=== PATIENT | female | born 1940 | race Caucasian/White ===

== ENCOUNTER 2017-11-27 19:52 | Inpatient (IN) | payer MEDICARE ==
[~2017-11-27] VITALS: Ht 170.2 cm; Wt 73.9 kg
[~2017-11-27 19:52] MED LIST: ACET325 PO; ASPI325 PO; BISA5EC; CARV6.25 PO; CEPH500 PO; FLUSAL1005 INH; FOLI1; GABA300 PO; GABA600 PO; HYDCHL25; IRBE150; LINZESS145 MCG PO; METF500; METF500C PO; Metformin HCl1000 MG PO; NAPR550 PO; Norco 5-325 Ta1 EACH PO; OXYC5 PO; Pravastatin Sod80 MG PO; RXNAPNA550 PO; ZESTORETIC 20-1 EAC1 PO; Zofran Odt4 MG SL
[2017-11-27] MEDS ORDERED: ASCO500 PO (20:08)
[2017-11-27] MEDS ORDERED: Stool Softener100 MG PO (20:08)
[2017-11-27] MEDS ORDERED: PROBIOTIC1 EAC1 PO (20:08)
[2017-11-27] MEDS ORDERED: METTREX2.5 PO (20:09)
[2017-11-27 21:11] LABS: BASOPHILS ABSOLUTE AUTO 0.01 K/mm3 (0.00-0.23); BASOPHILS PERCENT AUTO 0 % (0-2); EOSINOPHILS ABSOLUTE AUTO 0.14 K/mm3 (0.00-0.68); EOSINOPHILS PERCENT AUTO 4 % (0-6); Hematocrit 30.2 % (33.0-51.0); Hemoglobin 10.1 g/dL (11.5-16.0); IMMATURE GRAN PERCENT AUTO 0 % (0-1); LYMPHOCYTES ABSOLUTE AUTO 0.84 K/mm3 (0.84-5.20); LYMPHOCYTES PERCENT AUTO 26 % (21-46); MONOCYTES ABSOLUTE AUTO 0.21 K/mm3 (0.16-1.47); MONOCYTES PERCENT AUTO 6 % (4-13); Mean Corpuscular HGB 34.6 pg (26.0-34.0); Mean Corpuscular HGB Conc 33.4 g/dL (31.5-36.5); Mean Corpuscular Volume 103 fL (80-100); Mean Platelet Volume 11.2 fL (9.1-12.4); NEUTROPHILS ABSOLUTE AUTO 2.07 K/mm3 (1.96-9.15); NEUTROPHILS PERCENT AUTO 63 % (41-73); RDW Coefficient Variation 15.4 % (11.7-14.2); RDW Standard Deviation 57.6 fL (35.1-46.3); Red Blood Cell Count 2.92 M/mm3 (3.80-5.20); White Blood Cell Count 3.27 K/mm3 (4.00-11.30)
[2017-11-27 21:15] LABS: Platelet Count 45 K/mm3 (150-400)
[2017-11-27 21:26] LABS: Albumin, Blood 2.6 g/dL (3.4-5.0); Albumin/Globulin Ratio 0.6 (0.8-1.8); Bilirubin, Total 0.3 mg/dL (0.1-1.0); Bun/Creatinine Ratio 33.9 (12.0-20.0); Calcium, Blood 8.9 mg/dL (8.5-10.1); Creatinine, Blood 1.18 mg/dL (0.40-1.00); Globulin, Blood 4.1 g/dL (2.2-4.0); Potassium, Blood 4.4 mmol/L (3.5-5.5); Total Protein, Blood 6.7 g/dL (6.4-8.2)
[2017-11-27 22:39] LABS: Magnesium, Blood 2.5 mg/dL (1.6-2.4)
[2017-11-29 05:09] LABS: BASOPHILS ABSOLUTE AUTO 0.01 K/mm3 (0.00-0.23); BASOPHILS PERCENT AUTO 0 % (0-2); EOSINOPHILS ABSOLUTE AUTO 0.15 K/mm3 (0.00-0.68); EOSINOPHILS PERCENT AUTO 7 % (0-6); Hematocrit 27.2 % (33.0-51.0); Hemoglobin 8.9 g/dL (11.5-16.0); IMMATURE GRAN ABSOLUTE AUTO 0.01 K/mm3 (0.00-0.10); IMMATURE GRAN PERCENT AUTO 0 % (0-1); LYMPHOCYTES ABSOLUTE AUTO 0.43 K/mm3 (0.84-5.20); LYMPHOCYTES PERCENT AUTO 19 % (21-46); MONOCYTES ABSOLUTE AUTO 0.24 K/mm3 (0.16-1.47); MONOCYTES PERCENT AUTO 10 % (4-13); Mean Corpuscular HGB 34.2 pg (26.0-34.0); Mean Corpuscular HGB Conc 32.7 g/dL (31.5-36.5); Mean Corpuscular Volume 105 fL (80-100); Mean Platelet Volume 10.6 fL (9.1-12.4); NEUTROPHILS ABSOLUTE AUTO 1.47 K/mm3 (1.96-9.15); NEUTROPHILS PERCENT AUTO 64 % (41-73); RDW Coefficient Variation 15.9 % (11.7-14.2); RDW Standard Deviation 59.3 fL (35.1-46.3); White Blood Cell Count 2.31 K/mm3 (4.00-11.30)
[2017-11-29 05:17] LABS: Platelet Count 27 K/mm3 (150-400)
[2017-11-29 05:23] LABS: Bun/Creatinine Ratio 24.6 (12.0-20.0); Calcium, Blood 7.7 mg/dL (8.5-10.1); Creatinine, Blood 1.14 mg/dL (0.40-1.00); Potassium, Blood 4.4 mmol/L (3.5-5.5)
[2017-11-29] MEDS ORDERED: CLIN300 PO (09:34)
== END 2017-11-29 12:53 | disposition home or self-care (01) | DRG 603 ==
LOC: ER 19:52 → MEDS 19:53 → ENPENDDIS 11-29 09:47 → MEDS 11-29 12:53
PROVIDERS: Emergency Medicine; Internal Medicine
DX: L02.211 Cutaneous abscess of abdominal wall (principal); D61.818 Other pancytopenia; J44.9 Chronic obstructive pulmonary disease, unspecified; L03.311 Cellulitis of abdominal wall; I10 Essential (primary) hypertension; E11.9 Type 2 diabetes mellitus without complications; Z90.49 Acquired absence of other specified parts of digestive tract; Z79.82 Long term (current) use of aspirin; Z79.84 Long term (current) use of oral hypoglycemic drugs; F17.200 Nicotine dependence, unspecified, uncomplicated; I71.4 Abdominal aortic aneurysm, without rupture; K43.9 Ventral hernia without obstruction or gangrene; D69.6 Thrombocytopenia, unspecified; L98.499 Non-pressure chronic ulcer of skin of other sites with unspecified severity; Z86.14 Personal history of Methicillin resistant Staphylococcus aureus infection; Z87.01 Personal history of pneumonia (recurrent); Z86.73 Personal history of transient ischemic attack (TIA), and cerebral infarction without residual deficits; D89.9 Disorder involving the immune mechanism, unspecified; Z98.890 Other specified postprocedural states
CPT/HCPCS: 36415; 74177; 80048; 80053; 83605; 83735; 85025; 87070; 87205; 96361; 96365; 96366; 96367; 99285; G0378; J2543; J3370; J7030; Q9967

== ENCOUNTER 2017-12-08 01:10 | Observation (INO) | payer MEDICARE ==
[~2017-12-08] VITALS: Ht 170.2 cm; Wt 70.1 kg
[~2017-12-08 01:10] MED LIST changes: +ASCO500 PO; +CLIN300 PO; +METTREX2.5 PO; +PROBIOTIC1 EAC1 PO; +Stool Softener100 MG PO
[2017-12-08] MEDS ORDERED: LISINOPRIL (01:25)
[2017-12-08 01:59] LABS: Anion Gap 10 mmol/L (6-16); Blood Urea Nitrogen 23 mg/dL (8-24); Bun/Creatinine Ratio 20.2 (12.0-20.0); CO2, Blood 23 mmol/L (21-32); Calcium, Blood 9.3 mg/dL (8.5-10.1); Chloride, Blood 106 mmol/L (98-108); Creatinine, Blood 1.14 mg/dL (0.40-1.00); Glomerular Filtration Rate 49 (60-); Glucose, Blood 80 mg/dL (70-99); Potassium, Blood 4.2 mmol/L (3.5-5.5); Sodium, Blood 139 mmol/L (136-145); Troponin I <0.015 ng/mL (0.000-0.040)
[2017-12-08 02:02] LABS: BASOPHILS ABSOLUTE AUTO 0.03 K/mm3 (0.00-0.23); BASOPHILS PERCENT AUTO 1 % (0-2); EOSINOPHILS ABSOLUTE AUTO 0.24 K/mm3 (0.00-0.68); EOSINOPHILS PERCENT AUTO 5 % (0-6); Hematocrit 30.5 % (33.0-51.0); Hemoglobin 10.1 g/dL (11.5-16.0); IMMATURE GRAN ABSOLUTE AUTO 0.03 K/mm3 (0.00-0.10); IMMATURE GRAN PERCENT AUTO 1 % (0-1); LYMPHOCYTES ABSOLUTE AUTO 1.22 K/mm3 (0.84-5.20); LYMPHOCYTES PERCENT AUTO 24 % (21-46); MONOCYTES ABSOLUTE AUTO 1.19 K/mm3 (0.16-1.47); MONOCYTES PERCENT AUTO 23 % (4-13); Mean Corpuscular HGB 33.6 pg (26.0-34.0); Mean Corpuscular HGB Conc 33.1 g/dL (31.5-36.5); Mean Corpuscular Volume 101 fL (80-100); Mean Platelet Volume 11.8 fL (9.1-12.4); NEUTROPHILS ABSOLUTE AUTO 2.48 K/mm3 (1.96-9.15); NEUTROPHILS PERCENT AUTO 48 % (41-73); Platelet Count 164 K/mm3 (150-400); RDW Coefficient Variation 16.4 % (11.7-14.2); RDW Standard Deviation 59.7 fL (35.1-46.3); Red Blood Cell Count 3.01 M/mm3 (3.80-5.20); White Blood Cell Count 5.19 K/mm3 (4.00-11.30)
[2017-12-08 02:49] LABS: Source, Urine Clean Catch
[2017-12-08 02:52] LABS: Bilirubin, Urine Neg (Neg); Blood, Urine 1+ (Neg); Glucose Qualitative, Urine Neg (Neg); Ketones, Urine Neg (Neg); Leukocyte Esterase, Urine 2+ (Neg); Nitrite, Urine Neg (Neg); Protein, Urine 3+ (Neg); Specific Gravity, Urine 1.015 (1.003-1.022); Urobilinogen, Urine NORM (Normal)
[2017-12-08 02:56] LABS: Appearance, Urine Clear (Clear); Color, Urine Yellow (P-Yellow)
[2017-12-08 02:57] LABS: Bacteria Many /hpf; Red Blood Cells, Urine 0-2 /hpf (0-2); Squamous Epithelial Cells Mod /hpf (Few); White Blood Cells, Urine 25-50 /hpf (0-5)
[2017-12-08 13:46] LABS: Hematocrit 30.1 % (33.0-51.0); Hemoglobin 9.8 g/dL (11.5-16.0); Mean Corpuscular HGB 33.9 pg (26.0-34.0); Mean Corpuscular HGB Conc 32.6 g/dL (31.5-36.5); Mean Platelet Volume 11.4 fL (9.1-12.4); Platelet Count 164 K/mm3 (150-400); RDW Coefficient Variation 16.3 % (11.7-14.2); RDW Standard Deviation 62.4 fL (35.1-46.3); Red Blood Cell Count 2.89 M/mm3 (3.80-5.20); White Blood Cell Count 6.37 K/mm3 (4.00-11.30)
[2017-12-08 13:54] LABS: Mean Corpuscular Volume 104 fL (80-100)
[2017-12-08 14:12] LABS: Albumin, Blood 2.3 g/dL (3.4-5.0); Albumin/Globulin Ratio 0.5 (0.8-1.8); Bilirubin, Total 0.2 mg/dL (0.1-1.0); Bun/Creatinine Ratio 17.3 (12.0-20.0); Calcium, Blood 9.1 mg/dL (8.5-10.1); Creatinine, Blood 1.1 mg/dL (0.40-1.00); Globulin, Blood 4.3 g/dL (2.2-4.0); Potassium, Blood 4.9 mmol/L (3.5-5.5); Total Protein, Blood 6.6 g/dL (6.4-8.2)
[2017-12-10 04:00] LABS: BASOPHILS ABSOLUTE AUTO 0.03 K/mm3 (0.00-0.23); BASOPHILS PERCENT AUTO 1 % (0-2); EOSINOPHILS ABSOLUTE AUTO 0.28 K/mm3 (0.00-0.68); EOSINOPHILS PERCENT AUTO 5 % (0-6); Hematocrit 30.1 % (33.0-51.0); Hemoglobin 9.8 g/dL (11.5-16.0); IMMATURE GRAN ABSOLUTE AUTO 0.02 K/mm3 (0.00-0.10); IMMATURE GRAN PERCENT AUTO 0 % (0-1); LYMPHOCYTES PERCENT AUTO 21 % (21-46); MONOCYTES ABSOLUTE AUTO 1.36 K/mm3 (0.16-1.47); MONOCYTES PERCENT AUTO 26 % (4-13); Mean Corpuscular HGB 33.6 pg (26.0-34.0); Mean Corpuscular HGB Conc 32.6 g/dL (31.5-36.5); Mean Corpuscular Volume 103 fL (80-100); Mean Platelet Volume 11.7 fL (9.1-12.4); NEUTROPHILS ABSOLUTE AUTO 2.42 K/mm3 (1.96-9.15); NEUTROPHILS PERCENT AUTO 46 % (41-73); Platelet Count 185 K/mm3 (150-400); RDW Coefficient Variation 16.1 % (11.7-14.2); Red Blood Cell Count 2.92 M/mm3 (3.80-5.20); White Blood Cell Count 5.21 K/mm3 (4.00-11.30)
[2017-12-10 04:19] LABS: Creatinine, Blood 1.13 mg/dL (0.40-1.00); Potassium, Blood 4.4 mmol/L (3.5-5.5)
[2017-12-10] MEDS ORDERED: LEVFLO500 PO (10:25)
[2017-12-10] MEDS ORDERED: Pedi-Dri 100,0060 GM TOP (10:27)
== END 2017-12-10 10:47 | disposition home or self-care (01) ==
LOC: ER 01:10 → PCU 02:17 → ER 04:20 → PCU 04:26
PROVIDERS: Emergency Medicine; Internal Medicine; Internal Medicine Endocrinology, Diabetes & Metabolism
DX: N39.0 Urinary tract infection, site not specified (principal); R53.1 Weakness; L03.311 Cellulitis of abdominal wall; E86.0 Dehydration; J44.9 Chronic obstructive pulmonary disease, unspecified; I10 Essential (primary) hypertension; F17.210 Nicotine dependence, cigarettes, uncomplicated; Z86.73 Personal history of transient ischemic attack (TIA), and cerebral infarction without residual deficits; Z79.899 Other long term (current) drug therapy; Z88.2 Allergy status to sulfonamides; Z88.5 Allergy status to narcotic agent
CPT/HCPCS: 36415; 51702; 70450; 71045; 80048; 80053; 81001; 84484; 85025; 85027; 87077; 87086; 87186; 93005; 93010; 96361; 96374; 97110; 97116; 97162; 97165; 97530; 99285; G8978; G8979; G8987; G8988; G8989; J0696; J1650; J7030

== ENCOUNTER 2017-12-20 11:40 | Inpatient (IN) | payer MEDICARE ==
[~2017-12-20] VITALS: Ht 170.2 cm; Wt 71.0 kg
[~2017-12-20 11:40] MED LIST changes: +CARV3.125 PO; -CARV6.25 PO; +LEVFLO500 PO; +LISINOPRIL; +Pedi-Dri 100,0060 GM TOP
[2017-12-20 12:14] LABS: Source, Urine Catheter
[2017-12-20 12:17] LABS: Bilirubin, Urine Neg (Neg); Blood, Urine Neg (Neg); Glucose Qualitative, Urine Neg (Neg); Ketones, Urine Neg (Neg); Leukocyte Esterase, Urine 1+ (Neg); Nitrite, Urine Neg (Neg); Protein, Urine 3+ (Neg); Specific Gravity, Urine 1.015 (1.003-1.022); Urobilinogen, Urine NORM (Normal)
[2017-12-20 12:29] LABS: Appearance, Urine Hazy (Clear); Color, Urine Yellow (P-Yellow)
[2017-12-20 12:30] LABS: Amorphous Mod (0-Heavy); Bacteria Mod /hpf; Red Blood Cells, Urine Not Seen /hpf (0-2); Squamous Epithelial Cells Mod /hpf (Few)
[2017-12-20 12:51] LABS: BASOPHILS ABSOLUTE AUTO 0.04 K/mm3 (0.00-0.23); BASOPHILS PERCENT AUTO 0 % (0-2); EOSINOPHILS ABSOLUTE AUTO 0.09 K/mm3 (0.00-0.68); EOSINOPHILS PERCENT AUTO 1 % (0-6); Hematocrit 32.8 % (33.0-51.0); Hemoglobin 10.9 g/dL (11.5-16.0); IMMATURE GRAN ABSOLUTE AUTO 0.02 K/mm3 (0.00-0.10); IMMATURE GRAN PERCENT AUTO 0 % (0-1); LYMPHOCYTES ABSOLUTE AUTO 1.19 K/mm3 (0.84-5.20); LYMPHOCYTES PERCENT AUTO 13 % (21-46); MONOCYTES PERCENT AUTO 17 % (4-13); Mean Corpuscular HGB 33.6 pg (26.0-34.0); Mean Corpuscular HGB Conc 33.2 g/dL (31.5-36.5); Mean Corpuscular Volume 101 fL (80-100); Mean Platelet Volume 11.6 fL (9.1-12.4); NEUTROPHILS ABSOLUTE AUTO 6.45 K/mm3 (1.96-9.15); NEUTROPHILS PERCENT AUTO 69 % (41-73); Platelet Count 108 K/mm3 (150-400); RDW Coefficient Variation 15.1 % (11.7-14.2); RDW Standard Deviation 56.1 fL (35.1-46.3); Red Blood Cell Count 3.24 M/mm3 (3.80-5.20); White Blood Cell Count 9.39 K/mm3 (4.00-11.30)
[2017-12-20 13:01] LABS: Alanine Aminotransfer (ALT/SGP 19 U/L (12-78); Albumin, Blood 2.5 g/dL (3.4-5.0); Albumin/Globulin Ratio 0.5 (0.8-1.8); Alk Phos 46 U/L (50-136); Anion Gap 7 mmol/L (6-16); Aspartate Aminotrans (AST/SGOT 21 U/L (12-37); Bilirubin, Total 0.3 mg/dL (0.1-1.0); Blood Urea Nitrogen 38 mg/dL (8-24); CO2, Blood 29 mmol/L (21-32); Calcium, Blood 8.9 mg/dL (8.5-10.1); Chloride, Blood 103 mmol/L (98-108); Creatinine, Blood 1.15 mg/dL (0.40-1.00); Globulin, Blood 4.8 g/dL (2.2-4.0); Glomerular Filtration Rate 49 (60-); Glucose, Blood 98 mg/dL (70-99); Potassium, Blood 4.1 mmol/L (3.5-5.5); Sodium, Blood 139 mmol/L (136-145); Total Protein, Blood 7.3 g/dL (6.4-8.2); Troponin I <0.015 ng/mL (0.000-0.040)
[2017-12-20 14:21] LABS: CHOL/HDL RATIO 2.6; Cholesterol 113 mg/dL (50-200); HDL Cholesterol 44 mg/dL (>39); LDL/HDL RATIO 1.2; Low Density Lipoprotein Chol 53 mg/dL (0-110); Triglycerides 80 mg/dL (30-160); Very Low Density Lipoprot Chol 16 mg/dL (6-32)
[2017-12-20 20:23] LABS: Albumin, Blood 2.3 g/dL (3.4-5.0); Albumin/Globulin Ratio 0.5 (0.8-1.8); Bilirubin, Total 0.3 mg/dL (0.1-1.0); Bun/Creatinine Ratio 33.9 (12.0-20.0); Calcium, Blood 8.5 mg/dL (8.5-10.1); Creatinine, Blood 1.09 mg/dL (0.40-1.00); Globulin, Blood 4.5 g/dL (2.2-4.0); Potassium, Blood 3.9 mmol/L (3.5-5.5); Total Protein, Blood 6.8 g/dL (6.4-8.2)
[2017-12-21 07:01] LABS: BASOPHILS ABSOLUTE AUTO 0.03 K/mm3 (0.00-0.23); BASOPHILS PERCENT AUTO 0 % (0-2); EOSINOPHILS ABSOLUTE AUTO 0.22 K/mm3 (0.00-0.68); EOSINOPHILS PERCENT AUTO 3 % (0-6); IMMATURE GRAN ABSOLUTE AUTO 0.02 K/mm3 (0.00-0.10); IMMATURE GRAN PERCENT AUTO 0 % (0-1); LYMPHOCYTES PERCENT AUTO 15 % (21-46); MONOCYTES PERCENT AUTO 16 % (4-13); Mean Corpuscular HGB 32.8 pg (26.0-34.0); Mean Corpuscular HGB Conc 32.3 g/dL (31.5-36.5); Mean Corpuscular Volume 102 fL (80-100); Mean Platelet Volume 11.1 fL (9.1-12.4); NEUTROPHILS ABSOLUTE AUTO 4.49 K/mm3 (1.96-9.15); NEUTROPHILS PERCENT AUTO 66 % (41-73); Platelet Count 89 K/mm3 (150-400); RDW Coefficient Variation 15.3 % (11.7-14.2); RDW Standard Deviation 56.6 fL (35.1-46.3); Red Blood Cell Count 3.05 M/mm3 (3.80-5.20); White Blood Cell Count 6.86 K/mm3 (4.00-11.30)
[2017-12-21 07:20] LABS: Albumin, Blood 2.3 g/dL (3.4-5.0); Albumin/Globulin Ratio 0.5 (0.8-1.8); Alk Phos 45 U/L (50-136); Anion Gap 8 mmol/L (6-16); Aspartate Aminotrans (AST/SGOT 20 U/L (12-37); Bilirubin, Total 0.5 mg/dL (0.1-1.0); Blood Urea Nitrogen 37 mg/dL (8-24); CHOL/HDL RATIO 2.6; CO2, Blood 28 mmol/L (21-32); Calcium, Blood 8.6 mg/dL (8.5-10.1); Chloride, Blood 105 mmol/L (98-108); Cholesterol 111 mg/dL (50-200); Creatinine, Blood 1.12 mg/dL (0.40-1.00); Globulin, Blood 4.7 g/dL (2.2-4.0); Glomerular Filtration Rate 50 (60-); Glucose, Blood 85 mg/dL (70-99); HDL Cholesterol 42 mg/dL (>39); LDL/HDL RATIO 1.3; Low Density Lipoprotein Chol 53 mg/dL (0-110); Potassium, Blood 3.9 mmol/L (3.5-5.5); Sodium, Blood 141 mmol/L (136-145); Triglycerides 82 mg/dL (30-160); Very Low Density Lipoprot Chol 16 mg/dL (6-32)
[2017-12-21 07:38] LABS: Alanine Aminotransfer (ALT/SGP 20 U/L (12-78)
[2017-12-22 06:03] LABS: Bun/Creatinine Ratio 33.4 (12.0-20.0); Calcium, Blood 8.8 mg/dL (8.5-10.1); Creatinine, Blood 0.99 mg/dL (0.40-1.00); Potassium, Blood 4.4 mmol/L (3.5-5.5)
[2017-12-23 05:41] LABS: Bun/Creatinine Ratio 31.1 (12.0-20.0); Calcium, Blood 8.4 mg/dL (8.5-10.1); Creatinine, Blood 0.97 mg/dL (0.40-1.00); Potassium, Blood 4.2 mmol/L (3.5-5.5)
[2017-12-23] MEDS ORDERED: ASPI325 PO (13:24)
[2017-12-23] MEDS ORDERED: CLOP75 PO (13:25)
[2017-12-23] MEDS ORDERED: DOCU100 PO (13:25)
[2017-12-23] MEDS ORDERED: BISA10S PR (13:25)
[2017-12-24 05:04] LABS: BASOPHILS ABSOLUTE AUTO 0.02 K/mm3 (0.00-0.23); BASOPHILS PERCENT AUTO 0 % (0-2); EOSINOPHILS ABSOLUTE AUTO 0.21 K/mm3 (0.00-0.68); EOSINOPHILS PERCENT AUTO 3 % (0-6); Hematocrit 32.1 % (33.0-51.0); Hemoglobin 10.6 g/dL (11.5-16.0); IMMATURE GRAN ABSOLUTE AUTO 0.03 K/mm3 (0.00-0.10); IMMATURE GRAN PERCENT AUTO 0 % (0-1); LYMPHOCYTES ABSOLUTE AUTO 1.03 K/mm3 (0.84-5.20); LYMPHOCYTES PERCENT AUTO 15 % (21-46); MONOCYTES PERCENT AUTO 17 % (4-13); Mean Corpuscular HGB 33.8 pg (26.0-34.0); Mean Corpuscular Volume 102 fL (80-100); Mean Platelet Volume 11.3 fL (9.1-12.4); NEUTROPHILS PERCENT AUTO 64 % (41-73); Platelet Count 86 K/mm3 (150-400); RDW Coefficient Variation 14.6 % (11.7-14.2); RDW Standard Deviation 54.4 fL (35.1-46.3); Red Blood Cell Count 3.14 M/mm3 (3.80-5.20); White Blood Cell Count 6.99 K/mm3 (4.00-11.30)
[2017-12-24 05:23] LABS: Albumin, Blood 2.3 g/dL (3.4-5.0); Albumin/Globulin Ratio 0.5 (0.8-1.8); Bilirubin, Total 0.4 mg/dL (0.1-1.0); Bun/Creatinine Ratio 30.3 (12.0-20.0); Calcium, Blood 8.4 mg/dL (8.5-10.1); Creatinine, Blood 1.09 mg/dL (0.40-1.00); Globulin, Blood 4.8 g/dL (2.2-4.0); Magnesium, Blood 2.2 mg/dL (1.6-2.4); Phosphorus, Blood 3.5 mg/dL (2.5-4.9); Potassium, Blood 4.3 mmol/L (3.5-5.5); Total Protein, Blood 7.1 g/dL (6.4-8.2)
[2017-12-25 05:09] LABS: Hematocrit 31.4 % (33.0-51.0); Hemoglobin 10.3 g/dL (11.5-16.0)
[2017-12-25 05:12] LABS: BASOPHILS ABSOLUTE AUTO 0.03 K/mm3 (0.00-0.23); BASOPHILS PERCENT AUTO 0 % (0-2); EOSINOPHILS ABSOLUTE AUTO 0.19 K/mm3 (0.00-0.68); EOSINOPHILS PERCENT AUTO 3 % (0-6); Hemoglobin 10.5 g/dL (11.5-16.0); IMMATURE GRAN ABSOLUTE AUTO 0.03 K/mm3 (0.00-0.10); IMMATURE GRAN PERCENT AUTO 0 % (0-1); LYMPHOCYTES ABSOLUTE AUTO 1.01 K/mm3 (0.84-5.20); LYMPHOCYTES PERCENT AUTO 13 % (21-46); MONOCYTES ABSOLUTE AUTO 1.16 K/mm3 (0.16-1.47); MONOCYTES PERCENT AUTO 15 % (4-13); Mean Corpuscular HGB 33.3 pg (26.0-34.0); Mean Corpuscular HGB Conc 32.8 g/dL (31.5-36.5); Mean Corpuscular Volume 102 fL (80-100); Mean Platelet Volume 12.2 fL (9.1-12.4); NEUTROPHILS ABSOLUTE AUTO 5.11 K/mm3 (1.96-9.15); NEUTROPHILS PERCENT AUTO 68 % (41-73); Platelet Count 95 K/mm3 (150-400); RDW Coefficient Variation 14.6 % (11.7-14.2); Red Blood Cell Count 3.15 M/mm3 (3.80-5.20); White Blood Cell Count 7.53 K/mm3 (4.00-11.30)
[2017-12-25 05:31] LABS: Albumin, Blood 2.2 g/dL (3.4-5.0); Anion Gap 8 mmol/L (6-16); Blood Urea Nitrogen 32 mg/dL (8-24); Bun/Creatinine Ratio 31.4 (12.0-20.0); CO2, Blood 28 mmol/L (21-32); Calcium, Blood 8.3 mg/dL (8.5-10.1); Chloride, Blood 103 mmol/L (98-108); Creatinine, Blood 1.02 mg/dL (0.40-1.00); Glomerular Filtration Rate 56 (60-); Glucose, Blood 80 mg/dL (70-99); Magnesium, Blood 2.2 mg/dL (1.6-2.4); Phosphorus, Blood 3.3 mg/dL (2.5-4.9); Potassium, Blood 4.4 mmol/L (3.5-5.5); Sodium, Blood 139 mmol/L (136-145)
[2017-12-25 14:06] LABS: HEPARIN INDUCED PLATELET AB 0.159 OD (0.000-0.400)
[2017-12-26 04:37] LABS: BASOPHILS ABSOLUTE AUTO 0.03 K/mm3 (0.00-0.23); BASOPHILS PERCENT AUTO 0 % (0-2); EOSINOPHILS ABSOLUTE AUTO 0.27 K/mm3 (0.00-0.68); EOSINOPHILS PERCENT AUTO 3 % (0-6); Hematocrit 31.2 % (33.0-51.0); Hemoglobin 10.3 g/dL (11.5-16.0); IMMATURE GRAN ABSOLUTE AUTO 0.03 K/mm3 (0.00-0.10); IMMATURE GRAN PERCENT AUTO 0 % (0-1); LYMPHOCYTES ABSOLUTE AUTO 0.86 K/mm3 (0.84-5.20); LYMPHOCYTES PERCENT AUTO 8 % (21-46); MONOCYTES ABSOLUTE AUTO 1.05 K/mm3 (0.16-1.47); MONOCYTES PERCENT AUTO 10 % (4-13); Mean Corpuscular HGB 32.8 pg (26.0-34.0); Mean Platelet Volume 11.4 fL (9.1-12.4); NEUTROPHILS ABSOLUTE AUTO 7.99 K/mm3 (1.96-9.15); NEUTROPHILS PERCENT AUTO 78 % (41-73); Platelet Count 95 K/mm3 (150-400); RDW Coefficient Variation 14.4 % (11.7-14.2); RDW Standard Deviation 52.4 fL (35.1-46.3); Red Blood Cell Count 3.14 M/mm3 (3.80-5.20); White Blood Cell Count 10.23 K/mm3 (4.00-11.30)
[2017-12-26 04:42] LABS: Mean Corpuscular Volume 99 fL (80-100)
[2017-12-26 04:54] LABS: Albumin, Blood 2.3 g/dL (3.4-5.0); Anion Gap 9 mmol/L (6-16); Blood Urea Nitrogen 28 mg/dL (8-24); Bun/Creatinine Ratio 27.5 (12.0-20.0); CO2, Blood 24 mmol/L (21-32); Calcium, Blood 8.2 mg/dL (8.5-10.1); Chloride, Blood 107 mmol/L (98-108); Creatinine, Blood 1.02 mg/dL (0.40-1.00); Glomerular Filtration Rate 56 (60-); Glucose, Blood 87 mg/dL (70-99); Magnesium, Blood 2.2 mg/dL (1.6-2.4); Phosphorus, Blood 2.7 mg/dL (2.5-4.9); Potassium, Blood 4.3 mmol/L (3.5-5.5); Sodium, Blood 140 mmol/L (136-145)
[2017-12-27 04:40] LABS: BASOPHILS ABSOLUTE AUTO 0.02 K/mm3 (0.00-0.23); BASOPHILS PERCENT AUTO 0 % (0-2); EOSINOPHILS ABSOLUTE AUTO 0.46 K/mm3 (0.00-0.68); EOSINOPHILS PERCENT AUTO 6 % (0-6); Hematocrit 30.7 % (33.0-51.0); Hemoglobin 10.2 g/dL (11.5-16.0); IMMATURE GRAN ABSOLUTE AUTO 0.02 K/mm3 (0.00-0.10); IMMATURE GRAN PERCENT AUTO 0 % (0-1); LYMPHOCYTES ABSOLUTE AUTO 0.95 K/mm3 (0.84-5.20); LYMPHOCYTES PERCENT AUTO 13 % (21-46); MONOCYTES ABSOLUTE AUTO 0.98 K/mm3 (0.16-1.47); MONOCYTES PERCENT AUTO 13 % (4-13); Mean Corpuscular HGB 33.7 pg (26.0-34.0); Mean Corpuscular HGB Conc 33.2 g/dL (31.5-36.5); Mean Corpuscular Volume 101 fL (80-100); NEUTROPHILS ABSOLUTE AUTO 5.06 K/mm3 (1.96-9.15); NEUTROPHILS PERCENT AUTO 68 % (41-73); Platelet Count 94 K/mm3 (150-400); RDW Coefficient Variation 14.6 % (11.7-14.2); RDW Standard Deviation 53.8 fL (35.1-46.3); Red Blood Cell Count 3.03 M/mm3 (3.80-5.20); White Blood Cell Count 7.49 K/mm3 (4.00-11.30)
[2017-12-27 05:13] LABS: Albumin, Blood 2.2 g/dL (3.4-5.0); Anion Gap 9 mmol/L (6-16); Blood Urea Nitrogen 28 mg/dL (8-24); CO2, Blood 24 mmol/L (21-32); Calcium, Blood 8.1 mg/dL (8.5-10.1); Chloride, Blood 109 mmol/L (98-108); Creatinine, Blood 1.12 mg/dL (0.40-1.00); Glomerular Filtration Rate 50 (60-); Glucose, Blood 86 mg/dL (70-99); Magnesium, Blood 2.2 mg/dL (1.6-2.4); Phosphorus, Blood 2.8 mg/dL (2.5-4.9); Potassium, Blood 4.3 mmol/L (3.5-5.5); Sodium, Blood 142 mmol/L (136-145)
[2017-12-27 10:34] LABS: Vancomycin, Trough 14.7 ug/mL (5.0-10.0)
[2017-12-28 05:03] LABS: Hematocrit 31.8 % (33.0-51.0); Hemoglobin 10.4 g/dL (11.5-16.0)
[2017-12-28 05:27] LABS: Magnesium, Blood 2.3 mg/dL (1.6-2.4)
[2017-12-28 05:31] LABS: Albumin, Blood 2.2 g/dL (3.4-5.0); Anion Gap 8 mmol/L (6-16); Blood Urea Nitrogen 29 mg/dL (8-24); Bun/Creatinine Ratio 27.4 (12.0-20.0); CO2, Blood 25 mmol/L (21-32); Calcium, Blood 8.4 mg/dL (8.5-10.1); Chloride, Blood 109 mmol/L (98-108); Creatinine, Blood 1.06 mg/dL (0.40-1.00); Glomerular Filtration Rate 54 (60-); Glucose, Blood 83 mg/dL (70-99); Phosphorus, Blood 2.8 mg/dL (2.5-4.9); Potassium, Blood 4.2 mmol/L (3.5-5.5); Sodium, Blood 142 mmol/L (136-145)
[2017-12-29 10:15] LABS: BASOPHILS ABSOLUTE AUTO 0.03 K/mm3 (0.00-0.23); BASOPHILS PERCENT AUTO 0 % (0-2); EOSINOPHILS ABSOLUTE AUTO 0.42 K/mm3 (0.00-0.68); EOSINOPHILS PERCENT AUTO 6 % (0-6); Hematocrit 30.8 % (33.0-51.0); Hemoglobin 9.9 g/dL (11.5-16.0); IMMATURE GRAN ABSOLUTE AUTO 0.02 K/mm3 (0.00-0.10); IMMATURE GRAN PERCENT AUTO 0 % (0-1); LYMPHOCYTES ABSOLUTE AUTO 0.92 K/mm3 (0.84-5.20); LYMPHOCYTES PERCENT AUTO 13 % (21-46); MONOCYTES ABSOLUTE AUTO 0.77 K/mm3 (0.16-1.47); MONOCYTES PERCENT AUTO 11 % (4-13); Mean Corpuscular HGB 32.6 pg (26.0-34.0); Mean Corpuscular HGB Conc 32.1 g/dL (31.5-36.5); Mean Corpuscular Volume 101 fL (80-100); Mean Platelet Volume 12.2 fL (9.1-12.4); NEUTROPHILS ABSOLUTE AUTO 4.85 K/mm3 (1.96-9.15); NEUTROPHILS PERCENT AUTO 69 % (41-73); Platelet Count 115 K/mm3 (150-400); RDW Coefficient Variation 14.4 % (11.7-14.2); RDW Standard Deviation 53.3 fL (35.1-46.3); Red Blood Cell Count 3.04 M/mm3 (3.80-5.20); White Blood Cell Count 7.01 K/mm3 (4.00-11.30)
[2017-12-29 10:33] LABS: Albumin, Blood 2.1 g/dL (3.4-5.0); Anion Gap 7 mmol/L (6-16); Blood Urea Nitrogen 29 mg/dL (8-24); Bun/Creatinine Ratio 28.2 (12.0-20.0); CO2, Blood 25 mmol/L (21-32); Calcium, Blood 8.5 mg/dL (8.5-10.1); Chloride, Blood 109 mmol/L (98-108); Creatinine, Blood 1.03 mg/dL (0.40-1.00); Glomerular Filtration Rate 56 (60-); Glucose, Blood 107 mg/dL (70-99); Phosphorus, Blood 2.9 mg/dL (2.5-4.9); Potassium, Blood 4.2 mmol/L (3.5-5.5); Sodium, Blood 141 mmol/L (136-145)
[2017-12-29 10:49] LABS: Vancomycin, Trough 21.2 ug/mL (5.0-10.0)
[2017-12-30 06:24] LABS: Potassium, Blood 4.2 mmol/L (3.5-5.5)
[2017-12-31 05:27] LABS: BASOPHILS ABSOLUTE AUTO 0.03 K/mm3 (0.00-0.23); BASOPHILS PERCENT AUTO 0 % (0-2); EOSINOPHILS ABSOLUTE AUTO 0.51 K/mm3 (0.00-0.68); EOSINOPHILS PERCENT AUTO 7 % (0-6); Hematocrit 31.3 % (33.0-51.0); Hemoglobin 10.2 g/dL (11.5-16.0); IMMATURE GRAN ABSOLUTE AUTO 0.02 K/mm3 (0.00-0.10); IMMATURE GRAN PERCENT AUTO 0 % (0-1); LYMPHOCYTES ABSOLUTE AUTO 1.15 K/mm3 (0.84-5.20); LYMPHOCYTES PERCENT AUTO 16 % (21-46); MONOCYTES ABSOLUTE AUTO 0.91 K/mm3 (0.16-1.47); MONOCYTES PERCENT AUTO 12 % (4-13); Mean Corpuscular HGB 33.1 pg (26.0-34.0); Mean Corpuscular HGB Conc 32.6 g/dL (31.5-36.5); Mean Corpuscular Volume 102 fL (80-100); Mean Platelet Volume 11.6 fL (9.1-12.4); NEUTROPHILS ABSOLUTE AUTO 4.77 K/mm3 (1.96-9.15); NEUTROPHILS PERCENT AUTO 65 % (41-73); Platelet Count 118 K/mm3 (150-400); RDW Coefficient Variation 14.4 % (11.7-14.2); RDW Standard Deviation 53.5 fL (35.1-46.3); Red Blood Cell Count 3.08 M/mm3 (3.80-5.20); White Blood Cell Count 7.39 K/mm3 (4.00-11.30)
[2017-12-31 18:03] LABS: Creatinine, Blood 1.05 mg/dL (0.40-1.00); Vancomycin, Trough 21.8 ug/mL (5.0-10.0)
[2018-01-01 05:22] LABS: Vancomycin, Random 19.9 ug/mL
[2018-01-01 06:13] LABS: Creatinine, Blood 0.96 mg/dL (0.40-1.00); Glomerular Filtration Rate >60 (60-)
[2018-01-01 08:59] LABS: BASOPHILS ABSOLUTE AUTO 0.02 K/mm3 (0.00-0.23); BASOPHILS PERCENT AUTO 0 % (0-2); EOSINOPHILS ABSOLUTE AUTO 0.49 K/mm3 (0.00-0.68); EOSINOPHILS PERCENT AUTO 7 % (0-6); Hematocrit 30.2 % (33.0-51.0); Hemoglobin 9.8 g/dL (11.5-16.0); IMMATURE GRAN ABSOLUTE AUTO 0.02 K/mm3 (0.00-0.10); IMMATURE GRAN PERCENT AUTO 0 % (0-1); LYMPHOCYTES ABSOLUTE AUTO 1.35 K/mm3 (0.84-5.20); LYMPHOCYTES PERCENT AUTO 19 % (21-46); MONOCYTES ABSOLUTE AUTO 0.88 K/mm3 (0.16-1.47); MONOCYTES PERCENT AUTO 12 % (4-13); Mean Corpuscular HGB 33.3 pg (26.0-34.0); Mean Corpuscular HGB Conc 32.5 g/dL (31.5-36.5); Mean Corpuscular Volume 103 fL (80-100); Mean Platelet Volume 12.3 fL (9.1-12.4); NEUTROPHILS ABSOLUTE AUTO 4.47 K/mm3 (1.96-9.15); NEUTROPHILS PERCENT AUTO 62 % (41-73); Platelet Count 120 K/mm3 (150-400); RDW Coefficient Variation 14.5 % (11.7-14.2); RDW Standard Deviation 53.8 fL (35.1-46.3); Red Blood Cell Count 2.94 M/mm3 (3.80-5.20); White Blood Cell Count 7.23 K/mm3 (4.00-11.30)
[2018-01-02 05:25] LABS: BASOPHILS ABSOLUTE AUTO 0.04 K/mm3 (0.00-0.23); BASOPHILS PERCENT AUTO 1 % (0-2); EOSINOPHILS ABSOLUTE AUTO 0.62 K/mm3 (0.00-0.68); EOSINOPHILS PERCENT AUTO 8 % (0-6); Hematocrit 30.7 % (33.0-51.0); IMMATURE GRAN ABSOLUTE AUTO 0.01 K/mm3 (0.00-0.10); IMMATURE GRAN PERCENT AUTO 0 % (0-1); LYMPHOCYTES ABSOLUTE AUTO 1.35 K/mm3 (0.84-5.20); LYMPHOCYTES PERCENT AUTO 18 % (21-46); MONOCYTES ABSOLUTE AUTO 0.95 K/mm3 (0.16-1.47); MONOCYTES PERCENT AUTO 13 % (4-13); Mean Corpuscular HGB 32.5 pg (26.0-34.0); Mean Corpuscular HGB Conc 32.6 g/dL (31.5-36.5); Mean Platelet Volume 11.9 fL (9.1-12.4); NEUTROPHILS ABSOLUTE AUTO 4.58 K/mm3 (1.96-9.15); NEUTROPHILS PERCENT AUTO 61 % (41-73); Platelet Count 133 K/mm3 (150-400); RDW Coefficient Variation 14.3 % (11.7-14.2); RDW Standard Deviation 51.8 fL (35.1-46.3); Red Blood Cell Count 3.08 M/mm3 (3.80-5.20); White Blood Cell Count 7.55 K/mm3 (4.00-11.30)
[2018-01-02 05:27] LABS: Mean Corpuscular Volume 100 fL (80-100)
[2018-01-02 05:54] LABS: Vancomycin, Trough 17.5 ug/mL (5.0-10.0)
[2018-01-03 05:26] LABS: Albumin, Blood 2.2 g/dL (3.4-5.0); Anion Gap 6 mmol/L (6-16); Blood Urea Nitrogen 26 mg/dL (8-24); Bun/Creatinine Ratio 24.8 (12.0-20.0); CO2, Blood 27 mmol/L (21-32); Calcium, Blood 8.5 mg/dL (8.5-10.1); Chloride, Blood 107 mmol/L (98-108); Creatinine, Blood 1.05 mg/dL (0.40-1.00); Glomerular Filtration Rate 54 (60-); Glucose, Blood 81 mg/dL (70-99); Phosphorus, Blood 3.4 mg/dL (2.5-4.9); Potassium, Blood 4.6 mmol/L (3.5-5.5); Sodium, Blood 140 mmol/L (136-145); Vancomycin, Random 21.7 ug/mL
[2018-01-04 04:59] LABS: Hematocrit 29.7 % (33.0-51.0); Hemoglobin 9.7 g/dL (11.5-16.0)
[2018-01-04 05:18] LABS: Albumin, Blood 2.2 g/dL (3.4-5.0); Anion Gap 7 mmol/L (6-16); Blood Urea Nitrogen 25 mg/dL (8-24); Bun/Creatinine Ratio 25.7 (12.0-20.0); CO2, Blood 28 mmol/L (21-32); Calcium, Blood 8.4 mg/dL (8.5-10.1); Chloride, Blood 106 mmol/L (98-108); Creatinine, Blood 0.97 mg/dL (0.40-1.00); Glomerular Filtration Rate 59 (60-); Glucose, Blood 75 mg/dL (70-99); Magnesium, Blood 2.3 mg/dL (1.6-2.4); Phosphorus, Blood 3.5 mg/dL (2.5-4.9); Potassium, Blood 4.6 mmol/L (3.5-5.5); Sodium, Blood 141 mmol/L (136-145)
[2018-01-06 05:33] LABS: Hematocrit 28.9 % (33.0-51.0); Hemoglobin 9.2 g/dL (11.5-16.0); Mean Corpuscular HGB Conc 31.8 g/dL (31.5-36.5); Mean Platelet Volume 11.7 fL (9.1-12.4); Platelet Count 118 K/mm3 (150-400); RDW Coefficient Variation 14.2 % (11.7-14.2); RDW Standard Deviation 54.3 fL (35.1-46.3); Red Blood Cell Count 2.79 M/mm3 (3.80-5.20); White Blood Cell Count 5.95 K/mm3 (4.00-11.30)
[2018-01-06 05:41] LABS: Mean Corpuscular Volume 104 fL (80-100)
[2018-01-06 05:55] LABS: Albumin, Blood 2.1 g/dL (3.4-5.0); Anion Gap 4 mmol/L (6-16); Blood Urea Nitrogen 28 mg/dL (8-24); Bun/Creatinine Ratio 27.2 (12.0-20.0); CO2, Blood 30 mmol/L (21-32); Calcium, Blood 8.4 mg/dL (8.5-10.1); Chloride, Blood 108 mmol/L (98-108); Creatinine, Blood 1.03 mg/dL (0.40-1.00); Glomerular Filtration Rate 56 (60-); Glucose, Blood 79 mg/dL (70-99); Phosphorus, Blood 3.2 mg/dL (2.5-4.9); Sodium, Blood 142 mmol/L (136-145)
== END 2018-01-06 18:00 | DRG 64 ==
LOC: DELPENDDIS → ER 11:40 → MEDS 13:59 → EDPENDDIS 12-23 12:49 → ENPENDDIS 12-23 12:49 → MEDS 01-06 18:00
PROVIDERS: Hospitalist; Internal Medicine; Internal Medicine Endocrinology, Diabetes & Metabolism; Internal Medicine Nephrology; Physician Assistant; Student in an Organized Health Care Education/Training Program
DX: I63.232 Cerebral infarction due to unspecified occlusion or stenosis of left carotid arteries (principal); J18.9 Pneumonia, unspecified organism; G81.91 Hemiplegia, unspecified affecting right dominant side; L03.311 Cellulitis of abdominal wall; J44.1 Chronic obstructive pulmonary disease with (acute) exacerbation; J44.0 Chronic obstructive pulmonary disease with (acute) lower respiratory infection; D62 Acute posthemorrhagic anemia; S31.104A Unspecified open wound of abdominal wall, left lower quadrant without penetration into peritoneal cavity, initial encounter; B95.62 Methicillin resistant Staphylococcus aureus infection as the cause of diseases classified elsewhere; Z66 Do not resuscitate; D63.1 Anemia in chronic kidney disease; D69.59 Other secondary thrombocytopenia; N28.9 Disorder of kidney and ureter, unspecified; E86.9 Volume depletion, unspecified; I44.1 Atrioventricular block, second degree; E88.09 Other disorders of plasma-protein metabolism, not elsewhere classified; R00.1 Bradycardia, unspecified; R07.89 Other chest pain; B35.4 Tinea corporis; K43.9 Ventral hernia without obstruction or gangrene; E11.22 Type 2 diabetes mellitus with diabetic chronic kidney disease; Z99.81 Dependence on supplemental oxygen; I08.0 Rheumatic disorders of both mitral and aortic valves; I12.9 Hypertensive chronic kidney disease with stage 1 through stage 4 chronic kidney disease, or unspecified chronic kidney disease; N18.3 Chronic kidney disease, stage 3 (moderate); E78.5 Hyperlipidemia, unspecified; E78.00 Pure hypercholesterolemia, unspecified; Z22.322 Carrier or suspected carrier of Methicillin resistant Staphylococcus aureus; L40.9 Psoriasis, unspecified; E66.9 Obesity, unspecified; F17.210 Nicotine dependence, cigarettes, uncomplicated; Z90.49 Acquired absence of other specified parts of digestive tract; Z79.899 Other long term (current) drug therapy; Z79.84 Long term (current) use of oral hypoglycemic drugs; Z87.440 Personal history of urinary (tract) infections; Z88.2 Allergy status to sulfonamides; Z87.310 Personal history of (healed) osteoporosis fracture; T45.1X5A Adverse effect of antineoplastic and immunosuppressive drugs, initial encounter; Z91.81 History of falling; R53.81 Other malaise; R40.2412 Glasgow coma scale score 13-15, at arrival to emergency department; R40.2362 Coma scale, best motor response, obeys commands, at arrival to emergency department; R40.2142 Coma scale, eyes open, spontaneous, at arrival to emergency department; R40.2252 Coma scale, best verbal response, oriented, at arrival to emergency department
CPT/HCPCS: 36415; 70450; 70551; 71046; 71260; 74177; 76770; 78452; 80048; 80053; 80061; 80069; 80202; 81001; 82565; 82607; 82746; 82947; 83735; 84100; 84132; 84145; 84484; 85014; 85018; 85025; 85027; 85379; 86022; 87070; 87075; 87077; 87081; 87086; 87147; 87186; 87205; 87493; 92610; 93005; 93010; 93017; 93306; 93880; 94664; 94667; 94760; 96360; 97110; 97112; 97116; 97162; 97166; 97530; 97535; 98960; 99285-25; A9500; G8978; G8979; G8987; G8988; G8996; G8997; G8998; J0456; J0461; J0696; J0881; J1650; J3010; J3370; J7030; J7050; P9612; Q9967

== ENCOUNTER → 2018-04-25 | Outpatient (CLI) | payer MEDICARE ==
[~2018-04-25] MED LIST changes: +BISA10S PR; +CLOP75 PO; +DOCU100 PO
== END ==
LOC: LAB 14:59 → LAB SHORT 14:59
DX: S31.109A Unspecified open wound of abdominal wall, unspecified quadrant without penetration into peritoneal cavity, initial encounter (principal); L98.499 Non-pressure chronic ulcer of skin of other sites with unspecified severity
CPT/HCPCS: 87070; 87205

== ENCOUNTER 2018-06-22 03:52 | Inpatient (IN) | payer MEDICARE ==
[~2018-06-22] VITALS: Ht 167.6 cm; Wt 66.1 kg
[2018-06-22 04:20] LABS: Source, Urine Catheter
[2018-06-22 04:23] LABS: BASOPHILS ABSOLUTE AUTO 0.03 K/mm3 (0.00-0.23); BASOPHILS PERCENT AUTO 0 % (0-2); EOSINOPHILS ABSOLUTE AUTO 0.01 K/mm3 (0.00-0.68); EOSINOPHILS PERCENT AUTO 0 % (0-6); Hemoglobin 14.5 g/dL (11.5-16.0); IMMATURE GRAN ABSOLUTE AUTO 0.16 K/mm3 (0.00-0.10); IMMATURE GRAN PERCENT AUTO 1 % (0-1); LYMPHOCYTES ABSOLUTE AUTO 0.67 K/mm3 (0.84-5.20); LYMPHOCYTES PERCENT AUTO 3 % (21-46); MONOCYTES ABSOLUTE AUTO 0.43 K/mm3 (0.16-1.47); MONOCYTES PERCENT AUTO 2 % (4-13); Mean Corpuscular HGB 32.4 pg (26.0-34.0); Mean Corpuscular HGB Conc 32.2 g/dL (31.5-36.5); Mean Corpuscular Volume 100 fL (80-100); Mean Platelet Volume 10.8 fL (9.1-12.4); NEUTROPHILS ABSOLUTE AUTO 22.73 K/mm3 (1.96-9.15); NEUTROPHILS PERCENT AUTO 95 % (41-73); Platelet Count 185 K/mm3 (150-400); RDW Coefficient Variation 14.4 % (11.7-14.2); RDW Standard Deviation 53.2 fL (35.1-46.3); Red Blood Cell Count 4.48 M/mm3 (3.80-5.20); White Blood Cell Count 24.03 K/mm3 (4.00-11.30)
[2018-06-22 04:23] LABS: Bilirubin, Urine Neg (Neg); Blood, Urine 1+ (Neg); Glucose Qualitative, Urine Neg (Neg); Ketones, Urine Neg (Neg); Leukocyte Esterase, Urine Neg (Neg); Nitrite, Urine Neg (Neg); Protein, Urine 3+ (Neg); Urobilinogen, Urine NORM (Normal)
[2018-06-22 04:28] LABS: Appearance, Urine Clear (Clear); Color, Urine Yellow (P-Yellow)
[2018-06-22 04:29] LABS: Amorphous Mod (0-Heavy); Bacteria Few /hpf; Squamous Epithelial Cells Rare /hpf (Few); White Blood Cells, Urine 0-2 /hpf (0-5)
[2018-06-22 04:37] LABS: International Normalized Ratio 1.1; Prothrombin Time Results 11.3 Sec (9.7-11.5)
[2018-06-22 04:38] LABS: Albumin, Blood 2.8 g/dL (3.4-5.0); Albumin/Globulin Ratio 0.5 (0.8-1.8); Bilirubin, Total 0.6 mg/dL (0.1-1.0); Bun/Creatinine Ratio 36.2 (12.0-20.0); Calcium, Blood 9.1 mg/dL (8.5-10.1); Creatinine, Blood 1.16 mg/dL (0.40-1.00); Globulin, Blood 5.3 g/dL (2.2-4.0); Potassium, Blood 3.9 mmol/L (3.5-5.5); Total Protein, Blood 8.1 g/dL (6.4-8.2); Troponin I 0.017 ng/mL (0.000-0.040)
[2018-06-22 08:29] LABS: Influenza A Negative (NEGATIVE); Influenza B Negative (NEGATIVE)
--- NOTE | 2018-06-22 09:43 | NUR ---
Patient arrived from ER on monitor and was 4 persomn slide transfer to ICU 16 bed. She is alert and oriented and is able to communicate her needs and Hx. She has sling on right arm and dried blood to right side of nose from earlier fall at home. CT and xrays have been done and DNR band placed on right arm. Assessemnet done. 2nd NS bolus continues and Dr Reyes in to see patient, awaiting orders. She moves LE's well and left arm. She is on 3L O@ via NC and sats 96%. Systolic in the 90's with MAP 71 and HR 88.
--- NOTE | 2018-06-22 11:30 | NUR ---
Patient has been resting without complaint. Family in room with patient currently talking with patient. Son called and gave update. patient request small amount of pain med for shoulder pain /. Systolic 90, MAP >65, HR 138.
--- NOTE | 2018-06-22 13:41 | NUR ---
Patient continues to rest, family at bedside. Medicated earlier with Tylenol 650mg and is doing well. VSS. No current pain or needs.
--- NOTE | 2018-06-22 15:28 | NUR ---
VSS, PATIENT REMAINS SLEEPING WITHOUT COMPLAINTS AND FAMILY HAS GONE HOME. SHE AWAKENS FOR CARE AND FALLS RIGHT BACK TO SLEEP. START AC/HS CBG'S AT 1630 MEDIUM SS REGULAR INSULIN.
--- NOTE | 2018-06-22 16:48 | NUR ---
Removed old dressing from LLQ from old ostomy site that still has some drainage that has dried. Cleaned site and applied mepilex dressing. patient states needs to be change twice daily. VSS. She tolerated care well and denies any need for pain medication or any other needs.
--- NOTE | 2018-06-22 19:23 | NUR ---
Family was in room with patient. talked with Dr Reyes and she was able to have pudding and fluids until midnight. Called Dr Russell answer service and called consult for ortho for 06/23 for Fx Karen. VSS. She is currently up to bedside cammode with two assist and was a little shakey.
--- NOTE | 2018-06-22 21:27 | NUR ---
1900 CARE ASSUMED, BEDSIDE REPORT, PT ASSISTED TO BSC. NO DYSPNEA SL WHEEZE, MOIST COUGH, SWALLOWING PHLEGM, TISSUES GIVEN, ENCOURAGED TO EXPECTORATE . SRAVAN WELL. DENIES PAIN RUE, COACHED TO MINIMIZE MOVEMENT, SLING ADJUSTED, PILLOW SUPPORT. ICE REFUSED, PT COMFORT. URINE LEAKAGE NOTED , DRY LINENS, PERICARE. SCDs OFF AT THIS TIME/ PT REQUEST.
[2018-06-23 03:58] LABS: BASOPHILS ABSOLUTE AUTO 0.02 K/mm3 (0.00-0.23); BASOPHILS PERCENT AUTO 0 % (0-2); EOSINOPHILS PERCENT AUTO 0 % (0-6); Hematocrit 24.7 % (33.0-51.0); IMMATURE GRAN ABSOLUTE AUTO 0.07 K/mm3 (0.00-0.10); IMMATURE GRAN PERCENT AUTO 0 % (0-1); LYMPHOCYTES ABSOLUTE AUTO 0.95 K/mm3 (0.84-5.20); LYMPHOCYTES PERCENT AUTO 6 % (21-46); MONOCYTES ABSOLUTE AUTO 0.98 K/mm3 (0.16-1.47); MONOCYTES PERCENT AUTO 6 % (4-13); Mean Corpuscular HGB 32.7 pg (26.0-34.0); Mean Corpuscular HGB Conc 32.4 g/dL (31.5-36.5); Mean Corpuscular Volume 101 fL (80-100); Mean Platelet Volume 11.2 fL (9.1-12.4); NEUTROPHILS PERCENT AUTO 87 % (41-73); Platelet Count 89 K/mm3 (150-400); RDW Coefficient Variation 14.6 % (11.7-14.2); RDW Standard Deviation 53.3 fL (35.1-46.3); Red Blood Cell Count 2.45 M/mm3 (3.80-5.20); White Blood Cell Count 15.92 K/mm3 (4.00-11.30)
[2018-06-23 04:25] LABS: Albumin, Blood 1.9 g/dL (3.4-5.0); Albumin/Globulin Ratio 0.5 (0.8-1.8); Bilirubin, Total 0.3 mg/dL (0.1-1.0); Bun/Creatinine Ratio 37.1 (12.0-20.0); Calcium, Blood 7.8 mg/dL (8.5-10.1); Creatinine, Blood 1.16 mg/dL (0.40-1.00); Globulin, Blood 3.8 g/dL (2.2-4.0); Potassium, Blood 3.5 mmol/L (3.5-5.5)
[2018-06-23 04:27] LABS: Total Protein, Blood 5.7 g/dL (6.4-8.2)
--- NOTE | 2018-06-23 07:48 | NUR ---
PT SLEPT AT LONG INTERVALS, NO FURTHER DESAT EPISODES. IV RATE TO 25 CC/HR TO MODERATE FLUID INTAKE. 400CC URINE/12 HRS. NO FURTHER URINE LEAKAGE NOTED. TYLENOL 650 MG GIVEN FOR C/O RUE PAIN, IMPROVED, PT RETURNED TO SLEEP.
--- NOTE | 2018-06-23 09:37 | NUR ---
0720-ASSUMED CARE OF PT. PT IS ASLEEP. WILL ALLOW PT TO SLEEP IN. 0830-AWAKENED PT AT THIS TIME. PT IS ALERT AND ORIENTED. DENIES PAIN AT THIS TIME. PT ASKING FOR WATER. EXPLAINED TO PT SHE WILL BE RECEIVING ICE CHIPS RATHER THAN WATER SINCE SHE'S NPO. PT AGREED. PT HAS AN ARM SLING TO HER R ARM/SHOULDER. AFEBRILE.
--- NOTE | 2018-06-23 12:02 | NUR ---
SEEN BY DR. SOLER. UPDATED HIM OF PT'S STATUS. PT'S STATUS CHANGED TO MEDICAL.
--- NOTE | 2018-06-23 12:29 | NUR ---
SPOKE WITH DR. BOND REGARDING PT. HE STATED TO KEEP PT NPO. HOLD ALL ANTICOAGULANTS UNTIL FURTHER ORDERS. HE WILL COME BY AND SEE PT SOMETIME TODAY.
--- NOTE | 2018-06-23 13:40 | NUR ---
DR. BOND AT BEDSIDE. UPDATED HIM OF PT'S STATUS. APPLIED A SHOULDER IMMOBILIZER TO PT'S RIGHT SHOULDER.
--- NOTE | 2018-06-23 15:19 | NUR ---
SEEN BY DR. LUJAN. UPDATED HIM OF PT'S STATUS.
[2018-06-23 16:09] LABS: Hematocrit 25.9 % (33.0-51.0); Hemoglobin 8.3 g/dL (11.5-16.0)
--- NOTE | 2018-06-23 16:30 | NUR ---
DR. SOLER WAS NOTIFIED REGARDING PT'S H&H AND BLOOD PRESSURE.
--- NOTE | 2018-06-23 19:34 | NUR ---
SHIFT SUMMARY: PT IS ALERT AND ORIENTED. PT HAS SHOULDER IMMOBILIZER TO HER R SHOULDER. AFEBRILE. PT WAS MEDICATED WITH TYLENOL PAIN x 1. OCCASSIONAL PRODUCTIVE COUGH NOTED BUT UNABLE TO EXPECTORATE. STILL NEED SPUTUM FOR SPUTUM CULTURE. AFEBRILE.
--- NOTE | 2018-06-23 22:00 | NUR ---
EXTREME MOIST COUGHING CAUSING EXCESS DISCOMFORT AT SHOULDER . MEDS STARTED FOR ASSIST W/ COUGH. FLUTTER VALVE ENC AND GOOD EFFORT AND PROMOTES MORE COUGHING. REPORTS VERY MINIMAL PAIN WHEN NOT COUGHING AND POSITION NOT BEING CHANGED. SLING W/ IMMOBILIZATION VERY SECURE IN POSITION. BRUISING AND SWELLING NOTED ON RT UPPER ARM. PHOTOS TAKEN. SCAB ON FACE AREA , PHOTOS TAKEN. ROBERT/ CATH CARE NO SKIN BREAK DOWN. COARSE SOUNDS RT LUNG RUBIO.SOME TENDERNESS AT WOUND ON ABD W/ CLEANING. PHOTO TAKEN. NEURO CHECK WNL . MOVES ALL EXTREMITIES. 4 L AT THIS. TIME. NOTED NO TELE, BUT PLACED BACK ON TELE W/ NO ORDER FOUND. NOTED BURSTS OF AF RVR AND THIS IS WHEN EXERTING W/ REPOSITIONING. DANGLED FOR ABOUT 15 MIN. AND TOLERATED VERY WELL. ENC TO COUGH AND DEEP BREATHE.
--- NOTE | 2018-06-23 23:15 | NUR ---
ASSUMING CARE OF PT AT THIS TIME. PT REPORT RECEIVED AT BEDSIDE WITH OFFGOING NURSE, ALLEN CONCEPCION. PT LAYING IN BED, SLEEPING UPON ENTERING THE ROOM. VS STABLE - SEE VS FS. PT DOES NOT APPEAR TO BE IN DISTRESS AT THIS TIME. WILL REVIEW PLAN OF CARE.
--- NOTE | 2018-06-23 23:30 | NUR ---
ASSESSMENT PT CALM, QUIET, COOPERATIVE, RESPONDS TO VERBAL STIMULI, SPONT OPENS EYES, TALKS AND ANSWERS QUESTIONS APPROPRAITLEY, A&O X4. SENSATION INTACT. DENIES N/T. PT VILLASENOR. PT C/O SLIGHT WEAKNESS RUE. RUE IN SLING. PT DENIES PAIN/DISCOMFORT AT THIS TIME. LUNGS COARSE, LOWER LOBES DIMINISHED. PT ON 5L NC WITH HUMIDIFIED AIR. OXY SAT >90%. RR 18. OCC NONPRODUCTIVE COUGH, MOIST, LOOSE. WAITING FOR SPUTUM SAMPLE AT THIS TIME. AFEBRILE. AFIB WITH PVC'S. HR 100'S. BP STABLE - SEE VS. STRONG RADIAL PULSES. FAINT TIBIAL AND PEDAL PULSES. SKIN WARM, PINK. ACTIVE BT X4 QUADRANTS. ABD SOFT, NONTENDER. NO N/V. NO BM AT THIS TIME. F/C IN PLACE - DARK YELLOW URINE NOTED. PIV X1 - SL. DRESSING TO ABD IS C/D/I. DRESSING CHANGED COMPLETED BY OFFGOING NURSE, ALLEN CONCEPCION.
[2018-06-24 03:49] LABS: BASOPHILS ABSOLUTE AUTO 0.03 K/mm3 (0.00-0.23); BASOPHILS PERCENT AUTO 0 % (0-2); EOSINOPHILS ABSOLUTE AUTO 0.11 K/mm3 (0.00-0.68); EOSINOPHILS PERCENT AUTO 1 % (0-6); Hematocrit 25.2 % (33.0-51.0); Hemoglobin 8.1 g/dL (11.5-16.0); IMMATURE GRAN ABSOLUTE AUTO 0.05 K/mm3 (0.00-0.10); IMMATURE GRAN PERCENT AUTO 1 % (0-1); LYMPHOCYTES ABSOLUTE AUTO 1.04 K/mm3 (0.84-5.20); LYMPHOCYTES PERCENT AUTO 10 % (21-46); MONOCYTES ABSOLUTE AUTO 0.94 K/mm3 (0.16-1.47); MONOCYTES PERCENT AUTO 9 % (4-13); Mean Corpuscular HGB 32.7 pg (26.0-34.0); Mean Corpuscular HGB Conc 32.1 g/dL (31.5-36.5); Mean Corpuscular Volume 102 fL (80-100); NEUTROPHILS ABSOLUTE AUTO 8.61 K/mm3 (1.96-9.15); NEUTROPHILS PERCENT AUTO 80 % (41-73); Platelet Count 93 K/mm3 (150-400); RDW Coefficient Variation 14.6 % (11.7-14.2); RDW Standard Deviation 53.8 fL (35.1-46.3); Red Blood Cell Count 2.48 M/mm3 (3.80-5.20); White Blood Cell Count 10.78 K/mm3 (4.00-11.30)
[2018-06-24 04:10] LABS: Albumin/Globulin Ratio 0.5 (0.8-1.8); Bilirubin, Total 0.4 mg/dL (0.1-1.0); Bun/Creatinine Ratio 35.7 (12.0-20.0); Calcium, Blood 8.1 mg/dL (8.5-10.1); Creatinine, Blood 1.15 mg/dL (0.40-1.00); Globulin, Blood 4.1 g/dL (2.2-4.0); Potassium, Blood 3.6 mmol/L (3.5-5.5); Total Protein, Blood 6.1 g/dL (6.4-8.2)
--- NOTE | 2018-06-24 05:13 | NUR ---
SHIFT ASSESSMENT NO ACUTE CHANGES NOTED T/O SHIFT. PT SLEPT T/O SHIFT. PT CALM, QUIET, COOPERATIVE, RESPONDS TO VERBAL STIMULI, SPONT OPENS EYES, TALKS AND ANSWERS QUESTIONS APPROPRIATELY, A&O X4. SENSATION INTACT. DENIES N/T. PT VILLASENOR. PT C/O SLIGHT WEAKENSS RUE. RUE IN SLIGHT. PT C/O JENSEN DURING SHIFT - MEDICATED WITH TYLENOL PER PHYSICIAN'S ORDER / UTILIZED NONPHARM METHODS. LUNGS COARSE, LOWER LOBES DIMINISHED. PT CURRENTLY ON 4L NC WITH HUMIDIFIED AIR. CONT TO TITRATE OXYGEN TO MAINTAIN SPO2 90% AND GREATER. RR 14 TO 20'S. OCC NONPRODUCTIVE COUGH, MOST, LOOSE. WAITING FOR SPUTUM SAMPLE. AFEBRILE. PT CONVERTS BETWEEN AFIB WITH PVC'S TO SR/ST WITH PVC'S. HR 90'S TO 110'S. BP STABLE - SEE VS FS. STRONG RADIAL PULSES. FAINT TIBIAL AND PEDAL PULSES. SKIN WARM, PINK. ACTIVE BT X4 QUADRANTS. ABD SOFT, NONTENDER. NO N/V. NO BM T/O SHIFT. F/C IN PLACE - DARK YELLOW URINE NOTED. PIV X1 - SL. ABD DRESSING REMAINED C/D/I. WILL CONT TO MONITOR PT AND WILL PROVIDE BEDSIDE REPORT TO ONCOMING NURSE THIS AM.
--- NOTE | 2018-06-24 06:27 | NUR ---
DR. COLEY CALLED DR. COLEY AT [address] COLEY AGAIN AT 0627. INFORMED DR[address] COLEY OF PT'S COMPLAINT OF COUGHING. DR. COLEY ORDERED TESSALON PRN FOR COUGHING D/T PT'S ALLERGY TO CODEINE. WAITING FOR VERIFICATION OF MEDICATION FROM PHARMACY AT THIS TIME. WAITING FOR MEDICATION FROM PHARMACY AT THIS TIME.
--- NOTE | 2018-06-24 08:43 | NUR ---
SPOKE TO DR. SOLER AND DR. VALENTINE. OK TO GIVE ANTICOAGS.
--- NOTE | 2018-06-24 08:55 | NUR ---
DR. SOLER IN TO SEE PATIENT.
--- NOTE | 2018-06-24 09:00 | NUR ---
INITIAL ASSESSMENT PATIENT RESTING QUIETLY IN BED UPON ENTERING ROOM. PATIENT ALERT AND ORIENTED X 4, AFEBRILE. PATIENT HAS NO COMPLAINTS AT THIS TIME. PATIENT SATTING WELL ON 5 L HUMIDIFIED O2 VIA NC. LUNGS ARE COARSE T/O, DIMINISHED IN LOWER LOBES. PATIENT SOB WITH EXERTION. PATIENT HAS MOIST, LOOSE, OCCASIONALLY PRODUCTIVE COUGH. SPUTUM THICK AND EUGENE WHEN SHE DOES GET SOME OUT. PATIENT BOUNCING BETWEEN A. FIB AND ST WITH PVCS. HR LOW 100S TO 120S AT THIS TIME. BP STABLE. GI WNL. NOLASCO DRAINING DARK YELLOW URINE. SKIN IS FRAGILE. PATIENT HAS PSORIASIS. PATIENT HAS SCATTERED BRUISING. SCAB ON NOSE FROM FALL AT HOME. HEELS REDDENED- PROTECTORS PLACED. ABRASION TO R KNEE. WOUND TO L ABDOMEN CLEANSED, ANTIBIOTIC OINTMENT PLACED AND NEW DRESSING APPLIED. IV FLUSHED AND ANTIBIOTICS STARTED. BED LOW, CALL LIGHT IN REACH. WILL CONTINUE TO MONITOR PATIENT FREQUENTLY THROUGHOUT SHIFT.
--- NOTE | 2018-06-24 12:34 | NUR ---
PATIENT RESTING IN BED QUIETLY, NO COMPLAINTS. PATIENT STATES SHE IS TIRED AND DOES NOT WANT TO GET INTO CHAIR OR EAT LUNCH AT THIS TIME. PATIENT ON 6 L HUMIDIFIED O2 VIA NC. NO OTHER ACUTE CHANGES TO NOTE ON AT THIS TIME. WILL CONTINUE TO MONITOR.
--- NOTE | 2018-06-24 15:42 | NUR ---
DR. VALENTINE IN TO SEE PATIENT.
--- NOTE | 2018-06-24 16:30 | NUR ---
PATIENT HAS TEMP OF 100.0 DEGREES FAHRENHEIT. PATIENT HAS NO COMPLAINTS. PATIENT SATTING WELL ON 5-6 L HUMIDIFIED O2 VIA NC. PATIENT IN A. FIB, HR UP TO 130S AT TIMES, MOSTLY LOW 100S TO 1-TEENS. NO ACUTE CHANGES TO NOTE ON AT THIS TIME. WILL CONTINUE TO MONITOR.
--- NOTE | 2018-06-24 18:23 | NUR ---
SHIFT SUMMARY PATIENT NAPPED ON AND OFF THROUGHOUT SHIFT. PATIENT REMAINED ALERT AND ORIENTED. PATIENT HAD TMAX OF 100.0 DEGREES FAHRENHEIT. PATIENT R SHOULDER REMAINED IN IMMOBILIZER. PATIENT REMAINED WEAK. PATIENT SATTED 90% AND GREATER BETWEEN 5-6 L HUMIDIFIED O2 VIA NC. LUNGS REMAINED COARSE THROUGHOUT. PATIENT CONTINUES TO HAVE MOIST, LOOSE COUGH BUT DID NOT COUGH ANYTHING UP THIS SHIFT. WAITING TO OBTAIN NEW SPUTUM SAMPLE LAST ONE WAS CONTAMINATED PER LAB. PATIENT CONTINUES TO BE SOB WITH EXERTION. PATIENT STATES SHE NORMALLY WEARS 2 L NC DAY AND NIGHT AT HOME. PATIENT BETWEEN A. FIB AND ST WITH PVCS- MOSTLY A.FIB. HR RANGED FROM 80S TO 130S, MOSTLY LOW 100S TO 120S. ABDOMINAL HERNIA NOTED THIS SHIFT. NO CHANGE IN. NOLASCO REMAINED DRAINING DARK YELLOW URINE. NO CHANGE IN SKIN. ABDOMINAL DRESSING CHANGED. IV SALINE LOCKED. PATIENT HAD BED BATH THIS SHIFT. PATIENT HAD VISITORS IN AND OUT. BED LOW, CALL LIGHT IN REACH. NO COMPLAINTS AT THIS TIME. WILL CONTINUE TO MONITOR FREQUENTLY UNTIL REPORT GIVEN TO ONCOMING CERAMIC MAKER DEMONSTRATOR NURSE SHORTLY.
[2018-06-25 03:39] LABS: BASOPHILS ABSOLUTE AUTO 0.02 K/mm3 (0.00-0.23); BASOPHILS PERCENT AUTO 0 % (0-2); EOSINOPHILS ABSOLUTE AUTO 0.24 K/mm3 (0.00-0.68); EOSINOPHILS PERCENT AUTO 3 % (0-6); Hematocrit 25.6 % (33.0-51.0); Hemoglobin 8.3 g/dL (11.5-16.0); IMMATURE GRAN ABSOLUTE AUTO 0.06 K/mm3 (0.00-0.10); IMMATURE GRAN PERCENT AUTO 1 % (0-1); LYMPHOCYTES ABSOLUTE AUTO 0.96 K/mm3 (0.84-5.20); LYMPHOCYTES PERCENT AUTO 11 % (21-46); MONOCYTES ABSOLUTE AUTO 0.87 K/mm3 (0.16-1.47); MONOCYTES PERCENT AUTO 10 % (4-13); Mean Corpuscular HGB 32.4 pg (26.0-34.0); Mean Corpuscular HGB Conc 32.4 g/dL (31.5-36.5); Mean Corpuscular Volume 100 fL (80-100); Mean Platelet Volume 10.6 fL (9.1-12.4); NEUTROPHILS ABSOLUTE AUTO 6.94 K/mm3 (1.96-9.15); NEUTROPHILS PERCENT AUTO 76 % (41-73); Platelet Count 113 K/mm3 (150-400); RDW Coefficient Variation 14.5 % (11.7-14.2); RDW Standard Deviation 52.1 fL (35.1-46.3); Red Blood Cell Count 2.56 M/mm3 (3.80-5.20); White Blood Cell Count 9.09 K/mm3 (4.00-11.30)
[2018-06-25 04:01] LABS: Bun/Creatinine Ratio 32.1 (12.0-20.0); Calcium, Blood 8.7 mg/dL (8.5-10.1); Creatinine, Blood 1.06 mg/dL (0.40-1.00)
[2018-06-25 04:04] LABS: Percent Saturation 27.3 % (15.0-50.0)
--- NOTE | 2018-06-25 07:18 | NUR ---
1900: CARE ASSUMED. PT ANXIOUS TO GET TO SLEEP, ASKING FOR MORE COUGH MEDICINE. COUGH HARSH, MOIST, NON-PRODUCTIVE "IT JUST WON'T COME UP". SMALL DEGREE OF O2 DESATURATION AFTER COUGHING PAROXISM. TESSALON GIVEN. HUMIDIFIED O2 AT 6L NASAL CANNULA. ADMITS TO R ARM PAIN, TYLENOL GIVEN, SUBTOTAL RELIEF. GUIFENISEN + CODEINE ADMIN Q 4 HRS TO PROMOTE REST. EPISODE O2 SAT TO 85-86%, O2 TITRATED UP TO 7L. CON'T 85-90, ATTEMPT TO PLACE CANNULA IN MOUTH WHILE ASLEEP NOT TOLERATED. R.T. CALLED, O2 TITRATEDUP TO 8L. PT REPOSITIONED, HOB ELEVATED TO APPROX 25 DEGREE, SPO2 MAINTAINED 92-94%. LATER ATTEMPT TO TITRATE DOWN O2 WHILE POSITION UNCHANGED MET WITH DESATURATION, PT C/O SOB, COUGHING PAROXYSM, SLOW RECOVERY. SPO2 STABLE WITH O2 FLOW 9L. NO CHANGES MADE FOR SEVERAL HOURS, SRAVAN O2 FLOW 7L, SPO2 92%, NO DYSPNEA OR SOB.
--- NOTE | 2018-06-25 07:30 | NUR ---
ASSUMED CARE PT RESTING QUIELTY IN BED. O2 VIA HIGH FLOW NC AT 7L. NO ACUTE DISTRESS OR FURTHER CONCERNS NOTED
--- NOTE | 2018-06-25 08:34 | NUR ---
PT SITTING UPRIGHT IN BED. TOOK A FEW BITES OF BREAKFAST BUT STATED NOTHING TASTES GOOD. GAVE HER AN ENSURE. PT REQUESTS TO LAY BACK DOWN. INFORMED PT THAT IT IS GOOD FOR HER TO SIT UP FOR AWHILE AND WILL SIT HER BACK DOWN IN A LITTLE WHILE. NO FURTHER NEEDS OR CONCERNS AT THIS TIME.
--- NOTE | 2018-06-25 10:11 | NUR ---
BROUGHT TO DR LINDA'S ATTENTION THAT PT NEEDED INCREASED OXYGEN OVERNIGHT AND HER BNP HAS BEEN ELEVATING OVER LAST FEW DAYS. STATES HE WILL PUT IN NEW ORDERS. KEEPING NOLASCO IN PLACE FOR STRICT I AND O AT THIS TIME
--- NOTE | 2018-06-25 10:26 | NUR ---
EDUCATIONAL DIAGNOSTICIAN REPORTED THAT PT'S WAS ADMITTED LAST NIGHT WITH [facility] AND THAT THEY BOTH LIVE AT HOME TOGETHER. COMPUTER PROGRAMMER CONSULTED TO REVIEW AT HOME NEEDS AND SAFETY. INSTITUTE DIRECTOR STATES SHE IS GOING TO REVIEW CASE WITH PATIENT, SPOUSE AND SON TO DETERMINE RESOURCES NEEDED.
--- NOTE | 2018-06-25 11:51 | NUR ---
PHYSICAL THERAPY ATTEMPTED TO GET PT UP TO CHAIR BUT ENDED UP ONLY DANGLING DUE TO HR INCREASING INTO 150S AND PT DESATTED INTO LOW 80S. PT TOOK A FEW MINUTES TO RECOVER, O2 IN MOUTH FOR A FEW MINUTES DURING THIS. RESTING BACK IN BED NOW.
--- NOTE | 2018-06-25 16:23 | NUR ---
PT SITTING UP IN BED VISITING WITH WHO CAME TO VISIT FROM ROOM 330. DENIES NEEDS OR CONCERNS AT THIS TIME.
--- NOTE | 2018-06-25 16:30 | NUR ---
DR LINDA IN TO SEE PT. DISCUSSED HR WITH HIM. STATES NO NEED FOR TELE AND THAT TACHYCARDIA THAT PT IS PRESENTING IS APPROPRIATE FOR SITUATION. OK'D BIOX FOR CONTINUAL MONITORING
--- NOTE | 2018-06-25 18:24 | NUR ---
TRANSFER NOTE RECEIVED HANDOFF REPORT FROM ICU NURSE YOEL. PT HAD FALLEN AND BROKEN HER HUMERUS. ADMITTED FOR SEPSIS-RESOLVED. DIAGNOSED WITH PNEUMONIA AND CHG. PT IS ON 7-9 LPM HIGH FLOW O2. PT DESATS IF SOB. LOOKING TO PLACE PT IN A SNF UPON DC. PT HAS ONLY DANGLED ON SIDE OF BED, NOT AMBULATED SINCE ADMIT. PT TRANSFERED TO THE FLOOR WITHOUT INCIDENT.
--- NOTE | 2018-06-25 18:28 | NUR ---
REPORT GIVEN TO JAMEY SILVA. PT TRANSFERRED TO ROOM 324 VIA BED BY RN. PT'S 'S NURSE AWARE OF TRANSFER AND STATES HE WILL MAKE HIM AWARE OF NEW ROOM NUMBER. NO ACUTE CHANGES OR NEEDS
--- NOTE | 2018-06-26 03:43 | NUR ---
SHIFT SUMMARY PT AWAKE DURING SHIFT REPORT, VISITING WITH FAMILY. PT TX'D FROM ICU; ORIGINALLY ADMITTED FOR SEVERE SEPSIS, PRESENTLY BEING TX FOR CHF AND PNM. PT VERY WEAK AND SOB. LUNGS CTA AT START OF SHIFT, BUT PT DID REQUESTED COUGH MEDICATION X2. R ARM FX D/T FALL AT HOME. PER REPORT, PT FOUND DOWN. HEALING ABRAISIONS ON FACE/NOSE. R ABD WOUND WITH MEPILEX, C/D/I. PICTURES IN CHART. PT PLEASANT AND CO-OP. NOLASCO TO GRAVITY FOR STRICT I&O'S, PATENT. PER REPORT, PT HAD BEEN INCONTINENT D/T WEAKNESS. NO C/O PAIN. CALL LT IN REACH.
[2018-06-26 05:01] LABS: BASOPHILS ABSOLUTE AUTO 0.04 K/mm3 (0.00-0.23); BASOPHILS PERCENT AUTO 0 % (0-2); EOSINOPHILS ABSOLUTE AUTO 0.31 K/mm3 (0.00-0.68); EOSINOPHILS PERCENT AUTO 3 % (0-6); Hematocrit 27.5 % (33.0-51.0); Hemoglobin 8.8 g/dL (11.5-16.0); IMMATURE GRAN ABSOLUTE AUTO 0.07 K/mm3 (0.00-0.10); IMMATURE GRAN PERCENT AUTO 1 % (0-1); LYMPHOCYTES ABSOLUTE AUTO 0.99 K/mm3 (0.84-5.20); LYMPHOCYTES PERCENT AUTO 10 % (21-46); MONOCYTES PERCENT AUTO 11 % (4-13); Mean Corpuscular HGB 31.5 pg (26.0-34.0); Mean Corpuscular Volume 99 fL (80-100); Mean Platelet Volume 11.1 fL (9.1-12.4); NEUTROPHILS ABSOLUTE AUTO 7.14 K/mm3 (1.96-9.15); NEUTROPHILS PERCENT AUTO 75 % (41-73); Platelet Count 131 K/mm3 (150-400); RDW Coefficient Variation 14.1 % (11.7-14.2); RDW Standard Deviation 50.8 fL (35.1-46.3); Red Blood Cell Count 2.79 M/mm3 (3.80-5.20); White Blood Cell Count 9.55 K/mm3 (4.00-11.30)
[2018-06-26 05:22] LABS: Bun/Creatinine Ratio 31.7 (12.0-20.0); Calcium, Blood 8.7 mg/dL (8.5-10.1); Creatinine, Blood 1.01 mg/dL (0.40-1.00); Potassium, Blood 3.6 mmol/L (3.5-5.5)
--- NOTE | 2018-06-26 08:46 | NUR ---
NOTIFIED DR. VALENTINE OF PT'S HR OF 108 AND BP OF 176/89 THIS AM. NOTIFIED THAT PT REPORTS SHE TAKES LISINOPRIL AT HOME BUT IS UNSURE OF DOSAGE. NOTIFIED DR. PT'S MED REC SHOWS SHE TAKES ZESTORETIC 20-[address] VALENTINE SAID HE WOULD REVIEW HER CHART AND PUT IN ORDERS. NO OTHER NEW ORDERS AT THIS TIME.
--- NOTE | 2018-06-26 14:26 | NUR ---
ECHOCARDIOGRAM COMPLETED
--- NOTE | 2018-06-26 14:54 | NUR ---
NOTIFIED DR. VALENTINE PT REPORTS SHE HAS NOT HAD A BM IN 4 DAYS AND DOES NOT HAVE ANY BOWEL CARE ORDERED. DR. VALENTINE SAID TO ORDER STANDARD BOWEL CARE PROTOCOL. MEDICATION INTERACTION WITH DIURETICS CAME UP UPON ENTERING ORDERING SET. CLARIFIED WITH PHARMACY. PHARMACY REPORTS SAFE TO OVERIDE. NO OTHER NEW ORDERS AT THIS TIME.
--- NOTE | 2018-06-26 18:46 | NUR ---
SHIFT SUMMARY- PT DENIES PAIN. PT DENIES SOB AT REST. PT C/O COUGH. MEDS GIVEN PER EMAR. PT DENIES N/V. PT REPORTS NO BM IN [address] VALENTINE NOTIFIED. MEDS GIVEN PER EMAR. PT'S BP 176/89 AND HR [address] VALENTINE NOTIFIED. MEDS GIVEN PER EMAR. PT'S BP THIS BP 149/91. BEDREST AT THIS TIME. TURNS Q2H. NO OTHER SIGNIFICANT CHANGES THIS SHIFT.
--- NOTE | 2018-06-26 18:50 | NUR ---
DR VALENTINE MADE AWARE THAT DR COKER WILL NOT BE BACK TO [facility] UNTIL June. DR VALENTINE REQUESTED THIS RN TO LEAVE MESSAGE ON CONSULT LINE ANYWAY
--- NOTE | 2018-06-26 21:26 | NUR ---
IV PUMP ALARMING, DOSE OF VANCO INFUSED. BEDING NOTED TO BE WET, SALINE LOCK FLUSHED AND IS LEAKING. UNSURE OF HOW MUCH VANCO THE PT RECEIVED. SALINE LOCK TAKEN OUT WITH CATHETER INTACT.
--- NOTE | 2018-06-27 04:29 | NUR ---
SHIFT SUMMARY PT HAS SLEPT WELL DURING THE NIGHT. NO ACUTE CHANGES NOTED, WILL CONTINUE TO MONITOR.
[2018-06-27 05:16] LABS: Albumin, Blood 2.1 g/dL (3.4-5.0); Albumin/Globulin Ratio 0.5 (0.8-1.8); Bilirubin, Total 0.5 mg/dL (0.1-1.0); Bun/Creatinine Ratio 33.7 (12.0-20.0); C-REACTIVE PROTEIN, EXT RANGE 6.72 mg/dL (0.000-0.300); Calcium, Blood 8.6 mg/dL (8.5-10.1); Creatinine, Blood 1.04 mg/dL (0.40-1.00); Globulin, Blood 4.4 g/dL (2.2-4.0); Potassium, Blood 3.6 mmol/L (3.5-5.5); Total Protein, Blood 6.5 g/dL (6.4-8.2)
[2018-06-27 05:44] LABS: BASOPHILS ABSOLUTE AUTO 0.02 K/mm3 (0.00-0.23); BASOPHILS PERCENT AUTO 0 % (0-2); EOSINOPHILS ABSOLUTE AUTO 0.17 K/mm3 (0.00-0.68); EOSINOPHILS PERCENT AUTO 2 % (0-6); Hematocrit 27.3 % (33.0-51.0); Hemoglobin 8.9 g/dL (11.5-16.0); IMMATURE GRAN ABSOLUTE AUTO 0.05 K/mm3 (0.00-0.10); IMMATURE GRAN PERCENT AUTO 1 % (0-1); LYMPHOCYTES ABSOLUTE AUTO 1.11 K/mm3 (0.84-5.20); LYMPHOCYTES PERCENT AUTO 11 % (21-46); MONOCYTES ABSOLUTE AUTO 1.13 K/mm3 (0.16-1.47); MONOCYTES PERCENT AUTO 12 % (4-13); Mean Corpuscular HGB 32.1 pg (26.0-34.0); Mean Corpuscular HGB Conc 32.6 g/dL (31.5-36.5); Mean Corpuscular Volume 99 fL (80-100); Mean Platelet Volume 10.7 fL (9.1-12.4); NEUTROPHILS ABSOLUTE AUTO 7.38 K/mm3 (1.96-9.15); NEUTROPHILS PERCENT AUTO 75 % (41-73); Platelet Count 151 K/mm3 (150-400); RDW Standard Deviation 50.4 fL (35.1-46.3); Red Blood Cell Count 2.77 M/mm3 (3.80-5.20); White Blood Cell Count 9.86 K/mm3 (4.00-11.30)
--- NOTE | 2018-06-27 08:33 | NUR ---
CALLED DR. GO TO SEE IF PT OK TO HAVE PO MEDS THIS AM. DR. GO SAID OK TO GIVE PO MORNING MEDS. NO OTHER NEW ORDERS AT THIS TIME.
--- NOTE | 2018-06-27 19:13 | NUR ---
SHIFT SUMMARY- PT C/O HEADACHE AND COUGH THIS AM. MEDS GIVEN PER EMAR. RAPID RESPONSE CALLED THIS AM. PT'S O2 SATS DROPPED DOWN INTO THE 60'S ON 10L O2 HIGH FLOW NC. RT PUT PT ON 15L NONREBREATHER AND SUCTIONED PT. PT'S O2 SATS CAME UP INTO THE MID TO HIGH 90'S. PT PLACED BACK ON 10L O2 HIGH FLOW NC. DR. OSORIO ORDERED INCENTIVE SPIROMETER, NS AT 75 AN HOUR AND PT TO BE NPO. DENIES N/V. BEDREST AT THIS TIME. TURNS Q2H. NO OTHER SIGNIFICANT CHANGES THIS SHIFT.
--- NOTE | 2018-06-28 04:49 | NUR ---
SHIFT SUMMARY PT HAS HAD NO SIGNIFICANT EVENTS DURING THE NIGHT, NOR ANY C/O'S. IVF'S INFUSING PER PUMP WITHOUT DIFFICULTY. OXYGEN REMAINS ON AT 10L/NC. REQUESTED ROBITUSSIN X2 THIS SHIFT FOR COUGH. WILL CONTINUE TO MONITOR.
[2018-06-28 05:16] LABS: BASOPHILS ABSOLUTE AUTO 0.02 K/mm3 (0.00-0.23); BASOPHILS PERCENT AUTO 0 % (0-2); EOSINOPHILS ABSOLUTE AUTO 0.22 K/mm3 (0.00-0.68); EOSINOPHILS PERCENT AUTO 2 % (0-6); Hematocrit 26.2 % (33.0-51.0); Hemoglobin 8.2 g/dL (11.5-16.0); IMMATURE GRAN ABSOLUTE AUTO 0.07 K/mm3 (0.00-0.10); IMMATURE GRAN PERCENT AUTO 1 % (0-1); LYMPHOCYTES ABSOLUTE AUTO 0.97 K/mm3 (0.84-5.20); LYMPHOCYTES PERCENT AUTO 10 % (21-46); MONOCYTES ABSOLUTE AUTO 1.08 K/mm3 (0.16-1.47); MONOCYTES PERCENT AUTO 11 % (4-13); Mean Corpuscular HGB 31.4 pg (26.0-34.0); Mean Corpuscular HGB Conc 31.3 g/dL (31.5-36.5); Mean Corpuscular Volume 100 fL (80-100); Mean Platelet Volume 11.2 fL (9.1-12.4); NEUTROPHILS ABSOLUTE AUTO 7.22 K/mm3 (1.96-9.15); NEUTROPHILS PERCENT AUTO 75 % (41-73); Platelet Count 146 K/mm3 (150-400); RDW Coefficient Variation 14.5 % (11.7-14.2); RDW Standard Deviation 51.6 fL (35.1-46.3); Red Blood Cell Count 2.61 M/mm3 (3.80-5.20); White Blood Cell Count 9.58 K/mm3 (4.00-11.30)
[2018-06-28 05:34] LABS: Albumin/Globulin Ratio 0.5 (0.8-1.8); Bilirubin, Total 0.6 mg/dL (0.1-1.0); Bun/Creatinine Ratio 32.7 (12.0-20.0); Calcium, Blood 8.3 mg/dL (8.5-10.1); Creatinine, Blood 1.04 mg/dL (0.40-1.00); Magnesium, Blood 2.2 mg/dL (1.6-2.4); Potassium, Blood 3.6 mmol/L (3.5-5.5)
[2018-06-28 16:44] LABS: Vancomycin, Trough 11.4 ug/mL (5.0-10.0)
--- NOTE | 2018-06-28 16:46 | NUR ---
SHIFT SUMMARY PT NOW 2P ASSIST TO THE CHAIR. PT SPEND HALF THE SHIFT IN THE CHAIR. CONSTANCE HENSLEY'ED & INTACT. PT STATING IN THE MID 90S ON 5L O2 VIA NC. DENIES SOB THIS SHIFT. PT STATES THAT SHE "GETS ANXIOUS TO TRANSFER TO THE CHAIR, BUT KNOWS IT IS GOOD FOR HER HEALTH." PT STATES NO BM FOR A WEEK. MILK OF MAG GIVEN. ABD WOUND DRESSING CHANGED. NO OTHER CHANGES IN ASSESSMENT AT THIS TIME. WILL CONTINUE TO MONITOR UNTIL TURNOVER IS COMPLETE.
[2018-06-29 04:39] LABS: BASOPHILS ABSOLUTE AUTO 0.03 K/mm3 (0.00-0.23); BASOPHILS PERCENT AUTO 0 % (0-2); EOSINOPHILS PERCENT AUTO 1 % (0-6); Hematocrit 26.7 % (33.0-51.0); Hemoglobin 8.6 g/dL (11.5-16.0); IMMATURE GRAN ABSOLUTE AUTO 0.12 K/mm3 (0.00-0.10); IMMATURE GRAN PERCENT AUTO 1 % (0-1); LYMPHOCYTES ABSOLUTE AUTO 0.65 K/mm3 (0.84-5.20); LYMPHOCYTES PERCENT AUTO 4 % (21-46); MONOCYTES ABSOLUTE AUTO 1.48 K/mm3 (0.16-1.47); MONOCYTES PERCENT AUTO 9 % (4-13); Mean Corpuscular HGB 32.7 pg (26.0-34.0); Mean Corpuscular HGB Conc 32.2 g/dL (31.5-36.5); Mean Corpuscular Volume 102 fL (80-100); NEUTROPHILS ABSOLUTE AUTO 14.93 K/mm3 (1.96-9.15); NEUTROPHILS PERCENT AUTO 86 % (41-73); Platelet Count 140 K/mm3 (150-400); RDW Coefficient Variation 14.8 % (11.7-14.2); RDW Standard Deviation 52.3 fL (35.1-46.3); Red Blood Cell Count 2.63 M/mm3 (3.80-5.20); White Blood Cell Count 17.41 K/mm3 (4.00-11.30)
[2018-06-29 05:02] LABS: Albumin, Blood 2.1 g/dL (3.4-5.0); Albumin/Globulin Ratio 0.5 (0.8-1.8); Bilirubin, Total 0.6 mg/dL (0.1-1.0); Bun/Creatinine Ratio 34.7 (12.0-20.0); Calcium, Blood 8.1 mg/dL (8.5-10.1); Creatinine, Blood 1.01 mg/dL (0.40-1.00); Globulin, Blood 4.2 g/dL (2.2-4.0); Potassium, Blood 4.3 mmol/L (3.5-5.5); Total Protein, Blood 6.3 g/dL (6.4-8.2)
--- NOTE | 2018-06-29 05:16 | NUR ---
SHIFT SUMMARY PT HAS RESTED OFF AND ON THIS SHIFT. SHE HAD BM THIS SHIFT, THE FIRST IN SEVEN DAYS. PT HOWEVER, STILL CONTINUES TO COMPLAIN OF ABD CRAMPING, AND REFUSED HER 2100 STOOL SOFTNERS. PT MEDICATED X2 WITH TYLENOL FOR THE CRAMPING, WHICH HAS PROVIDED SOME RELIEF. PT HAS REQUIRED 7L O2 THIS SHIFT VIA HIGH FLOW NASAL CANNULA. LUNGS MOIST AND DIMINISHED. BREATHING TREATMENTS PER ORDERS. PT HAS NOT VOIDED, BLADDER SCAN THIS AM SHOWS 498 MLS. PT DENIES ANY BLADDER DISCOMFORT. WILL EXECUTE INTERVENTIONS PER PROTOCOL AND OR ORDERS. NO OTHER CHANGES TO REPORT IVF INFUSING ORDERED. WILL CONTTINUE TO MONITOR AND REPORT TO ONCOMING RN.
--- NOTE | 2018-06-29 06:08 | NUR ---
STRAIGHT CATH PT HAS NOT VOIDED SINCE NOLASCO REMOVAL YESTERDAY. PT BLADDER SCAN THIS AM SHOWED 498 MLS. STRAIGHT CATH PER NURSE DRIVEN PROTOCOL/POLICY. REMOVED 500 MLS OF CLEAR YELLOW URINE. DR. ABRAHAM NOTIFIED SHORTLY THERE AFTER THERE WERE NO NEW ORDERS.
--- NOTE | 2018-06-29 06:12 | NUR ---
[facility] CATH MIXED CROP AND LIVESTOCK FARMER GISELLE BHANDARI MADE AWARE THAT PT TO BE STRAIGHT CATH PER NURSE DRIVEN PROTOCOL. SHE WAS IN AGREEANCE.
--- NOTE | 2018-06-29 08:29 | NUR ---
AT 0810 PT WAS 85% ON 8.0 L. NURSE IN IMMEDIATELY TO ASSESS. BUMPED O2 TO 8.5LPT 86%. THEN AT 0815 TIFFANY PETERSEN, RT IN ROOM TO ASSESS. PT 92% ON 9L AT THIS TIME. PT REPORT FEELING DIZZY. PULSE 103. LUNGS SOUND DIMINISHED BUT CLEAR. PT 92% DANGLING AT SIDE OF BED. PT UP TO CHAIR AT 0840. SATING 90% AT THIS TIME. RT WORKING ON INCENTIVE SPIROMETER.
[2018-06-29 15:35] LABS: Source, Urine Catheter
[2018-06-29 15:42] LABS: Appearance, Urine Clear (Clear); Bilirubin, Urine Neg (Neg); Blood, Urine Neg (Neg); Color, Urine Yellow (P-Yellow); Glucose Qualitative, Urine Neg (Neg); Ketones, Urine Neg (Neg); Leukocyte Esterase, Urine Neg (Neg); Nitrite, Urine Neg (Neg); Protein, Urine 2+ (Neg); Urobilinogen, Urine NORM (Normal)
[2018-06-29 15:50] LABS: Bacteria Rare /hpf; Red Blood Cells, Urine 0-2 /hpf (0-2); Squamous Epithelial Cells Rare /hpf (Few); White Blood Cells, Urine 0-2 /hpf (0-5)
[2018-06-29 16:30] LABS: Vancomycin, Trough 15.6 ug/mL (5.0-10.0)
--- NOTE | 2018-06-29 17:01 | NUR ---
SHIFT SUMMARY PT AXO, PLEASANT AND COOPERATIVE WITH CARE. VSS THOUGH PT'S O2 SATS FELL TO 86-87% THIS MORNING, SEE NOTE. OXYGENATION IMPROVED WITH PT UP TO CHAIR. PT ENCOURAGED TO BE UP TO CHAIR THROUGHOUT THE DAY, PT REFUSED. NURSE WILL CONTINUE TO ENCOURAGE OOB. BLADDER SCAN AT 14[address] RETAIN[address]. [address] GO NOTIFIED AND NEW ORDERS INITATED. 600ML VIA STRAIGHT CATH AT 1506. ABDOMINAL DRESSING CHANGED PER ORDERS. BED IN LOW POSITION, CALL LIGHT WITHIN REACH.
--- NOTE | 2018-06-30 04:49 | NUR ---
SHIFT SUMMARY PT HAS HAD URINARY RENTENTION SINCE HER NOLASCO REMOVAL ON THE . SHE HAS VOIDED VERY LITTLE ON HER OWN AND HAS NEEDED TO BE STRAIGHT CATH EVERY [address] COLEY CALLED AND MADE AWARE OF THIS. NOLASCO ORDERED AND IS TO BE PLACED. PT HAS RESTED MOST OF THE NIGHT. SHE HAS HAD NO COMPLAINTS OF PAIN. BLADDER SCANS GREATER THAN 300MLS WITH EACH SCAN THIS SHIFT. STRAIGHT CATH X1 AND REMOVED 500 MLS. PT STILL REQURING 7-9 L O2. LUNGS DIMINISHED. PT A/OX4, VITALS ARE STABLE. IVF INFUSING ORDERED. ASSESSMENT OTHERWISE UNCHANGED. WILL CONTINUE TO MONITOR AND REPORT TO ONCOMING RN.
[2018-06-30 04:57] LABS: BASOPHILS ABSOLUTE AUTO 0.02 K/mm3 (0.00-0.23); BASOPHILS PERCENT AUTO 0 % (0-2); EOSINOPHILS ABSOLUTE AUTO 0.28 K/mm3 (0.00-0.68); EOSINOPHILS PERCENT AUTO 2 % (0-6); Hematocrit 24.6 % (33.0-51.0); Hemoglobin 7.7 g/dL (11.5-16.0); IMMATURE GRAN ABSOLUTE AUTO 0.06 K/mm3 (0.00-0.10); IMMATURE GRAN PERCENT AUTO 1 % (0-1); LYMPHOCYTES ABSOLUTE AUTO 1.39 K/mm3 (0.84-5.20); LYMPHOCYTES PERCENT AUTO 11 % (21-46); MONOCYTES ABSOLUTE AUTO 1.06 K/mm3 (0.16-1.47); MONOCYTES PERCENT AUTO 9 % (4-13); Mean Corpuscular HGB 32.2 pg (26.0-34.0); Mean Corpuscular HGB Conc 31.3 g/dL (31.5-36.5); Mean Corpuscular Volume 103 fL (80-100); NEUTROPHILS PERCENT AUTO 77 % (41-73); Platelet Count 156 K/mm3 (150-400); RDW Coefficient Variation 15.2 % (11.7-14.2); RDW Standard Deviation 54.4 fL (35.1-46.3); Red Blood Cell Count 2.39 M/mm3 (3.80-5.20); White Blood Cell Count 12.21 K/mm3 (4.00-11.30)
[2018-06-30 05:27] LABS: Albumin, Blood 1.8 g/dL (3.4-5.0); Albumin/Globulin Ratio 0.5 (0.8-1.8); Bilirubin, Total 0.4 mg/dL (0.1-1.0); Bun/Creatinine Ratio 35.2 (12.0-20.0); Calcium, Blood 8.1 mg/dL (8.5-10.1); Creatinine, Blood 0.99 mg/dL (0.40-1.00); Globulin, Blood 3.9 g/dL (2.2-4.0); Potassium, Blood 3.9 mmol/L (3.5-5.5); Total Protein, Blood 5.7 g/dL (6.4-8.2)
[2018-06-30 14:09] LABS: PCO2 Arterial 39.5 mmHg (35-45); pH Blood Arterial 7.46 (7.35-7.45)
[2018-06-30 14:14] LABS: PO2 Arterial 44.9 mmHg (80-100)
--- NOTE | 2018-06-30 18:43 | NUR ---
ATTEMPTED TO TRITRATE PATIENT DOWN ON O2. LEVELS LOW 86 ON 3 L. RETURNED TO 5 L. RT WORKED WITH PATIENT. PATIENT SOB AND EASILY TIRES WHEN MOVING FROM BED TO CHAIR. ATTEMPTED TO HAVE UP IN CHAIR TO HELP WITH LUNGS BUT PATIENT EAGER TO GET BACK TO BED. SHE HAS SLEPT THIS SHIFT. NO COMPLAINTS OTHER THAN SOB WITH EXERCTION. CALL LIGHT WITHIN REACH.
--- NOTE | 2018-07-01 02:57 | NUR ---
0250 PULSE OX ALARMING AND O2 SATS=84% ON 7 LPM. PT AWAKENED AND ENCOURAGED DEEP BREATHS BUT SATS REMAIN UNCHANGED. STATES SHE WAS SLIGHTLY SOB AND RT CALLED FOR RESP.TX.
[2018-07-01 04:51] LABS: BASOPHILS ABSOLUTE AUTO 0.03 K/mm3 (0.00-0.23); BASOPHILS PERCENT AUTO 0 % (0-2); EOSINOPHILS ABSOLUTE AUTO 0.26 K/mm3 (0.00-0.68); EOSINOPHILS PERCENT AUTO 3 % (0-6); Hematocrit 24.1 % (33.0-51.0); Hemoglobin 7.5 g/dL (11.5-16.0); IMMATURE GRAN ABSOLUTE AUTO 0.06 K/mm3 (0.00-0.10); IMMATURE GRAN PERCENT AUTO 1 % (0-1); LYMPHOCYTES ABSOLUTE AUTO 1.26 K/mm3 (0.84-5.20); LYMPHOCYTES PERCENT AUTO 14 % (21-46); MONOCYTES PERCENT AUTO 10 % (4-13); Mean Corpuscular HGB 31.6 pg (26.0-34.0); Mean Corpuscular HGB Conc 31.1 g/dL (31.5-36.5); Mean Corpuscular Volume 102 fL (80-100); NEUTROPHILS ABSOLUTE AUTO 6.66 K/mm3 (1.96-9.15); NEUTROPHILS PERCENT AUTO 73 % (41-73); Platelet Count 154 K/mm3 (150-400); RDW Coefficient Variation 15.3 % (11.7-14.2); RDW Standard Deviation 55.3 fL (35.1-46.3); Red Blood Cell Count 2.37 M/mm3 (3.80-5.20); White Blood Cell Count 9.17 K/mm3 (4.00-11.30)
[2018-07-01 05:15] LABS: Albumin, Blood 1.9 g/dL (3.4-5.0); Albumin/Globulin Ratio 0.5 (0.8-1.8); Bilirubin, Total 0.5 mg/dL (0.1-1.0); Bun/Creatinine Ratio 37.1 (12.0-20.0); Calcium, Blood 8.2 mg/dL (8.5-10.1); Potassium, Blood 3.8 mmol/L (3.5-5.5); Total Protein, Blood 5.9 g/dL (6.4-8.2)
--- NOTE | 2018-07-01 06:01 | NUR ---
07/01/18 4914 PAGED HOSPITALIST ABOUT LOW HGB OF 7.5 AND HX OF CHRONIC ANEMIA. MD STATES "NOT AN ACUTE PROBLEM AND WILL LET PRIMARY DOCTOR DECIDE." VITALS STABLE.
[2018-07-01 17:18] LABS: Vancomycin, Trough 21.9 ug/mL (5.0-10.0)
--- NOTE | 2018-07-01 17:21 | NUR ---
LAB CALLED WITH CRITICAL VALUE AT 5:17. VANCO TROUGH 21.9. LEFT A MESSAGE WITH DR. HOYT PHILOSOPHY FACULTY FOR [place]. WILL HOLD 1700 VANCO UNTIL I REACH DR. HOYT.
--- NOTE | 2018-07-01 18:50 | NUR ---
SHIFT SUMMARY PATIENT A&O X4. RN MEDICATED X1 FOR RIGHT SHOULDER PAIN THIS SHIFT. SOB WITH ANY ACTIVITY. HIGH FLOW O2 @ 10L. PATIENT DESTATS TO LOW-MID 80S WHEN O2 WAS DECREASED TO 5L BY RT. COMPLAINED OF HAVING SOB AND DIFFICULTY BREATHING SO RN INCREASE O2 NEEDED TO KEEP SATS <90%. 1 UNIT PRBCS INFUSED. CRITICAL VANCO TROUGH 21.9. HELD 1700 VANCO. NOTIFIED BACKSHOE PERSON, KENROY AND CALLED PHARMACY. NO ACUTE CHANGES. FAMILY IN TO VISIT. CALL LIGHT WITHIN REACH.
[2018-07-02 06:31] LABS: BASOPHILS ABSOLUTE AUTO 0.02 K/mm3 (0.00-0.23); BASOPHILS PERCENT AUTO 0 % (0-2); EOSINOPHILS ABSOLUTE AUTO 0.33 K/mm3 (0.00-0.68); EOSINOPHILS PERCENT AUTO 4 % (0-6); Hemoglobin 9.5 g/dL (11.5-16.0); IMMATURE GRAN ABSOLUTE AUTO 0.03 K/mm3 (0.00-0.10); IMMATURE GRAN PERCENT AUTO 0 % (0-1); LYMPHOCYTES PERCENT AUTO 11 % (21-46); MONOCYTES ABSOLUTE AUTO 0.84 K/mm3 (0.16-1.47); MONOCYTES PERCENT AUTO 10 % (4-13); Mean Corpuscular HGB 31.7 pg (26.0-34.0); Mean Corpuscular HGB Conc 31.7 g/dL (31.5-36.5); Mean Corpuscular Volume 100 fL (80-100); Mean Platelet Volume 11.1 fL (9.1-12.4); NEUTROPHILS ABSOLUTE AUTO 6.64 K/mm3 (1.96-9.15); NEUTROPHILS PERCENT AUTO 75 % (41-73); Platelet Count 174 K/mm3 (150-400); RDW Coefficient Variation 17.1 % (11.7-14.2); RDW Standard Deviation 61.2 fL (35.1-46.3); White Blood Cell Count 8.86 K/mm3 (4.00-11.30)
[2018-07-02 06:55] LABS: Bun/Creatinine Ratio 35.9 (12.0-20.0); Calcium, Blood 8.4 mg/dL (8.5-10.1); Creatinine, Blood 1.03 mg/dL (0.40-1.00); Potassium, Blood 3.9 mmol/L (3.5-5.5)
--- NOTE | 2018-07-02 07:30 | NUR ---
07/02/18 0630 O2 AT 8 LPM ALL SHIFT WITH SATS FROM 94-98%. slept better this night and only needed pain meds once.VITALS STABLE. TURNED REFULARLY WITH HELP OF STAFF. SLING TO RT ARM. NOLASCO PATENT AND DRAINING WELL. ENCOURAGED ORAL INTAKE BUT HAD POOR APPETITE.
--- NOTE | 2018-07-02 16:19 | NUR ---
SHIFT SUMMARY NO ACUTE CHANGES. PATIENT WORKED WITH PT AND OT TODAY. UP IN CHAIR FOR LUNCH. NO COMPLAINTS OF PAIN OR NAUSEA. PATIENT REMAINS ON 5-7 LITERS OF HI-FLOW OXYGEN TO MAINTAIN OXYGEN SATURATION ABOVE 90%. CALL LIGHT IN REACH, WILL CONTINUE TO MONITOR.
--- NOTE | 2018-07-03 01:43 | NUR ---
07/02/182116 PT LYING IN BED, REPORTS SOB THAT INCREASES WITH EXERTION. ON HIFLOW O2 NC AT 5 3/4 L HUMIDIFIED AT 99%. PT REPORTS COUGH AND REPORTS DARK BROWN SPUTUM, I DID NOT SEE SPUTUM YET. CONSTANCE. BS 114. MULT PATCHES OF SEVERE PSORIASIS WITH VERY THICK SCABS ALL OVER. RECENT L HUMEROUS FX, WEARING IMMOBILIZER. BRUISES ON L SIDE AND L ARM. NO OTHER APPARENT SIGNS OF DISTRESS. CALL LIGHT IS IN REACH.
--- NOTE | 2018-07-03 02:02 | NUR ---
07/02/18 2346 PT LYING IN BED, EYES CLOSED, APPEARS TO BE RESTING. WAKES EASILY TO VERBAL STIMULI. NO APPARENT SIGNS OF DISTRESS. CALL LIGHT IS IN REACH.
--- NOTE | 2018-07-03 02:03 | NUR ---
PT LYING IN BED, EYES CLOSED, APPEARS TO BE RESTING. BREATHING IS EVEN, UNLABORED. NO APPARENT SIGNS OF DISTRESS. CALL LIGHT IS IN REACH.
--- NOTE | 2018-07-03 03:35 | NUR ---
PT LYING IN BED, EYES CLOSED, APPEARS TO BE RESTING. WAKES EASILY TO VERBAL STIMULIT. NO APPARENT SIGNS OF DISTRESS. CALL LIGHT IS IN REACH.
--- NOTE | 2018-07-03 03:45 | NUR ---
PT IS AAO X 4, ON HIFLOW O2 NC HUMIDIFIED AT 5 3/4 L AT 99%. REPORTS SOB THAT INCREASES WITH EXERTION. SCD'S. BS 114. CHRONIC ABD WOUND WITH DRESSING C/D/I. MULT PATCHES OF SEVERE PSORIASIS WITH VERY THICK SCABS ALL OVER. RECENT L HUMEROUS FX FROM FALLING AT HOME, HAS IMMOBILIZER ON.
[2018-07-03 05:26] LABS: BASOPHILS ABSOLUTE AUTO 0.03 K/mm3 (0.00-0.23); BASOPHILS PERCENT AUTO 0 % (0-2); EOSINOPHILS ABSOLUTE AUTO 0.23 K/mm3 (0.00-0.68); EOSINOPHILS PERCENT AUTO 2 % (0-6); Hematocrit 29.4 % (33.0-51.0); Hemoglobin 9.4 g/dL (11.5-16.0); IMMATURE GRAN ABSOLUTE AUTO 0.04 K/mm3 (0.00-0.10); IMMATURE GRAN PERCENT AUTO 0 % (0-1); LYMPHOCYTES ABSOLUTE AUTO 0.89 K/mm3 (0.84-5.20); LYMPHOCYTES PERCENT AUTO 9 % (21-46); MONOCYTES PERCENT AUTO 10 % (4-13); Mean Corpuscular HGB 31.9 pg (26.0-34.0); Mean Corpuscular Volume 100 fL (80-100); Mean Platelet Volume 11.1 fL (9.1-12.4); NEUTROPHILS ABSOLUTE AUTO 7.47 K/mm3 (1.96-9.15); NEUTROPHILS PERCENT AUTO 77 % (41-73); Platelet Count 152 K/mm3 (150-400); RDW Coefficient Variation 16.3 % (11.7-14.2); RDW Standard Deviation 58.8 fL (35.1-46.3); Red Blood Cell Count 2.95 M/mm3 (3.80-5.20); White Blood Cell Count 9.66 K/mm3 (4.00-11.30)
--- NOTE | 2018-07-03 05:33 | NUR ---
PT LYING IN BED, AWAKE, DENIES NEED FOR ANYTHING AT THIS TIME. NO APPARENT SIGNS OF DISTRESS. CALL LIGHT IS IN REACH. NO OTHER CHANGES THIS SHIFT.
[2018-07-03 05:50] LABS: Bun/Creatinine Ratio 34.9 (12.0-20.0); Calcium, Blood 8.6 mg/dL (8.5-10.1); Creatinine, Blood 1.09 mg/dL (0.40-1.00); Potassium, Blood 4.1 mmol/L (3.5-5.5)
--- NOTE | 2018-07-03 19:14 | NUR ---
SHIFT SUMMARY KEMI HAS COMPLAINED OF PAIN TODAY BUT STATED THAT TYLENOL WORKED WELL AND SHE DIDN'T NEED ANYTHING ELSE. HER SKIN AROUND BRACE WAS VERY RED AND SOME BREAKDOWN SHOWN. SPOKE TO DR PACHECO ABOUT THIS, AND SHE STATES THAT IT IS OK TO LEAVE IT OFF WHEN PT IN BED LONG SHE KEEPS HER ARM STILL. R ELBOW VERY SWOLLEN AND BRUISED, MORE SO THAN YESTERDAY PER OT. GOT UP TO CHAIR WITH OT FOR LUNCH TODAY, DECLINED GETTING OOB WITH PT DUE TO FATIGUE. ON 5.5L OXYGEN. CBGS WNL. NOLASCO PATENT AND DRAINING. ASP PRECAUTIONS FOLLOWED. ABDOMINAL WOUND AND DRESSING CDI. PSORIASIS OVER WHOLE BODY, PT STATES SHE IS HAVING HER HOME MED BROUGHT IN. TRIED TO CALL INFECTIOUS DISEASE CONSULT BUT VOICEMAIL OF [facility] [employer] SAYS THAT THEY AREN'T ACCEPTING ANY MORE CONSULTS UNTIL NEXT WEEK, DR HOYT INFORMED. SWALLOWED PILLS WHOLE WITH APPLESAUCE ONE AT A TIME. MEPILEX ON COCCYX, PT STATES SORE AND PILLOWS PLACED UNDER HER SIDES EVERY FEW HOURS.
--- NOTE | 2018-07-04 00:58 | NUR ---
07/03/182037 PT LYING IN BED, REPORTS A LITTLE SOB THAT INCREASES WITH EXERTION, ON 5L NC HIFLOW O2 HUMIDIFIED. REPORTS PAIN IN ARMS, GAVE TYLENOL, WILL EVAL FOR EFFECT. SBD ON R ARM FROM IMMOBILIZER, IMMOBILIZER NOT ON AT THIS TIME PER PT REQUEST. MULT PATCHES OF PSORIASIS WITH THICK SCABS ALL OVER. PLACED SCD'S BACK ON PT. NO OTHER APPARENT SIGNS OF DISTRESS. CALL LIGHT IS IN REACH.
--- NOTE | 2018-07-04 01:12 | NUR ---
PT REQUESTED AND RECIVED TYLENOL, WILL EVAL FOR EFFECT. CHANGED THE DRESSING ON PT'S R ELBOW AND PLACED A LARGER DRESSING ON IT, PER PT REQUEST. DRESSING THAT CAME OFF HAD NO DRAINAGE ON IT. NO OTHER APPARENT SIGNS OF DISTRESS. CALL LIGHT IS IN REACH.
--- NOTE | 2018-07-04 02:10 | NUR ---
PT LYING IN BED, EYES CLOSED, APPEARS TO BE RESTING. BREATHING IS EVEN, UNLABORED. NO APPARENT SIGNS OF DISTRESS. CALL LIGHT IS IN REACH.
--- NOTE | 2018-07-04 03:38 | NUR ---
PT LYING IN BED, EYES CLOSED, APPEARS TO BE RESTING. BREATHING IS EVEN, UNLABORED. NO APPARENT SIGNS OF DISTRESS. CALL LIGHT IS IN REACH.
--- NOTE | 2018-07-04 03:38 | NUR ---
PT IS AAO X 4, ON HIGHFLOW O2 NC HUMIDIFIED AT 5L AT 93%, REPORTS A LITTLE SOB THAT INCREASES WITH EXERTION. REPORTS PAIN IN ARMS, GOT TYLENOL X 2. SCD'S. BS WAS 106.
--- NOTE | 2018-07-04 05:52 | NUR ---
PT LYING IN BED, EYES CLOSED, APPEARS TO BE RESTING. BREATHING IS EVEN, UNLABORED. NO APPARENT SIGNS OF DISTRESS. CALL LIGHT IS IN REACH. NO OTHER CHANGES THIS SHIFT.
[2018-07-04 07:03] LABS: BASOPHILS ABSOLUTE AUTO 0.03 K/mm3 (0.00-0.23); BASOPHILS PERCENT AUTO 0 % (0-2); EOSINOPHILS ABSOLUTE AUTO 0.26 K/mm3 (0.00-0.68); EOSINOPHILS PERCENT AUTO 3 % (0-6); Hematocrit 29.6 % (33.0-51.0); Hemoglobin 9.5 g/dL (11.5-16.0); IMMATURE GRAN ABSOLUTE AUTO 0.04 K/mm3 (0.00-0.10); IMMATURE GRAN PERCENT AUTO 1 % (0-1); LYMPHOCYTES PERCENT AUTO 14 % (21-46); MONOCYTES ABSOLUTE AUTO 1.19 K/mm3 (0.16-1.47); MONOCYTES PERCENT AUTO 14 % (4-13); Mean Corpuscular HGB 33.1 pg (26.0-34.0); Mean Corpuscular HGB Conc 32.1 g/dL (31.5-36.5); NEUTROPHILS ABSOLUTE AUTO 5.92 K/mm3 (1.96-9.15); NEUTROPHILS PERCENT AUTO 69 % (41-73); NRBC ABSOLUTE 0.02 K/mm3 (0.00-0.02); NRBC Auto 0.2 /100 WBC (0.0-0.2); RDW Coefficient Variation 15.9 % (11.7-14.2); RDW Standard Deviation 58.1 fL (35.1-46.3); Red Blood Cell Count 2.87 M/mm3 (3.80-5.20); White Blood Cell Count 8.64 K/mm3 (4.00-11.30)
[2018-07-04 07:11] LABS: Mean Corpuscular Volume 103 fL (80-100); Mean Platelet Volume 11.5 fL (9.1-12.4); Platelet Count 132 K/mm3 (150-400)
[2018-07-04 07:18] LABS: Bun/Creatinine Ratio 30.8 (12.0-20.0); Calcium, Blood 8.3 mg/dL (8.5-10.1); Creatinine, Blood 1.3 mg/dL (0.40-1.00); Potassium, Blood 4.5 mmol/L (3.5-5.5)
--- NOTE | 2018-07-04 18:08 | NUR ---
SHIFT SUMMARY PATIENT A&O X4. RIGHT SHOULDER, ARM VERY BRUISED. PATIENT HAD SOME COMPLAINTS OF PAIN TO THIS ARM. RN MEDICATED X 2. DENIES ANY NAUSEA. SOB WITH EXERTION. HIGH FLOW OXYGEN @ 4L, SATS <90%. UP TO THE SIDE OF THE BED WITH PT TODAY. BREATHING TREATMENTS PER RT. FAMILY AT THE BEDSIDE THIS SHIFT. DRESSING ON COCCYX C/D/I. MEPILEX DRESSING TO LLQ CHANGED, ABX OINTMENT APPLIED. NO ACUTE CHANGES. CALL LIGHT WITHIN REACH. RN WILL CONTINUE TO MONITOR.
[2018-07-05 04:55] LABS: BASOPHILS ABSOLUTE AUTO 0.04 K/mm3 (0.00-0.23); BASOPHILS PERCENT AUTO 1 % (0-2); EOSINOPHILS ABSOLUTE AUTO 0.13 K/mm3 (0.00-0.68); EOSINOPHILS PERCENT AUTO 2 % (0-6); Hematocrit 29.9 % (33.0-51.0); Hemoglobin 9.4 g/dL (11.5-16.0); IMMATURE GRAN ABSOLUTE AUTO 0.03 K/mm3 (0.00-0.10); IMMATURE GRAN PERCENT AUTO 0 % (0-1); LYMPHOCYTES ABSOLUTE AUTO 1.02 K/mm3 (0.84-5.20); LYMPHOCYTES PERCENT AUTO 12 % (21-46); MONOCYTES ABSOLUTE AUTO 1.04 K/mm3 (0.16-1.47); MONOCYTES PERCENT AUTO 12 % (4-13); Mean Corpuscular HGB 31.3 pg (26.0-34.0); Mean Corpuscular HGB Conc 31.4 g/dL (31.5-36.5); Mean Platelet Volume 10.6 fL (9.1-12.4); NEUTROPHILS ABSOLUTE AUTO 6.48 K/mm3 (1.96-9.15); NEUTROPHILS PERCENT AUTO 74 % (41-73); Platelet Count 171 K/mm3 (150-400); RDW Coefficient Variation 15.5 % (11.7-14.2); RDW Standard Deviation 54.5 fL (35.1-46.3); White Blood Cell Count 8.74 K/mm3 (4.00-11.30)
[2018-07-05 04:57] LABS: Mean Corpuscular Volume 100 fL (80-100)
[2018-07-05 05:16] LABS: Albumin, Blood 2.1 g/dL (3.4-5.0); Albumin/Globulin Ratio 0.5 (0.8-1.8); Bilirubin, Total 0.5 mg/dL (0.1-1.0); Bun/Creatinine Ratio 33.3 (12.0-20.0); Calcium, Blood 8.7 mg/dL (8.5-10.1); Creatinine, Blood 1.35 mg/dL (0.40-1.00); Magnesium, Blood 2.3 mg/dL (1.6-2.4); Phosphorus, Blood 3.5 mg/dL (2.5-4.9); Potassium, Blood 4.3 mmol/L (3.5-5.5); Total Protein, Blood 6.1 g/dL (6.4-8.2)
--- NOTE | 2018-07-05 06:05 | NUR ---
SHIFT SUMMARY PT HAD FAIRLY UNREMARKABLE SHIFT. PT SLEPT WELL WITH PERIODS OF AWAKING WITH SOME SOB. PT WAS ASSESSED AND HER O2 WAS INCREASED FOR BRIEF PERIOD. SOB WAS RELIEVED AND O2 REDUCED BACK TO 4 LPM. PT HAD SOME SHOULDER DISCOMFORT AND TX PER EMAR. PT IS BREATHING EASY AND SLEEPING. CALL LIGHT IN REACH. BED LOW FOR SAFETY.
--- NOTE | 2018-07-05 19:11 | NUR ---
SHIFT SUMMARY: NO ACUTE CHANGES TO REPORT THIS SHIFT. PT A&O; CALM AND COOPERATIVE WITH CARE. MEDICATED FOR R SHOULDER PAIN PER EMAR. 5L O2 REQUIRED TO MAINTAIN SATURATIONS; PATIENT USES 2L AT HOME. NOLASCO IN PLACE FOR URINARY RETENTION; PATENT AND DRAINING. ASPIRATION PRECAUTIONS: MEDS WHOLE IN APPLE SAUCE; THICKENED LIQUIDS; NO STRAWS. IV ABX CONTINUING. REPORT GIVEN TO ONCOMING RN.
--- NOTE | 2018-07-06 03:07 | NUR ---
PATIENT STATING 91% ON 6L O2 NC WITH HR OF 79. STATS 84%-89% ON 5L. CALL LIGHT IN REACH. WILL CONTINUE TO MONITOR.
--- NOTE | 2018-07-06 04:44 | NUR ---
SHIFT SUMMARY PATIENT HAD NO ACUTE CHANGES OBSERVED DURING THE SHIFT. AXO X4 AND BEDFAST. MEDS WHOLE WITH APPLE SAUCE. AHS=884. NOLASCO PATENT AND DRAINING. ON 6L O2 N/C. PATIENT DESTATING ON 5L O2 N/C 84-89%. REPORTED BACK PAIN AND RECEIVED ULTRAM 50 MG X ONE PER EMAR. DENIES N/V. CALL LIGHT IN REACH. BED IN LOWEST POSITION. WILL CONTINUE TO MONITOR UNTIL DAY SHIFT NURSE ASSUMES CARE.
[2018-07-06 05:08] LABS: Calcium, Blood 8.9 mg/dL (8.5-10.1); Creatinine, Blood 1.4 mg/dL (0.40-1.00); Potassium, Blood 4.9 mmol/L (3.5-5.5)
--- NOTE | 2018-07-06 17:02 | NUR ---
PT HAS BEEN RESTING IN BED ON BEDREST. AO AND COOPERATIVE OF CARE. PT DID HAVE O2 START TO GET DOWN LOW 90s AND HIGH 80s, BUT THIS SEEMS TO HAVE RESOLVE THROUGH THE DAY. PT STARTED ON 6L AND IS NOW ON 5L O2 KEEPING AT AROUND 92%. PT COOPERATIVE OF ALL CARE. WILL MONITOR.
--- NOTE | 2018-07-07 00:10 | NUR ---
PATIENT STATING 92-94% ON 5L O2 NC. PATIENT WILL DESTAT WITH EXERTION, REPOSITIONING AND ANXIETY TO 84-87%. PATIENT SLEEPING. CALL LIGHT IN REACH.
--- NOTE | 2018-07-07 04:31 | NUR ---
SHIFT SUMMARY PATIENT REPORTS HAVING TROUBLE BREATHING AND STATING 84-87% ON 5L O2 NC. PATIENT REPOSITIONED AND STATING 90-92% AND 92-94% SLEEPING ON 5L. AXOX 3 AND BEDFAST. MEDS WHOLE WITH APPLE SAUCE AND NECTAR THICK LIQUIDS. CBG 117 CNI. DENIES PAIN AND N/V. VSS/AFEBRILE. CALLL LIGHT IN REACH. BED IN LOWEST POSITION. WILL CONTINUE TO MONITOR UNTIL DAY SHIFT NURSE ASSUMES CARE.
[2018-07-07 05:02] LABS: BASOPHILS ABSOLUTE AUTO 0.02 K/mm3 (0.00-0.23); BASOPHILS PERCENT AUTO 0 % (0-2); EOSINOPHILS ABSOLUTE AUTO 0.14 K/mm3 (0.00-0.68); EOSINOPHILS PERCENT AUTO 2 % (0-6); Hemoglobin 9.7 g/dL (11.5-16.0); IMMATURE GRAN ABSOLUTE AUTO 0.02 K/mm3 (0.00-0.10); IMMATURE GRAN PERCENT AUTO 0 % (0-1); LYMPHOCYTES ABSOLUTE AUTO 0.97 K/mm3 (0.84-5.20); LYMPHOCYTES PERCENT AUTO 13 % (21-46); MONOCYTES ABSOLUTE AUTO 1.24 K/mm3 (0.16-1.47); MONOCYTES PERCENT AUTO 16 % (4-13); Mean Corpuscular HGB 31.5 pg (26.0-34.0); Mean Corpuscular HGB Conc 31.3 g/dL (31.5-36.5); Mean Corpuscular Volume 101 fL (80-100); Mean Platelet Volume 11.1 fL (9.1-12.4); NEUTROPHILS ABSOLUTE AUTO 5.18 K/mm3 (1.96-9.15); NEUTROPHILS PERCENT AUTO 68 % (41-73); Platelet Count 181 K/mm3 (150-400); RDW Coefficient Variation 15.2 % (11.7-14.2); RDW Standard Deviation 55.5 fL (35.1-46.3); Red Blood Cell Count 3.08 M/mm3 (3.80-5.20); White Blood Cell Count 7.57 K/mm3 (4.00-11.30)
[2018-07-07 05:21] LABS: Albumin, Blood 2.2 g/dL (3.4-5.0); Albumin/Globulin Ratio 0.5 (0.8-1.8); Bilirubin, Total 0.5 mg/dL (0.1-1.0); Bun/Creatinine Ratio 35.5 (12.0-20.0); Creatinine, Blood 1.52 mg/dL (0.40-1.00); Globulin, Blood 4.4 g/dL (2.2-4.0); Potassium, Blood 4.9 mmol/L (3.5-5.5); Total Protein, Blood 6.6 g/dL (6.4-8.2)
--- NOTE | 2018-07-07 11:03 | NUR ---
SPOKE WITH DR. HYAES. ORDERED TO D/C PATIENT NOLASCO AND TURN O2 FROM 5L TO 4L AND MAINTAIN O2 SATS GREATER THAN OR EQUAL TO 92%.
--- NOTE | 2018-07-07 15:03 | NUR ---
APPROVAL FOR CARE Pt gave consent for nursing informatics clinical analyst to provide care on 07/08/2018.
--- NOTE | 2018-07-07 17:40 | NUR ---
SHIFT SUMMARY PATIENT A&O X4. UP TO CHAIR FOR BREAKFAST, REFUSED TO GET UP FOR THE REST OF HER MEALS. MEDICATED X2 FOR RIGHT SHOULDER/ARM PAIN. SOB WITH EXERTION. OXYGEN @ 5L SATS REMAINING ABOVE 92%. HAS NOT HAD A BOWEL MOVEMENT IN SEVERAL DAYS. RN MEDICATED PER EMAR. RESTING THROUGHOUT THE SHIFT. DRESSING ON LLQ CHANGED AND ABX OINTMENT APPLIED PER ORDERS. CALL LIGHT WITHIN REACH. NO ACUTE CHANGES. RN WILL CONTINUE TO MONITOR.
[2018-07-08 04:59] LABS: BASOPHILS ABSOLUTE AUTO 0.04 K/mm3 (0.00-0.23); BASOPHILS PERCENT AUTO 0 % (0-2); EOSINOPHILS ABSOLUTE AUTO 0.18 K/mm3 (0.00-0.68); EOSINOPHILS PERCENT AUTO 2 % (0-6); Hemoglobin 10.9 g/dL (11.5-16.0); IMMATURE GRAN ABSOLUTE AUTO 0.03 K/mm3 (0.00-0.10); IMMATURE GRAN PERCENT AUTO 0 % (0-1); LYMPHOCYTES ABSOLUTE AUTO 0.97 K/mm3 (0.84-5.20); LYMPHOCYTES PERCENT AUTO 10 % (21-46); MONOCYTES PERCENT AUTO 13 % (4-13); Mean Corpuscular HGB 32.4 pg (26.0-34.0); Mean Corpuscular HGB Conc 31.1 g/dL (31.5-36.5); Mean Platelet Volume 10.9 fL (9.1-12.4); NEUTROPHILS ABSOLUTE AUTO 6.87 K/mm3 (1.96-9.15); NEUTROPHILS PERCENT AUTO 74 % (41-73); Platelet Count 176 K/mm3 (150-400); RDW Coefficient Variation 15.2 % (11.7-14.2); RDW Standard Deviation 57.6 fL (35.1-46.3); Red Blood Cell Count 3.36 M/mm3 (3.80-5.20); White Blood Cell Count 9.29 K/mm3 (4.00-11.30)
[2018-07-08 05:00] LABS: Mean Corpuscular Volume 104 fL (80-100)
--- NOTE | 2018-07-08 05:05 | NUR ---
SHIFT SUMMARY: PT IS ALERT AND ORIENTED. PT IS CALM AND COOPERATIVE WITH CARE. PT CALLS APPROPRIATELY. PT NOT OUT OF BED OVERNIGHT, INCONTINENT SEVERAL TIMES, CHANGED AND CLEANED NEEDED. FAMILY IN VISITING AT THE START OF SHIFT. PT REPORTS LLE NERVE PAIN, GAVE PRN TRAMADOL. PT DENIES NAUSEA, VOMITING, AND SOB. POSSIBLE DC TODAY. NO ACUTE CHANGES OR COMPLICATIONS OVERNIGHT. WILL REPORT TO DAY NURSE.
[2018-07-08 05:37] LABS: Bun/Creatinine Ratio 36.3 (12.0-20.0); Calcium, Blood 9.4 mg/dL (8.5-10.1); Creatinine, Blood 1.57 mg/dL (0.40-1.00); Potassium, Blood 5.1 mmol/L (3.5-5.5)
--- NOTE | 2018-07-08 16:31 | NUR ---
PT. LYING QUIETLY EYES CLOSED. BREATHING EVEN AND DEEP, HOB UP CONTINUOUS BIOX IN PLACE. BIOX 94% ON 3.5 LITERS VIA NC, HR 64 BPM
--- NOTE | 2018-07-08 18:31 | NUR ---
PT. SITTING UP AT 90 DEGREES IN BED EATING DINNER. PT. WAS TO GO [facility] TODAY BUT DID NOT GET APPROVAL FROM HER INSURANCE, HOPEFULLY SHE WILL GO TOMORROW. NO NOTEABLE CHANGES THIS SHIFT.
--- NOTE | 2018-07-09 05:01 | NUR ---
SHIFT SUMMARY NO CHANGES THIS SHIFT. MEDICATED FOR PAIN X1. PT HAS SLEPT FOR MOST OF THE NIGHT. SHE IS VOIDING WITHOUT DIFFICULTY. 4L O2 IN PLACE. BREATHING TREATMENTS PER ORDERS. PT A/OX4, CALLS APPROPRIATELY. POSSIBLE DC TODAY. WILL CONTINUE TO MONITOR AND REPORT TO ONCOMING RN.
--- NOTE | 2018-07-09 14:30 | NUR ---
PT. DISCHARGED TO [facility] VIA [facility]. OXYGEN IN PLACE. UNABLE TO REACH ANYONE FOR REPORT.
[2018-07-09] MEDS ORDERED: BENZ100A PO (18:34)
[2018-07-09] MEDS ORDERED: ACETYLCYST200 MG/1 M INH (18:34)
[2018-07-09] MEDS ORDERED: FURO40 PO (18:35)
[2018-07-09] MEDS ORDERED: DOCU100 PO (18:35)
[2018-07-09] MEDS ORDERED: ALBU3IS INH (18:39)
[2018-07-09] MEDS ORDERED: Milk Of Ma400 MG/5 M PO (18:40)
[2018-07-09] MEDS ORDERED: LISI5 PO (18:40)
[2018-07-09] MEDS ORDERED: MULTIVITAM9 MG/15 ML PO (18:43)
[2018-07-09] MEDS ORDERED: METO25ER PO (18:44)
[2018-07-09] MEDS ORDERED: SPIR25 PO (18:44)
[2018-07-09] MEDS ORDERED: TRAM50 PO (18:47)
== END 2018-07-09 14:19 | DRG 871 ==
LOC: DELPENDDIS → ER 03:52 → ICUW 09:00 → MEDS 09:01 → ICUW 09:04 → MEDS 06-25 18:18 → ENPENDDIS 07-08 14:44 → MEDS 07-09 14:19
PROVIDERS: Emergency Medicine; Family Medicine; Hospitalist; Internal Medicine; Internal Medicine Critical Care Medicine; Pharmacist; ADMIT Family Medicine
PROC: 30233N1 Transfusion of Nonautologous Red Blood Cells into Peripheral Vein, Percutaneous Approach (ICD-10-PCS; principal; 2018-06-29)
DX: A41.89 Other specified sepsis (principal); R65.21 Severe sepsis with septic shock; J18.9 Pneumonia, unspecified organism; J96.21 Acute and chronic respiratory failure with hypoxia; I50.33 Acute on chronic diastolic (congestive) heart failure; S32.029A Unspecified fracture of second lumbar vertebra, initial encounter for closed fracture; D62 Acute posthemorrhagic anemia; M80.80XA Other osteoporosis with current pathological fracture, unspecified site, initial encounter for fracture; J44.1 Chronic obstructive pulmonary disease with (acute) exacerbation; I69.351 Hemiplegia and hemiparesis following cerebral infarction affecting right dominant side; K63.2 Fistula of intestine; I13.0 Hypertensive heart and chronic kidney disease with heart failure and stage 1 through stage 4 chronic kidney disease, or unspecified chronic kidney disease; I48.0 Paroxysmal atrial fibrillation; Z79.01 Long term (current) use of anticoagulants; D50.0 Iron deficiency anemia secondary to blood loss (chronic); E11.22 Type 2 diabetes mellitus with diabetic chronic kidney disease; E11.65 Type 2 diabetes mellitus with hyperglycemia; N18.3 Chronic kidney disease, stage 3 (moderate); D63.1 Anemia in chronic kidney disease; Z79.4 Long term (current) use of insulin; I25.10 Atherosclerotic heart disease of native coronary artery without angina pectoris; D69.6 Thrombocytopenia, unspecified; E78.5 Hyperlipidemia, unspecified; Z87.440 Personal history of urinary (tract) infections; R91.1 Solitary pulmonary nodule; I44.1 Atrioventricular block, second degree; W06.XXXA Fall from bed, initial encounter; Y92.009 Unspecified place in unspecified non-institutional (private) residence as the place of occurrence of the external cause; Y99.9 Unspecified external cause status; K59.00 Constipation, unspecified; F17.210 Nicotine dependence, cigarettes, uncomplicated
CPT/HCPCS: 36415; 36416; 36430; 36600; 51701; 51702; 70450; 70486; 71045; 71046; 71250; 73030; 73060; 74230; 80048; 80053; 80202; 81001; 82607; 82728; 82746; 82803; 82947; 83540; 83550; 83605; 83735; 83880; 84100; 84145; 84484; 85014; 85018; 85025; 85610; 85651; 86140; 86850; 86900; 86901; 86923; 87040; 87070; 87077; 87081; 87186; 87205; 87804; 92526; 92610; 92611; 93005; 93010; 93308; 93321; 94640; 94660; 94667; 94668; 94760; 94762; 96365; 96368; 97110; 97116; 97163; 97166; 97530; 97535; 99285-25; G8996; G8997; G8998; J0456; J0696; J1650; J1940; J1956; J3370; J7030; J7050; P9016; P9612

== ENCOUNTER 2018-07-30 09:24 | Observation (INO) | payer MEDICARE ==
[~2018-07-30] VITALS: Ht 170.2 cm; Wt 66.7 kg
[~2018-07-30 09:24] MED LIST changes: +ACETYLCYST200 MG/1 M INH; +ALBU3IS INH; +BENZ100A PO; +FURO40 PO; +LISI5 PO; +METO25ER PO; +MULTIVITAM9 MG/15 ML PO; +Milk Of Ma400 MG/5 M PO; +SPIR25 PO; +TRAM50 PO
[2018-07-30] MEDS ORDERED: CLOP75 PO (10:23)
[2018-07-30] MEDS ORDERED: FERSU90EL (10:23)
[2018-07-30] MEDS ORDERED: Aspirin EC81 MG PO (10:23)
[2018-07-30] MEDS ORDERED: Metformin HCl500 MG PO (10:24)
[2018-07-30] MEDS ORDERED: FURO40 PO (10:24)
[2018-07-30] MEDS ORDERED: METO25ER PO (10:24)
[2018-07-30] MEDS ORDERED: LISI5 PO (10:24)
[2018-07-30] MEDS ORDERED: DOCU100 PO ×2 (10:25→14:31)
[2018-07-30] MEDS ORDERED: SPIR25 PO (10:25)
[2018-07-30] MEDS ORDERED: Pravastatin Sod80 MG PO (10:25)
[2018-07-30] MEDS ORDERED: ALBU3IS NEB (10:26)
[2018-07-30] MEDS ORDERED: ACET325 PO (10:26)
[2018-07-30] MEDS ORDERED: Tessalon200 MG PO (10:27)
[2018-07-30] MEDS ORDERED: GLYCERIN1 EACH PR (10:32)
[2018-07-30] MEDS ORDERED: ONDA8 PO ×2 (10:33)
[2018-07-30] MEDS ORDERED: Pedi-Dri 100,0060 GM TOP (10:33)
[2018-07-30] MEDS ORDERED: TRAM50 PO (10:34)
[2018-07-30 10:44] LABS: BASOPHILS ABSOLUTE AUTO 0.04 K/mm3 (0.00-0.23); BASOPHILS PERCENT AUTO 0 % (0-2); EOSINOPHILS ABSOLUTE AUTO 0.09 K/mm3 (0.00-0.68); EOSINOPHILS PERCENT AUTO 1 % (0-6); Hematocrit 35.5 % (33.0-51.0); Hemoglobin 11.4 g/dL (11.5-16.0); IMMATURE GRAN ABSOLUTE AUTO 0.07 K/mm3 (0.00-0.10); IMMATURE GRAN PERCENT AUTO 1 % (0-1); LYMPHOCYTES ABSOLUTE AUTO 0.93 K/mm3 (0.84-5.20); LYMPHOCYTES PERCENT AUTO 6 % (21-46); MONOCYTES ABSOLUTE AUTO 1.13 K/mm3 (0.16-1.47); MONOCYTES PERCENT AUTO 8 % (4-13); Mean Corpuscular HGB 32.2 pg (26.0-34.0); Mean Corpuscular HGB Conc 32.1 g/dL (31.5-36.5); Mean Corpuscular Volume 100 fL (80-100); Mean Platelet Volume 10.7 fL (9.1-12.4); NEUTROPHILS ABSOLUTE AUTO 12.53 K/mm3 (1.96-9.15); NEUTROPHILS PERCENT AUTO 85 % (41-73); Platelet Count 161 K/mm3 (150-400); RDW Coefficient Variation 14.1 % (11.7-14.2); RDW Standard Deviation 51.7 fL (35.1-46.3); Red Blood Cell Count 3.54 M/mm3 (3.80-5.20); White Blood Cell Count 14.79 K/mm3 (4.00-11.30)
[2018-07-30 11:05] LABS: Albumin, Blood 2.3 g/dL (3.4-5.0); Albumin/Globulin Ratio 0.5 (0.8-1.8); Bilirubin, Total 0.4 mg/dL (0.1-1.0); Bun/Creatinine Ratio 40.9 (12.0-20.0); Calcium, Blood 8.7 mg/dL (8.5-10.1); Creatinine, Blood 1.71 mg/dL (0.40-1.00); Globulin, Blood 4.7 g/dL (2.2-4.0); Potassium, Blood 4.2 mmol/L (3.5-5.5)
[2018-07-30 11:39] LABS: Source, Urine Catheter
[2018-07-30 11:48] LABS: Appearance, Urine Clear (Clear); Bilirubin, Urine Neg (Neg); Blood, Urine Neg (Neg); Color, Urine Yellow (P-Yellow); Glucose Qualitative, Urine Neg (Neg); Ketones, Urine Neg (Neg); Leukocyte Esterase, Urine 1+ (Neg); Nitrite, Urine Neg (Neg); Protein, Urine 2+ (Neg); Specific Gravity, Urine 1.015 (1.003-1.022); Urobilinogen, Urine NORM (Normal)
[2018-07-30 12:12] LABS: Bacteria Few /hpf; Red Blood Cells, Urine Not Seen /hpf (0-2); Squamous Epithelial Cells Mod /hpf (Few)
[2018-07-30] MEDS ORDERED: [UNRECOGNIZED DRUG - OTHER] PO (14:15)
[2018-07-30] MEDS ORDERED: ONDA4 PO (14:28)
[2018-07-30] MEDS ORDERED: PREVNAR 13 SYR0.5 ML IM (14:29)
[2018-07-30] MEDS ORDERED: PROBIOTIC1 EACH PO (14:30)
[2018-07-30] MEDS ORDERED: ONE DAILY COMP1 EACH PO (14:31)
[2018-07-30] MEDS ORDERED: ACETADOTE200 MG/1 M INH (14:33)
[2018-07-30] MEDS ORDERED: BISA10S PR (14:34)
[2018-07-30] MEDS ORDERED: Milk Of Ma400 MG/5 M PO (14:35)
--- NOTE | 2018-07-30 19:03 | NUR ---
PT. SLEEPING AT THIS TIME. ATE 50% OF HER DINNER TONIGHT. PT. IS A&O. INCONTINENT OF BLADDER AND BOWEL. PT. REPORTED TO BE CONSTIPATED SO BOWEL CARE STARTED. PT. REFUSED A SUPPOSITORY AND A FLEETS ENEMA. PT. HAS A COPY OF HER POLST IN THE FRONT OF THE CHART.
[2018-07-31 05:30] LABS: BASOPHILS ABSOLUTE AUTO 0.03 K/mm3 (0.00-0.23); BASOPHILS PERCENT AUTO 0 % (0-2); EOSINOPHILS ABSOLUTE AUTO 0.22 K/mm3 (0.00-0.68); EOSINOPHILS PERCENT AUTO 2 % (0-6); Hematocrit 31.5 % (33.0-51.0); IMMATURE GRAN ABSOLUTE AUTO 0.03 K/mm3 (0.00-0.10); IMMATURE GRAN PERCENT AUTO 0 % (0-1); LYMPHOCYTES ABSOLUTE AUTO 1.05 K/mm3 (0.84-5.20); LYMPHOCYTES PERCENT AUTO 10 % (21-46); MONOCYTES ABSOLUTE AUTO 1.04 K/mm3 (0.16-1.47); MONOCYTES PERCENT AUTO 10 % (4-13); Mean Corpuscular HGB 31.5 pg (26.0-34.0); Mean Corpuscular HGB Conc 31.7 g/dL (31.5-36.5); Mean Corpuscular Volume 99 fL (80-100); Mean Platelet Volume 10.8 fL (9.1-12.4); NEUTROPHILS ABSOLUTE AUTO 8.63 K/mm3 (1.96-9.15); NEUTROPHILS PERCENT AUTO 78 % (41-73); Platelet Count 151 K/mm3 (150-400); RDW Coefficient Variation 13.9 % (11.7-14.2); RDW Standard Deviation 50.4 fL (35.1-46.3); Red Blood Cell Count 3.17 M/mm3 (3.80-5.20)
--- NOTE | 2018-07-31 05:44 | NUR ---
URINARY RETENTION PLACED CALL TO HOSPITALIST IN REGARDS TO URINARY RETENTION, PT HAS NOT VOIDED THIS SHIFT. BLADDER SCAN 441 ML. HOSPITALIST ORDERED TO STRAIGHT CATH PRN FOR VOLUME OVER 700 ML. PT VOIDED MINUTES AFTER CALL. PVR 0 ML. WILL CONT TO MONITOR
[2018-07-31 06:02] LABS: Albumin/Globulin Ratio 0.5 (0.8-1.8); Bilirubin, Total 0.5 mg/dL (0.1-1.0); Bun/Creatinine Ratio 39.9 (12.0-20.0); Calcium, Blood 8.6 mg/dL (8.5-10.1); Creatinine, Blood 1.48 mg/dL (0.40-1.00); Globulin, Blood 4.2 g/dL (2.2-4.0); Potassium, Blood 4.7 mmol/L (3.5-5.5); Total Protein, Blood 6.2 g/dL (6.4-8.2)
--- NOTE | 2018-07-31 06:44 | NUR ---
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 PHOTOS DOCUMENTED. WOUND CARE TO PRESSURE ULCER ON COCCYX. PHOTOS DOCUMENTED WELL. PSORIASIS PATCHES SCATTERED T/O BODY, SMALL RED PEELING. PT IS A&O X 3, CALL LIGHT APPROP. NS RUNNING @ 80 ML/HR. PT DID NOT VOID T.O THE SHIFT, BLADDER SCAN 441 ML. HOSPITALIST ORDERED PRN STRAIGHT CATH FOR OVER 700 ML. SEE ORDERS. PT C/O OF ABDOMEN PAIN AND PRESSURE, BS NORMO X4. C/O OF HEADACHE. TREATED 1X c 25 MCG FENTANYL FOR PAIN. WILL CONT TO MONITOR AND PROVIDE CARE UNTIL PRESUMED BY ONCOMING RN.
--- NOTE | 2018-07-31 11:31 | NUR ---
SHE C/O FEELING CONSTIPATED THIS AM. CT YESTERDAY CONFIRMED THIS. SHE TOOK MIRALAX AND PRUNE JUICE WITH BREAKFAST. SHE THEN HOPED TO GET AN ENEMA LATER. SHE DOES NOT HAVE AN ENEMA ORDERED BUT SHE AGREED TO THE PO LAXATIVES SHE DOES HAVE ORDERED. DULCOLAX AND SENNA GIVEN. SHE ALSO RECEIVED A TRAMADOL FOR C/O ABD PAIN. HER SON PARVIZ CALLED TO CHECK ON HER AND HAS ROUNDED.
--- NOTE | 2018-07-31 18:39 | NUR ---
SHE DID NOT DISCHARGE TO [facility] TODAY BECAUSE [facility] SAYS SHE NEEDS A PT/OT EVAL BEFORE THEY WILL ACCEPT HER BACK. IN THE MEANTIME, HER IV ACCESS WAS DC'D AND NOT RESTARTED. HER FLEET ENEMA WAS GIVEN AND SHE HAD A SECOND MEDIUM SOFT BM TODAY. THE BLADDER SCAN SAID OVER 900 MLS IN HER BLADDER, BUT WHEN ST CATHED THIS EVENING, ONLY 400 MLS OBTAINED. WILL PASS ON IN REPORT TO RE-BLADDER SCAN HER THIS EVENING. I THINK THE SUPRAPUBIC FLAP OF FAT NEEDS TO BE PUSHED OUT OF THE WAY BETTER WHEN SCANNED. MAYBE IT WILL BE MORE ACCURATE. 3 MRSA CLEARANCE SWABS WERE OBTAINED. SHE TRANSFERRED WITH 2 ASSIST TO AND FROM THE BSC. SHE SAYS HER LEGS GO NUMB WHEN SHE SITS UP AND HAD NO INTEREST TODAY IN SITTING IN A CHAIR. SHE COULD NOT VOID ON THE BSC. SHE HAS HAD WET ATTENDS TODAY. O2 STILL AT 2L. NO RESP.DISTRESS.SHE HAS PSORIASIS ALL OVER INCLUDING HER BUTTOCKS.
[2018-08-01 06:09] LABS: Bun/Creatinine Ratio 38.5 (12.0-20.0); Calcium, Blood 8.5 mg/dL (8.5-10.1); Creatinine, Blood 1.17 mg/dL (0.40-1.00); Potassium, Blood 4.7 mmol/L (3.5-5.5)
--- NOTE | 2018-08-01 06:37 | NUR ---
SHIFT SUMMARY: ADMINISTERED FLEET ENEMA 1X TONIGHT PER DR HOYT ORDERS. PT TOLERATED WELL, REPORTED SOME "STINGING" AT FIRST THAT QUICKLY RESIDED. PT HAD SEVERAL LOOSE, INCONTINENT BMs T/O THE NIGHT SINCE ADMINISTERING @ 2100. TWO UNMEASURED, INCONTINENT VOIDS. BLADDER SCAN UNREMARKABLE. Q2H REPOSITIONING T/O TONIGHT. PT TO D/C BACK TO AFTER PT/OT EVAL. WILL CONT TO MONITOR AND PROVIDE CARE UNTIL PRESUMED BY ONCOMING RN.
--- NOTE | 2018-08-01 16:17 | NUR ---
SHE IS RESTING IN BED COMFORTABLY. HER SON VISITED X2 TODAY. SHE WAS EVALUATED BY PT. SHE ONLY SAT UP ABOUT 25 MIN AND INSISTED GOING BACK TO BED. WE HAVE A RECLINER CHAIR IN THE ROOM FOR HER BUT SHE WAS NOT INTERESTED AT THE TIME. [place] [facility] [place] NOW WE ARE WAITING FOR AN INSURANCE AUTHORIZATION. MRSA SWABS YESTERDAY CAME BACK POSITIVE.
--- NOTE | 2018-08-02 06:40 | NUR ---
SHIFT SUMMARY: NO ACUTE CHANGES THIS SHIFT. PT C/O OF HEADACHE AND IS ADMINISTERED ULTRAM 1X FOR THIS WITH RELIEF. DR BARROW IN THIS AM TO SEE PT. D/C ORDERS IN PLACE, AMBULANCE RIDE ARRANGED, AND REC SIGNED AND UPDATE BY DR BARROW. ON 2L VIA CO, BASELINE. CALL LIGHT APPROP. A&O X 4. WILL CONT TO MONITOR AND PROVIDE CARE UNTIL PRESUMED BY ONCOMING RN.
[2018-08-02] MEDS ORDERED: COMBIVENT RESPIM4 GM INH (09:17)
[2018-08-02] MEDS ORDERED: LINZESS145 MCG PO (09:21)
--- NOTE | 2018-08-02 11:36 | NUR ---
DISCHARGE SUMMARY PATIENT HAD NO IV ACCESS. NO ACUTE CONCERNS FROM PATIENT. REPORT CALLED TO [facility]. DISCHARGE PACKET GIVEN TO [facility] TRANSPORT. PATIENT PLACED ON OXYGEN AND SENT TO THE FACILITY.
== END 2018-08-02 11:24 ==
LOC: ER 09:24 → MEDS 09:25 → ENPENDDIS 07-31 17:01 → MEDS 08-02 11:24
PROVIDERS: Emergency Medicine; ADMIT Family Medicine
DX: N17.9 Acute kidney failure, unspecified (principal); T81.89XA Other complications of procedures, not elsewhere classified, initial encounter; S42.301A Unspecified fracture of shaft of humerus, right arm, initial encounter for closed fracture; I48.0 Paroxysmal atrial fibrillation; J44.0 Chronic obstructive pulmonary disease with (acute) lower respiratory infection; J18.9 Pneumonia, unspecified organism; K59.09 Other constipation; K56.7 Ileus, unspecified; I95.9 Hypotension, unspecified; I12.9 Hypertensive chronic kidney disease with stage 1 through stage 4 chronic kidney disease, or unspecified chronic kidney disease; E11.22 Type 2 diabetes mellitus with diabetic chronic kidney disease; N18.3 Chronic kidney disease, stage 3 (moderate); K43.9 Ventral hernia without obstruction or gangrene; R79.89 Other specified abnormal findings of blood chemistry; D62 Acute posthemorrhagic anemia; I05.9 Rheumatic mitral valve disease, unspecified; E78.5 Hyperlipidemia, unspecified; D69.6 Thrombocytopenia, unspecified; M80.00XA Age-related osteoporosis with current pathological fracture, unspecified site, initial encounter for fracture; F17.210 Nicotine dependence, cigarettes, uncomplicated; Z99.81 Dependence on supplemental oxygen; Z86.73 Personal history of transient ischemic attack (TIA), and cerebral infarction without residual deficits; Z87.440 Personal history of urinary (tract) infections; Z79.899 Other long term (current) drug therapy; Z79.82 Long term (current) use of aspirin; Z79.84 Long term (current) use of oral hypoglycemic drugs; Z79.02 Long term (current) use of antithrombotics/antiplatelets; Z88.5 Allergy status to narcotic agent; Z88.2 Allergy status to sulfonamides; Z88.1 Allergy status to other antibiotic agents
CPT/HCPCS: 36415; 71045; 74018; 74176; 80048; 80053; 81001; 82947; 85025; 87040; 87077; 87081; 87086; 87186; 93005; 93010; 96361; 96372; 96374; 96375; 96376; 97163; 97530; 99285-25; G0378; J1650; J1815; J2405; J3010; J7030; P9612

== ENCOUNTER 2018-08-20 21:52 | Emergency (ER) | payer MEDICARE ==
[~2018-08-20] VITALS: Ht 170.2 cm; Wt 69.0 kg
[~2018-08-20 21:52] MED LIST changes: +ACETADOTE200 MG/1 M INH; +ALBU3IS NEB; +Aspirin EC81 MG PO; +COMBIVENT RESPIM4 GM INH; +FERSU90EL; +GLYCERIN1 EACH PR; +Metformin HCl500 MG PO; +ONDA4 PO; +ONDA8 PO; +ONE DAILY COMP1 EACH PO; +PREVNAR 13 SYR0.5 ML IM; +PROBIOTIC1 EACH PO; +Tessalon200 MG PO; +[UNRECOGNIZED DRUG - OTHER] PO
[2018-08-21] MEDS ORDERED: Levaquin500 MG PO (00:24)
[2018-08-21] MEDS ORDERED: SIME80CH PO (18:54)
[2018-08-21] MEDS ORDERED: ONE DAILY COMP1 EACH PO (19:09)
== END 2018-08-21 01:50 | disposition home or self-care (01) ==
LOC: ER 21:52
DX: J44.0 Chronic obstructive pulmonary disease with (acute) lower respiratory infection (principal); J18.1 Lobar pneumonia, unspecified organism; I10 Essential (primary) hypertension; E11.9 Type 2 diabetes mellitus without complications; F17.210 Nicotine dependence, cigarettes, uncomplicated; Z88.2 Allergy status to sulfonamides; Z88.1 Allergy status to other antibiotic agents; Z88.5 Allergy status to narcotic agent; Z79.899 Other long term (current) drug therapy; Z79.82 Long term (current) use of aspirin; Z79.84 Long term (current) use of oral hypoglycemic drugs; Z79.02 Long term (current) use of antithrombotics/antiplatelets
CPT/HCPCS: 71046; 93005; 93010; 94640; 99285-25

== ENCOUNTER 2018-08-21 18:04 | Inpatient (IN) | payer MEDICARE ==
[~2018-08-21] VITALS: Ht 170.2 cm; Wt 67.5 kg
[~2018-08-21 18:04] MED LIST changes: +Levaquin500 MG PO
[2018-08-21] MEDS ORDERED: SIME80CH PO (18:54)
[2018-08-21] MEDS ORDERED: ONE DAILY COMP1 EACH PO (19:09)
[2018-08-21 19:40] LABS: PCO2 Arterial 30.9 mmHg (35-45); PO2 Arterial 50.7 mmHg (80-100); pH Blood Arterial 7.52 (7.35-7.45)
[2018-08-21 19:55] LABS: Calcium, Ionized (POC) 1.17 mmol/L (1.10-1.46); Chloride (POC) 104 mmol/L (98-108); Creatinine (POC) 0.9 mg/dL (0.6-1.0); Glucose (ISTAT POC) 104 mg/dL (70-99); Hemoglobin (POC) 11.2 g/dL (12.0-16.0); Potassium (POC) 3.7 mmol/L (3.5-5.5); Sodium (POC) 141 mmol/L (135-148); Total CO2 (POC) 25 mmol/L (21-32)
[2018-08-21 21:09] LABS: BASOPHILS ABSOLUTE AUTO 0.03 K/mm3 (0.00-0.23); BASOPHILS PERCENT AUTO 0 % (0-2); EOSINOPHILS ABSOLUTE AUTO 0.02 K/mm3 (0.00-0.68); EOSINOPHILS PERCENT AUTO 0 % (0-6); Hematocrit 33.3 % (33.0-51.0); Hemoglobin 10.5 g/dL (11.5-16.0); IMMATURE GRAN ABSOLUTE AUTO 0.03 K/mm3 (0.00-0.10); IMMATURE GRAN PERCENT AUTO 0 % (0-1); LYMPHOCYTES ABSOLUTE AUTO 0.71 K/mm3 (0.84-5.20); LYMPHOCYTES PERCENT AUTO 8 % (21-46); MONOCYTES ABSOLUTE AUTO 1.08 K/mm3 (0.16-1.47); MONOCYTES PERCENT AUTO 13 % (4-13); Mean Corpuscular HGB 31.8 pg (26.0-34.0); Mean Corpuscular HGB Conc 31.5 g/dL (31.5-36.5); Mean Corpuscular Volume 101 fL (80-100); Mean Platelet Volume 10.7 fL (9.1-12.4); NEUTROPHILS ABSOLUTE AUTO 6.64 K/mm3 (1.96-9.15); NEUTROPHILS PERCENT AUTO 78 % (41-73); Platelet Count 164 K/mm3 (150-400); RDW Coefficient Variation 16.3 % (11.7-14.2); RDW Standard Deviation 59.4 fL (35.1-46.3); White Blood Cell Count 8.51 K/mm3 (4.00-11.30)
[2018-08-21 21:27] LABS: Alanine Aminotransfer (ALT/SGP 16 U/L (12-78); Albumin, Blood 2.2 g/dL (3.4-5.0); Albumin/Globulin Ratio 0.5 (0.8-1.8); Alk Phos 70 U/L (50-136); Anion Gap 7 mmol/L (6-16); Aspartate Aminotrans (AST/SGOT 21 U/L (12-37); Bilirubin, Total 0.3 mg/dL (0.1-1.0); Blood Urea Nitrogen 23 mg/dL (8-24); Bun/Creatinine Ratio 25.2 (12.0-20.0); CO2, Blood 27 mmol/L (21-32); Calcium, Blood 8.5 mg/dL (8.5-10.1); Chloride, Blood 108 mmol/L (98-108); Creatinine, Blood 0.91 mg/dL (0.40-1.00); Globulin, Blood 4.2 g/dL (2.2-4.0); Glomerular Filtration Rate >60 (60-); Glucose, Blood 100 mg/dL (70-99); Magnesium, Blood 2.3 mg/dL (1.6-2.4); Potassium, Blood 3.8 mmol/L (3.5-5.5); Sodium, Blood 142 mmol/L (136-145); Total Protein, Blood 6.4 g/dL (6.4-8.2); Troponin I 0.122 ng/mL (0.000-0.040)
--- NOTE | 2018-08-21 23:15 | NUR ---
PT ARRIVAL. PT ARRIVED ON UNIT VIA GURNEY. PT WAS ADMITTED DUE TO AFIB RVR AND SOB. PT ARRIVED ON 8L OXYMIZER, PT'S RR WAS 24 EVEN BUT LABORED. PT'S HOME O2 IS 2 L NC. PT ARRIVED ON UNIT IN AFIB IN THE 120'S PER COTTON WEIGHER. PT CURRENTLY HAS A BROKEN UPPER ARM PER PT. PT ALSO HAS A STAGE 2 PRESSURE ULCER ON HER COCCXY THAT WAS PRESENT PRIOR TO ADMIT PER PT. (PICTURES IN THE CHART.) TELE WAS PLACED, PT'S BP 165/107. NO EDEMA NOTED ON ASSESSMENT. PT'S L/S WERE COARSE AND DIM T/O. BT PRESENT AND HYPERACTIVE, ABD IS SOFT AND NONTENDER TO PALP. PT HAD SMALL OPEN WOUND ON HER ABD, DRESSING WAS CHANGED. PT STATES SHE HAS HAD THIS FOR A LONG TIME AND IT IS HEALING WELL. PT ALSO HAS PSORIASIS RASH ALL OVER BODY, PT STATES THIS IS NORMAL WELL. CALL LIGHT IN REACH, BED IS LOCKED AND LOW WILL CONTINUE TO MONITOR.
[2018-08-22 01:22] LABS: Adenovirus Not Detected (NOT DETECT); Bordetella pertussis Not Detected (NOT DETECT); Chlamydophila pneumoniae Not Detected (NOT DETECT); Coronavirus 229E Not Detected (NOT DETECT); Coronavirus HKU1 Not Detected (NOT DETECT); Coronavirus NL63 Not Detected (NOT DETECT); Coronavirus OC43 Not Detected (NOT DETECT); Human Metapneumovirus Not Detected (NOT DETECT); Human Rhinovirus/Enterovirus Not Detected (NOT DETECT); Influenza A Not Detected (NOT DETECT); Influenza A/2009-H1 Not Detected (NOT DETECT); Influenza A/H1 Not Detected (NOT DETECT); Influenza A/H3 Not Detected (NOT DETECT); Influenza B Not Detected (NOT DETECT); Mycoplasma pneumoniae Not Detected (NOT DETECT); Parainfluenza Virus 1 Not Detected (NOT DETECT); Parainfluenza Virus 2 Not Detected (NOT DETECT); Parainfluenza Virus 3 Not Detected (NOT DETECT); Parainfluenza Virus 4 Not Detected (NOT DETECT); Respiratory Syncytial Virus Not Detected (NOT DETECT)
[2018-08-22 03:59] LABS: Hematocrit 31.3 % (33.0-51.0); Hemoglobin 9.9 g/dL (11.5-16.0); Mean Corpuscular HGB 31.4 pg (26.0-34.0); Mean Corpuscular HGB Conc 31.6 g/dL (31.5-36.5); Mean Corpuscular Volume 99 fL (80-100); Mean Platelet Volume 10.8 fL (9.1-12.4); Platelet Count 137 K/mm3 (150-400); RDW Coefficient Variation 16.3 % (11.7-14.2); RDW Standard Deviation 58.7 fL (35.1-46.3); Red Blood Cell Count 3.15 M/mm3 (3.80-5.20); White Blood Cell Count 6.88 K/mm3 (4.00-11.30)
[2018-08-22 04:22] LABS: Anion Gap 7 mmol/L (6-16); Blood Urea Nitrogen 23 mg/dL (8-24); Bun/Creatinine Ratio 24.1 (12.0-20.0); CO2, Blood 26 mmol/L (21-32); Calcium, Blood 8.4 mg/dL (8.5-10.1); Chloride, Blood 109 mmol/L (98-108); Creatinine, Blood 0.95 mg/dL (0.40-1.00); Glomerular Filtration Rate >60 (60-); Glucose, Blood 120 mg/dL (70-99); Potassium, Blood 3.8 mmol/L (3.5-5.5); Sodium, Blood 142 mmol/L (136-145)
--- NOTE | 2018-08-22 06:24 | NUR ---
SHIFT SUMMARY. NO ACUTE CHANGES NOTED SINCE PRIVIOUS NOTE. PT'S O2 HAS BEEN TITRATED FROM 9L OXYMIZER DOWN TO HER HOME DOSE OF 2L. PT DENIES CHEST PAIN/PRESSURE OR N/V. PT BECOMES SLIGHTLY SOB W/ACTIVITY BUT THIS HAS IMPROVED GREATLY FROM ADMIT. VS HAVE BEEN STABLE. CALL LIGHT IN REACH, BED IS LOCKED AND LOW WILL CONTINUE TO MONITOR UNTIL REPORT IS GIVEN TO ONCOMING RN.
--- NOTE | 2018-08-22 18:00 | NUR ---
TRANSFER TO MEDICAL FLOOR Assumed care of pt at 0700. Report receieved from Randa CONCEPCION. Pt on 2 LPM oxymizer at beginning of shift. Pt wears 2 LPM NC. Shift assessment completed. No acute changes t/o shift. Pt made medical floor status by Dr Thuy Hussein. Transferred to medical floor at 1541 accompanied by this RN and Lady TRUONG. Pt remained in same bed for interdepartmental transfer. Family updated of new room assignment by this RN.
--- NOTE | 2018-08-22 18:18 | NUR ---
SUMMARY PT SITTING UP IN BED EATING HER DINNER, PT TRANSFERRED UP FROM PCU, PT IS PLEASANT AND COOPERATIVE WITH CARE, PLAN TO GO BACK TO [facility] SATURDAY, VSS, NO ACUTE CHANGES, WILL CONT TO MONITOR
[2018-08-23 05:32] LABS: BASOPHILS ABSOLUTE AUTO 0.01 K/mm3 (0.00-0.23); BASOPHILS PERCENT AUTO 0 % (0-2); EOSINOPHILS ABSOLUTE AUTO 0.02 K/mm3 (0.00-0.68); EOSINOPHILS PERCENT AUTO 0 % (0-6); Hematocrit 30.4 % (33.0-51.0); Hemoglobin 9.5 g/dL (11.5-16.0); IMMATURE GRAN ABSOLUTE AUTO 0.03 K/mm3 (0.00-0.10); IMMATURE GRAN PERCENT AUTO 0 % (0-1); LYMPHOCYTES ABSOLUTE AUTO 1.22 K/mm3 (0.84-5.20); LYMPHOCYTES PERCENT AUTO 12 % (21-46); MONOCYTES ABSOLUTE AUTO 1.13 K/mm3 (0.16-1.47); MONOCYTES PERCENT AUTO 11 % (4-13); Mean Corpuscular HGB 31.4 pg (26.0-34.0); Mean Corpuscular HGB Conc 31.3 g/dL (31.5-36.5); Mean Corpuscular Volume 100 fL (80-100); Mean Platelet Volume 10.6 fL (9.1-12.4); NEUTROPHILS ABSOLUTE AUTO 7.54 K/mm3 (1.96-9.15); NEUTROPHILS PERCENT AUTO 76 % (41-73); Platelet Count 159 K/mm3 (150-400); RDW Coefficient Variation 16.6 % (11.7-14.2); RDW Standard Deviation 61.2 fL (35.1-46.3); Red Blood Cell Count 3.03 M/mm3 (3.80-5.20); White Blood Cell Count 9.95 K/mm3 (4.00-11.30)
[2018-08-23 06:39] LABS: Anion Gap 7 mmol/L (6-16); Blood Urea Nitrogen 33 mg/dL (8-24); CO2, Blood 26 mmol/L (21-32); Calcium, Blood 8.3 mg/dL (8.5-10.1); Chloride, Blood 110 mmol/L (98-108); Creatinine, Blood 1.03 mg/dL (0.40-1.00); Glomerular Filtration Rate 55 (60-); Glucose, Blood 88 mg/dL (70-99); Potassium, Blood 3.9 mmol/L (3.5-5.5); Sodium, Blood 143 mmol/L (136-145)
--- NOTE | 2018-08-23 07:28 | NUR ---
SHIFT SUMMARY: NO NEW CHANGES TO REPORT THIS SHIFT. A&O X 4, BEDBOUND AT BASELINE; Q2H TURNS. TELE IN PLACE; SINUS TACH c PACs @ 122 bpm. PT BACK TO BASELINE 02 @ 3L VIA NC; TOLERATING WELL; O2 SATS >95%. DENIES SOB. NO COV INDICATED FOR INSULIN TONIGHT. PT C/O ANXIETY AND INABILITY TO SLEEP; NO NEW ORDERS RECIEVED. WILL CONT TO MONITOR AND PROVIDE CARE UNTIL PRESUMED BY ONCOMING RN.
--- NOTE | 2018-08-23 17:33 | NUR ---
Initial Visit: Palliative Care Consult for adavanced care planning. Pt is A&O and denies pain at this time. Family present during visit. Pt reports dyspnea with exertion with the oxygen and breathing treatments being beneficial. She reports intermitent anxiety that worsens with SOB. Pt reports that she believes in God but does not practice any particular nondenominational. She reports that her has significant health issues but is recovery well. He has secured an apartment at [facility] for both of them to live. She reports being able to ambulate with FWW and standbye assist at baseline but is currently unable to do this. She reports that [facility] have caregiver's her and her can hire for extra support. Her goal at this time is to manage her anxiety. She also reports that she would like to talk with the Dr about why she is becoming fluid overloaded. Educated Pt and family on disease process and suggested to have further conversation when Dr Hussein makes his next rounds. Pt also reports increased dyspnea episodes that seem to be occuring more frequently before this hospital stay. Educated Pt on disease process of COPD as well. Encouraged Pt to have discussion with her PCP about her COPD progression. Pt reports current POLST on file is still her wishes. POLST states comfort measures only. Pt reports no other concerns at this time. Spoke with Pt's nurse Shwetha and is agreeable for this RN to request lorazepam for anxiety. Spoke with night hospitalist Cayden Cooper and requested Ativan for anxiety. He reports preference for request to be made to Dr Hussein. Plan: Request Ativan from Dr Hussein in the AM and to discuss disease process and hospice appropriateness with him. Will remain available for symptom management.
--- NOTE | 2018-08-23 18:28 | NUR ---
SHIFT SUMMARY PT A&OX4. ANXIOUS AT TIMES, COOPERATIVE WITH CARE. PT RESTING IN BED, REPOSITION PT FOR COMFORT. PT SOB AT REST THIS AM, STARTED SHIFT WITH 3L O2 VIA NC. PT REPORTS SOB AND O2 SATURATIONS INLOW 80'S, TITRATED PT TO 6L O2 VIA NC, >90% ON 6L. LS WHEEZING T/O, PT RECEIVING BREATHING TREATMENT PER RT. PT RECEIVING IV LASIX, DOSE INCREASED THIS EVENING. PT RECEIVING IV ANTIBIOTICS. PT REPORTS RIGHT ARM/SHOULDER BROKEN, REPORTS PAIN, MEDICATED X1 WITH TYLENOL WITH POSITIVE RESULTS. OTHER VSS. NO OTHER ACUTE CHANGES NOTED DURING SHIFT. WILL CONTINUE TO MONITOR UNTIL REPORT GIVEN TO ONCOMING RN.
[2018-08-24 05:35] LABS: Hematocrit 32.9 % (33.0-51.0); Hemoglobin 10.3 g/dL (11.5-16.0); Mean Corpuscular HGB 31.6 pg (26.0-34.0); Mean Corpuscular HGB Conc 31.3 g/dL (31.5-36.5); Mean Corpuscular Volume 101 fL (80-100); Mean Platelet Volume 10.4 fL (9.1-12.4); Platelet Count 157 K/mm3 (150-400); RDW Coefficient Variation 16.7 % (11.7-14.2); RDW Standard Deviation 61.8 fL (35.1-46.3); Red Blood Cell Count 3.26 M/mm3 (3.80-5.20); White Blood Cell Count 7.68 K/mm3 (4.00-11.30)
[2018-08-24 06:19] LABS: Albumin, Blood 2.1 g/dL (3.4-5.0); Anion Gap 8 mmol/L (6-16); Blood Urea Nitrogen 35 mg/dL (8-24); Bun/Creatinine Ratio 32.7 (12.0-20.0); CO2, Blood 28 mmol/L (21-32); Calcium, Blood 8.4 mg/dL (8.5-10.1); Chloride, Blood 107 mmol/L (98-108); Creatinine, Blood 1.07 mg/dL (0.40-1.00); Glomerular Filtration Rate 53 (60-); Glucose, Blood 82 mg/dL (70-99); Phosphorus, Blood 3.9 mg/dL (2.5-4.9); Potassium, Blood 3.8 mmol/L (3.5-5.5); Sodium, Blood 143 mmol/L (136-145)
--- NOTE | 2018-08-24 06:39 | NUR ---
SHIFT SUMMARY: NO ACUTE CHANGES TO REPORT. PT TITRATED DOWN TO 4L VIA NC THIS AM. TREATED 2X FOR R ARM PAIN c TYLENOL. PT C/O ANXIETY AND INABILITY TO SLEEP. VSS. TELE IN PLACE; SINUS TACH PVCs @ 122 BPM. NO OTHER CHANGES TO REPORT. WILL CONT TO MONITOR AND PROVIDE CARE UNTIL PRESUMED BY ONCOMING RN.
--- NOTE | 2018-08-24 12:14 | NUR ---
Pt visit this afternoon. Pt denies pain at this time. She reports 4/7 anxiety and mild dyspnea. Pt reports that she is feeling better than yesterday but still feels a little SOB. Pt inquired about anxiety medications. Instructed Pt that Dr Lowery consulted with Dr Hussein and will consider ordering anxiety meds. Pt reports no other concerns at this time. Will remain available.
--- NOTE | 2018-08-24 20:09 | NUR ---
SHIFT SUMMARY PT A&OX3. CALM AND COOPERATIVE WITH CARE. ANXIOUS AT TIMES, MEDICATED WITH ATIVAN X1. PT RESTING IN BED T/O SHIFT, REPOSITIONED FOR COMFORT. PT REPROTS PAIN IN RIGHT ARM, MEDICATED X1 WITH TYLENOL, WITH POSITIVE RESULTS. PT SOB WITH EXERTION, >90% ON 4.5L O2 VIA NC, LS DIM. PT RECEIVING BREATHIGN TREATMENTS PER RT. PT DENIES N/V. PT RECEIVING IV ANTIBIOTICS AND IV LASIX. HR ELEVATED, TRENDING DOWN. OTHER VSS. NO OTHER ACUTE CHANGES NOTED. REPORT GIVEN TO ONCOMING RN.
[2018-08-24 22:12] LABS: Source, Urine Catheter
[2018-08-24 22:15] LABS: Bilirubin, Urine Neg (Neg); Blood, Urine 1+ (Neg); Glucose Qualitative, Urine Neg (Neg); Ketones, Urine Neg (Neg); Leukocyte Esterase, Urine 1+ (Neg); Nitrite, Urine Neg (Neg); Protein, Urine 2+ (Neg); Specific Gravity, Urine 1.005 (1.003-1.022); Urobilinogen, Urine NORM (Normal)
[2018-08-24 22:31] LABS: Appearance, Urine Hazy (Clear); Bacteria Few /hpf; Color, Urine Yellow (P-Yellow); Red Blood Cells, Urine 0-2 /hpf (0-2); Squamous Epithelial Cells Many /hpf (Few)
--- NOTE | 2018-08-25 04:25 | NUR ---
SHIFT SUMMARY NO ACUTE CHANGES DURING THE NIGHT, PT SLEPT WELL. MEPILEX ON COCCYX CHANGED AND DRESSING ON ABDOMEN ALSO CHANGED. URINE SPECIMEN OBTAINED AND SENT TO LAB. PT CHANGED AND REPOSITIONED EVERY 2 HOURS. TYLENOL GIVEN FOR PAIN DURING THE NIGHT FOR ARM AND LEG PAIN. WILL CONTINUE TO MONITOR.
[2018-08-25 05:59] LABS: BASOPHILS ABSOLUTE AUTO 0.03 K/mm3 (0.00-0.23); BASOPHILS PERCENT AUTO 0 % (0-2); EOSINOPHILS ABSOLUTE AUTO 0.33 K/mm3 (0.00-0.68); EOSINOPHILS PERCENT AUTO 4 % (0-6); Hematocrit 33.3 % (33.0-51.0); Hemoglobin 10.6 g/dL (11.5-16.0); IMMATURE GRAN ABSOLUTE AUTO 0.02 K/mm3 (0.00-0.10); IMMATURE GRAN PERCENT AUTO 0 % (0-1); LYMPHOCYTES ABSOLUTE AUTO 1.03 K/mm3 (0.84-5.20); LYMPHOCYTES PERCENT AUTO 13 % (21-46); MONOCYTES ABSOLUTE AUTO 0.97 K/mm3 (0.16-1.47); MONOCYTES PERCENT AUTO 12 % (4-13); Mean Corpuscular HGB 31.8 pg (26.0-34.0); Mean Corpuscular HGB Conc 31.8 g/dL (31.5-36.5); Mean Corpuscular Volume 100 fL (80-100); Mean Platelet Volume 10.2 fL (9.1-12.4); NEUTROPHILS ABSOLUTE AUTO 5.58 K/mm3 (1.96-9.15); NEUTROPHILS PERCENT AUTO 70 % (41-73); Platelet Count 150 K/mm3 (150-400); RDW Coefficient Variation 16.1 % (11.7-14.2); RDW Standard Deviation 58.6 fL (35.1-46.3); Red Blood Cell Count 3.33 M/mm3 (3.80-5.20); White Blood Cell Count 7.96 K/mm3 (4.00-11.30)
[2018-08-25 06:18] LABS: Anion Gap 7 mmol/L (6-16); Blood Urea Nitrogen 41 mg/dL (8-24); Bun/Creatinine Ratio 32.3 (12.0-20.0); CO2, Blood 30 mmol/L (21-32); Calcium, Blood 8.4 mg/dL (8.5-10.1); Chloride, Blood 104 mmol/L (98-108); Creatinine, Blood 1.27 mg/dL (0.40-1.00); Glomerular Filtration Rate 44 (60-); Glucose, Blood 92 mg/dL (70-99); Potassium, Blood 4.3 mmol/L (3.5-5.5); Sodium, Blood 141 mmol/L (136-145); Troponin I 0.058 ng/mL (0.000-0.040)
--- NOTE | 2018-08-25 11:21 | NUR ---
LEVAQUIN 500MG IV ADMINISTERED TO PATIENT THIS AM IN ERROR. DR HOYT NOTIFIED. WILL CONTINUE TO MONITOR PT.
--- NOTE | 2018-08-25 17:24 | NUR ---
PER MARIA E, ELECTRICAL DESIGNER DRAFTER FOR [place], PT IS AWAITING DISCHARGE TO SNF, PENDING INSURANCE APPROVAL. WILL CONTINUE TO MONITOR.
--- NOTE | 2018-08-25 19:37 | NUR ---
SHIFT SUMMARY PT A&OX3, CALM AND COOPERATIVE WITH CARE. ANXIOUS AT TIMES, MEDICATED x1 WITH ATIVAN WITH POSITIVE RESULTS. SOB WITH EXERTION, PT ON 4.5L O2 VIA NC, O2 SATURATIONS >90%. PT REPORTS PAIN IN RIGHT SHOULDS AND BLE, MEDICATED X1 WITH TYLENOL, WITH POSITIVE RESULTS. PT DENIES N/V DURING SHIFT. PT RESTING IN BED, 1 PERSON ASSIST WITH REPOSITIONING. PT RECEIVING IV ANTIBIOTICS AND IV LASIX. PT RECEIVED IV LEVAQUIN AN ERROR THIS MD VIKTORIYA NOTIFIED. PLANS TO DISCHARGE PT TO SNF, PENDING INSURANCE APPROVAL. VSS. NO OTHER ACUTE CHANGES NOTED DURING SHIFT. REPORT GIVEN TO ONCOMING RN.
--- NOTE | 2018-08-26 07:36 | NUR ---
08/26/18 0600 AWAKENED FOR AM VITALS. DENIES ANY HEADACHE THIS MORNING. SLEPT WELL. REPOSITIONED Q 2 HOURS WITH PILLOWS. RT ARM TENDER TO TOUCH DUE TO OLD FX.
--- NOTE | 2018-08-26 12:12 | NUR ---
DISCHARGE DISCHARGE MEDICATIONS AND INSTRUCTIONS PACKET SENT WITH PATIENT. PATIENT TRANSPORT VIA WHEELCHAIR TRANSPORT TO [facility]. IV REMOVED WITHOUT DIFFICULTY. BELONGINGS WITH PATIENT. REPORT CALLED TO [facility] NURSE.
== END 2018-08-26 11:53 | DRG 291 ==
LOC: ER 18:04 → PCU 21:25 → ER 22:49 → PCU 22:56 → MEDS 08-22 15:42 → ENPENDDIS 08-26 10:30 → MEDS 08-26 11:53
PROVIDERS: Emergency Medicine; Family Medicine; Nurse Practitioner Acute Care; ADMIT Internal Medicine
DX: I13.0 Hypertensive heart and chronic kidney disease with heart failure and stage 1 through stage 4 chronic kidney disease, or unspecified chronic kidney disease (principal); J18.9 Pneumonia, unspecified organism; I50.33 Acute on chronic diastolic (congestive) heart failure; J96.01 Acute respiratory failure with hypoxia; J44.0 Chronic obstructive pulmonary disease with (acute) lower respiratory infection; M80.00XA Age-related osteoporosis with current pathological fracture, unspecified site, initial encounter for fracture; J44.1 Chronic obstructive pulmonary disease with (acute) exacerbation; Z51.5 Encounter for palliative care; Z79.01 Long term (current) use of anticoagulants; E11.22 Type 2 diabetes mellitus with diabetic chronic kidney disease; N18.3 Chronic kidney disease, stage 3 (moderate); Z87.310 Personal history of (healed) osteoporosis fracture; D63.1 Anemia in chronic kidney disease; Z99.81 Dependence on supplemental oxygen; I71.4 Abdominal aortic aneurysm, without rupture; Z86.73 Personal history of transient ischemic attack (TIA), and cerebral infarction without residual deficits; I48.0 Paroxysmal atrial fibrillation; E78.5 Hyperlipidemia, unspecified; D69.6 Thrombocytopenia, unspecified; L40.9 Psoriasis, unspecified; Z87.440 Personal history of urinary (tract) infections; F17.210 Nicotine dependence, cigarettes, uncomplicated; I25.10 Atherosclerotic heart disease of native coronary artery without angina pectoris; Z79.82 Long term (current) use of aspirin
CPT/HCPCS: 36415; 36600; 80047; 80048; 80053; 80069; 81001; 82803; 82947; 83605; 83735; 83880; 84145; 84443; 84484; 85014; 85025; 85027; 87086; 87486; 87581; 87633; 87798; 93005; 93010; 94010; 94640; 94664; 94667; 94760; 96374; 96375; 97110; 97162; 97530; 98960; 99285-25; 99407; J0696; J1940; J1956; J2060; J2930; J7050

== ENCOUNTER 2018-10-30 11:39 | Emergency (ER) | payer MEDICARE ==
[~2018-10-30] VITALS: Ht 170.2 cm; Wt 69.0 kg
[~2018-10-30 11:39] MED LIST changes: -PROBIOTIC1 EACH PO; +SIME80CH PO
[2018-10-30 12:13] LABS: BASOPHILS ABSOLUTE AUTO 0.05 K/mm3 (0.00-0.23); BASOPHILS PERCENT AUTO 1 % (0-2); EOSINOPHILS ABSOLUTE AUTO 0.23 K/mm3 (0.00-0.68); EOSINOPHILS PERCENT AUTO 2 % (0-6); Hematocrit 35.1 % (33.0-51.0); IMMATURE GRAN ABSOLUTE AUTO 0.03 K/mm3 (0.00-0.10); IMMATURE GRAN PERCENT AUTO 0 % (0-1); LYMPHOCYTES ABSOLUTE AUTO 0.67 K/mm3 (0.84-5.20); LYMPHOCYTES PERCENT AUTO 7 % (21-46); MONOCYTES ABSOLUTE AUTO 0.95 K/mm3 (0.16-1.47); MONOCYTES PERCENT AUTO 10 % (4-13); Mean Corpuscular HGB 31.5 pg (26.0-34.0); Mean Corpuscular HGB Conc 31.3 g/dL (31.5-36.5); Mean Corpuscular Volume 101 fL (80-100); Mean Platelet Volume 10.3 fL (9.1-12.4); NEUTROPHILS ABSOLUTE AUTO 8.11 K/mm3 (1.96-9.15); NEUTROPHILS PERCENT AUTO 81 % (41-73); Platelet Count 219 K/mm3 (150-400); RDW Coefficient Variation 15.2 % (11.7-14.2); RDW Standard Deviation 56.1 fL (35.1-46.3); Red Blood Cell Count 3.49 M/mm3 (3.80-5.20); White Blood Cell Count 10.04 K/mm3 (4.00-11.30)
[2018-10-30 12:40] LABS: Alanine Aminotransfer (ALT/SGP 11 U/L (12-78); Albumin, Blood 2.1 g/dL (3.4-5.0); Albumin/Globulin Ratio 0.4 (0.8-1.8); Alk Phos 75 U/L (50-136); Anion Gap 8 mmol/L (6-16); Aspartate Aminotrans (AST/SGOT 16 U/L (12-37); Bilirubin, Total 0.5 mg/dL (0.1-1.0); Blood Urea Nitrogen 41 mg/dL (8-24); Bun/Creatinine Ratio 33.6 (12.0-20.0); CO2, Blood 21 mmol/L (21-32); Calcium, Blood 8.5 mg/dL (8.5-10.1); Chloride, Blood 109 mmol/L (98-108); Creatinine, Blood 1.22 mg/dL (0.40-1.00); Globulin, Blood 4.9 g/dL (2.2-4.0); Glomerular Filtration Rate 46 (60-); Glucose, Blood 89 mg/dL (70-99); Potassium, Blood 4.4 mmol/L (3.5-5.5); Sodium, Blood 138 mmol/L (136-145); Troponin I <0.015 ng/mL (0.000-0.040)
[2018-10-30] MEDS ORDERED: FURO20 PO (14:41)
[2018-10-30] MEDS ORDERED: POTCHL10ER PO (14:41)
[2018-10-30] MEDS ORDERED: Clobetasol Emol15 GM TOP (14:42)
[2018-10-30] MEDS ORDERED: LISI20 PO (14:42)
[2018-10-30] MEDS ORDERED: LEVFLO500 PO (15:14)
[2018-10-30] MEDS ORDERED: Prednisone20 MG PO (15:14)
== END 2018-10-30 16:27 | disposition home or self-care (01) ==
LOC: ER 11:39
PROVIDERS: Emergency Medicine
DX: J44.9 Chronic obstructive pulmonary disease, unspecified (principal); E11.22 Type 2 diabetes mellitus with diabetic chronic kidney disease; I12.9 Hypertensive chronic kidney disease with stage 1 through stage 4 chronic kidney disease, or unspecified chronic kidney disease; N18.9 Chronic kidney disease, unspecified; D63.1 Anemia in chronic kidney disease; I48.0 Paroxysmal atrial fibrillation; Z99.81 Dependence on supplemental oxygen; Z88.2 Allergy status to sulfonamides; Z88.1 Allergy status to other antibiotic agents; Z88.5 Allergy status to narcotic agent; Z79.82 Long term (current) use of aspirin; Z79.899 Other long term (current) drug therapy
CPT/HCPCS: 71046; 71250; 80053; 84484; 85025; 93005; 93010; 99285-25

== ENCOUNTER 2018-11-03 11:33 | Inpatient (IN) | payer MEDICARE ==
[~2018-11-03] VITALS: Ht 165.1 cm; Wt 69.0 kg
[~2018-11-03 11:33] MED LIST changes: +Clobetasol Emol15 GM TOP; +FURO20 PO; +LISI20 PO; +POTCHL10ER PO; +Prednisone20 MG PO
[2018-11-03 12:10] LABS: BASOPHILS PERCENT AUTO 0 % (0-2); EOSINOPHILS PERCENT AUTO 0 % (0-6); Hematocrit 33.9 % (33.0-51.0); Hemoglobin 10.9 g/dL (11.5-16.0); IMMATURE GRAN ABSOLUTE AUTO 0.03 K/mm3 (0.00-0.10); IMMATURE GRAN PERCENT AUTO 0 % (0-1); LYMPHOCYTES ABSOLUTE AUTO 0.24 K/mm3 (0.84-5.20); LYMPHOCYTES PERCENT AUTO 3 % (21-46); MONOCYTES ABSOLUTE AUTO 0.15 K/mm3 (0.16-1.47); MONOCYTES PERCENT AUTO 2 % (4-13); Mean Corpuscular HGB 31.3 pg (26.0-34.0); Mean Corpuscular HGB Conc 32.2 g/dL (31.5-36.5); Mean Platelet Volume 10.9 fL (9.1-12.4); NEUTROPHILS ABSOLUTE AUTO 7.71 K/mm3 (1.96-9.15); NEUTROPHILS PERCENT AUTO 95 % (41-73); Platelet Count 234 K/mm3 (150-400); RDW Coefficient Variation 15.6 % (11.7-14.2); RDW Standard Deviation 52.7 fL (35.1-46.3); Red Blood Cell Count 3.48 M/mm3 (3.80-5.20); White Blood Cell Count 8.13 K/mm3 (4.00-11.30)
[2018-11-03 12:16] LABS: Mean Corpuscular Volume 97 fL (80-100)
[2018-11-03 13:13] LABS: Albumin, Blood 2.3 g/dL (3.4-5.0); Albumin/Globulin Ratio 0.5 (0.8-1.8); Bilirubin, Total 0.4 mg/dL (0.1-1.0); Bun/Creatinine Ratio 37.1 (12.0-20.0); Calcium, Blood 8.9 mg/dL (8.5-10.1); Creatinine, Blood 1.32 mg/dL (0.40-1.00); Globulin, Blood 4.3 g/dL (2.2-4.0); Potassium, Blood 4.1 mmol/L (3.5-5.5); Total Protein, Blood 6.6 g/dL (6.4-8.2)
[2018-11-03] MEDS ORDERED: CLOP75 PO (15:03)
[2018-11-03] MEDS ORDERED: METO25ER PO (15:04)
[2018-11-03] MEDS ORDERED: PROBIOTIC1 EACH PO (15:05)
[2018-11-03] MEDS ORDERED: DOC250 PO (15:05)
[2018-11-03] MEDS ORDERED: ASCO500 PO (15:06)
--- NOTE | 2018-11-03 16:41 | NUR ---
pt arrived to unit at 6111
--- NOTE | 2018-11-03 19:24 | NUR ---
PT IS IN ROOM WITH FAMILY. COMPLAINS OF RIGHT SCIATIC PAIN, TREATED PER EMAR. REPORT GIVEN TO ONCOMING NURSE
--- NOTE | 2018-11-04 01:06 | NUR ---
0106: NEW ORDERS FROM DR. COLEY FOR NYSTATIN CREAM TO PANNUS AND GROIN FOLDS. PICTURES TAKEN AND SKIN DOCUMENTED WITH PT'S PERMISSION. LARGE AREA APPEARS RED, PT C/O MILD ITCHING, NO OPEN AREAS NOTED.
[2018-11-04 04:20] LABS: BASOPHILS PERCENT AUTO 0 % (0-2); EOSINOPHILS PERCENT AUTO 0 % (0-6); Hematocrit 32.4 % (33.0-51.0); Hemoglobin 10.4 g/dL (11.5-16.0); IMMATURE GRAN ABSOLUTE AUTO 0.03 K/mm3 (0.00-0.10); IMMATURE GRAN PERCENT AUTO 0 % (0-1); LYMPHOCYTES ABSOLUTE AUTO 0.32 K/mm3 (0.84-5.20); LYMPHOCYTES PERCENT AUTO 4 % (21-46); MONOCYTES ABSOLUTE AUTO 0.19 K/mm3 (0.16-1.47); MONOCYTES PERCENT AUTO 3 % (4-13); Mean Corpuscular HGB Conc 32.1 g/dL (31.5-36.5); Mean Corpuscular Volume 97 fL (80-100); Mean Platelet Volume 10.5 fL (9.1-12.4); NEUTROPHILS ABSOLUTE AUTO 6.92 K/mm3 (1.96-9.15); NEUTROPHILS PERCENT AUTO 93 % (41-73); Platelet Count 196 K/mm3 (150-400); RDW Coefficient Variation 15.3 % (11.7-14.2); RDW Standard Deviation 54.3 fL (35.1-46.3); Red Blood Cell Count 3.35 M/mm3 (3.80-5.20); White Blood Cell Count 7.46 K/mm3 (4.00-11.30)
[2018-11-04 04:41] LABS: Albumin, Blood 2.3 g/dL (3.4-5.0); Albumin/Globulin Ratio 0.5 (0.8-1.8); Bilirubin, Total 0.6 mg/dL (0.1-1.0); Bun/Creatinine Ratio 42.2 (12.0-20.0); Calcium, Blood 9.2 mg/dL (8.5-10.1); Creatinine, Blood 1.28 mg/dL (0.40-1.00); Globulin, Blood 4.3 g/dL (2.2-4.0); Potassium, Blood 4.3 mmol/L (3.5-5.5); Total Protein, Blood 6.6 g/dL (6.4-8.2)
--- NOTE | 2018-11-04 06:43 | NUR ---
SUMMARY: NEW ADMIT COPD EXACERBATION WITH PNEUMONIA ON [employer]. VSS, AFEBRILE, MAINTAINS SPO2 >90% ON 2L O2 HOME FLOW RATE. PT REMAINS A&O WITH GOOD BED MOBILITY BUT BECOMES SOB WITH EXERTION AND SITTING UP TO SIDE OF BED BUT RECOVERS QUICKLY. MEDICATED WITH 1 TAB NORCO X2 THIS SHIFT FOR SCIATICA PAIN CONTROL. ANTICIPATE CONTINUED STEROID USE AND MAITAIN SPO2 >90%.
--- NOTE | 2018-11-04 15:52 | NUR ---
SHIFT SUMMARY NO ACUTE CHANGES. PATIENT MEDICATED X3 FOR PAIN THIS SHIFT. DENEIS NAUSEA OR SHORTNESS OF BREATH. WORKED WITH PT TODAY. DECLINED TO GET OUT OF BED FOR FEAR OF INCREASING SCIATICA PAIN. NAPPED IN AFTERNOON, REPOSITIONED FOR COMFORT. CALL LIGHT IN REACH, WILL CONTINUE TO MONITOR.
--- NOTE | 2018-11-05 04:42 | NUR ---
Shift summary: Pt has slept well overnight. Pt given norco x 2 during night for adequate pain relief for her sciatic pain. Pt incontinent of urine x 2 - pt cleaned up. Blood sugar at hs was 184.
[2018-11-05 04:56] LABS: BASOPHILS PERCENT AUTO 0 % (0-2); EOSINOPHILS PERCENT AUTO 0 % (0-6); Hematocrit 31.7 % (33.0-51.0); IMMATURE GRAN ABSOLUTE AUTO 0.05 K/mm3 (0.00-0.10); IMMATURE GRAN PERCENT AUTO 1 % (0-1); LYMPHOCYTES ABSOLUTE AUTO 0.37 K/mm3 (0.84-5.20); LYMPHOCYTES PERCENT AUTO 4 % (21-46); MONOCYTES ABSOLUTE AUTO 0.39 K/mm3 (0.16-1.47); MONOCYTES PERCENT AUTO 4 % (4-13); Mean Corpuscular HGB Conc 31.5 g/dL (31.5-36.5); Mean Corpuscular Volume 98 fL (80-100); Mean Platelet Volume 10.3 fL (9.1-12.4); NEUTROPHILS ABSOLUTE AUTO 9.73 K/mm3 (1.96-9.15); NEUTROPHILS PERCENT AUTO 92 % (41-73); Platelet Count 197 K/mm3 (150-400); RDW Coefficient Variation 15.1 % (11.7-14.2); RDW Standard Deviation 54.4 fL (35.1-46.3); Red Blood Cell Count 3.23 M/mm3 (3.80-5.20); White Blood Cell Count 10.54 K/mm3 (4.00-11.30)
--- NOTE | 2018-11-05 06:31 | NUR ---
dr Chin saying PT status is not chowing up in PT keeper. DC ER decision to admit and INPT status showing in [facility]
--- NOTE | 2018-11-05 13:00 | NUR ---
Spiritual care visit conducted. Upon receiving a spiritual care request I visited patient. Patient stated that she recently was administred a "pain pill" and that she is incredibly sleepy. I made my visit brief but patient asked for prayer which I gladly provided. Patient responded well and voiced appreciation for the visit.
--- NOTE | 2018-11-05 18:37 | NUR ---
SHIFT SUMMARY NO ACUTE CHANGES THIS SHIFT. MEDICATED FOR PAIN X2 THIS SHIFT. PT TRIED WORKING WITH PHYSICAL THERAPY TODAY. WILL CONTINUE TO MONITOR AND REPORT TO ONCOMING RN.
--- NOTE | 2018-11-06 04:57 | NUR ---
Shift summary: Pt medicated x 2 last pm with norco for sciatic pain with adequate relief. Pt incontinent of urine - changed x 2 during night. No changes in condition. VSS.
--- NOTE | 2018-11-06 10:33 | NUR ---
SHE HAS EATEN A GOOD BREAKFAST, RESTED AND WORKED WITH OT. SHE STOOD AND MARCHED IN PLACE. HER PAIN LEVEL WAS A 3 AFTER EARLY AM PAIN PILLS. ATTENDS WERE CHANGED FOR LARGE AMT OF URINE. SHE SAYS SHE WOULD LIKE BOWEL CARE TODAY. I'LL START HER WITH DOCUSATE AND SHE HAS A SUPP ORDERED FOR HS PRN. O2 2L. NO RESPIRATORY DISTRESS.
--- NOTE | 2018-11-06 10:51 | NUR ---
TEDS PUT ON BOTH LEGS THIS MORNING AT BREAKFAST TIME.
--- NOTE | 2018-11-06 15:13 | NUR ---
STOOL SOFTNER GIVEN. SHE HAS BEEN CHANGED 3 OR 4 TIMES SO FAR TODAY FOR LARGE AMTS OF URINE. SHE DOESN'T TELL US SHE IS WET EVEN THOUGH SHE IS ORIENTED. SHE WAS NOT MEDICATED PRIOR TO PHYSICAL THERAPY SO SAID HER PAIN WAS SO HORRIBLE SHE COULD NOT SIT UP IN THE CHAIR. BY THE TIME WE GOT HER BACK TO BED WITH 2 ASSIST, SHE HAD BEEN IN THE CHAIR MAX OF 15 MIN. HER PAIN WAS EXCRUCIATING. HER PAIN NOW IS A 3. THE NORCO IS VERY EFFECTIVE. SHE SAYS SHE WANTS HER NORCO Q4HRS ATC.
--- NOTE | 2018-11-06 18:47 | NUR ---
SHE WANTS HER NORCO Q4 HRS ATC. SHE ONLY SAT UP IN THE CHAIR FOR 15 MIN TODAY BECAUSE THE PAIN WAS SO GREAT. IT HAD BEEN 6 HRS SINCE HER MOST RECENT NORCO DOSE. SHE REMAINS INCONTINENT OF URINE. PRN STOOL SOFTNER GIVEN. SHE WANTS A SUPP TONIGHT FOR CONSTIPATION. PSORIASIS RASH IS MANY PLACES ON HER BODY AND SOME YEAST RASH IN ABD FOLD AND ROBERT AREA. TEDS ON BILATERALLY. WILL HAVE A BMP IN THE AM. NO LABS TODAY.
--- NOTE | 2018-11-07 05:57 | NUR ---
SHIFT SUMMARY PATIENT IS ALERT AND ORIENTED WITH SOME CONFUSION. PATIENT IS INCONTINENT AT NIGHT. PATIENT COMPLAINED OF PAIN IN RIGHT LEG AND WAS MEDICATED ORDERED. PATIENT STILL HAS NOT HAD A BOWEL MOVEMENT. EDUCATED PATIENT THAT IT WAS IMPORTANT TO TRY AND USE BSC TODAY TO ALLOW GRAVITY TO HELP MOVE HER BOWELS. PATIENT STATES SHE DOES NOT FEEL SHE CAN DO THIS. PT SLEPT WELL THROUGHOUT THE NIGHT.
[2018-11-07 05:59] LABS: Bun/Creatinine Ratio 66.9 (12.0-20.0); Calcium, Blood 8.9 mg/dL (8.5-10.1); Creatinine, Blood 1.45 mg/dL (0.40-1.00); Potassium, Blood 4.2 mmol/L (3.5-5.5)
--- NOTE | 2018-11-07 11:36 | NUR ---
PT REQUESTED PAIN MEDICATION FROM FLIGHT TEST MECHANIC, FLIGHT TEST MECHANIC NOTIFIED NURSE. WHEN NURSE ENTERED TO ASSESS PT PAIN AT 1135 PT WAS SLEEPING COMFORTABLY. NURSE WILL REASSESS PT PAIN WHEN PT WAKES.
--- NOTE | 2018-11-07 12:31 | NUR ---
PT CALLS NURSE IN TO ROOM AT 1230 AND STATES THAT SHE "DOESNT FEEL REAL WELL." WHEN NURSE ASKED TO HER DESCIBE THAT MORE, SHE SAID SHE FEELS NAUSEATED BUT REFUSES MEDICATION PER EMAR. AT 1141 PT WAS 91% ON 2L THOUGH SHE WAS BREATHING THROUGH HER MOUTH WHILE ASLEEP. AT 1143 NURSE CALLED RESPIRATORY THERAPY, SEE NOTE. PT MEDICATED FOR PAIN AT 1153. PT CONTINUES TO REFUSE OOB DESPITE EDUCATION ABOUT RISKS ASSOCIATED WITH STAYING IN BED AND BENEFITS TO MOBILITY. PT STATES THAT SHE PREFERS TO "PEE IN HER DIAPER" RATHER THAN UP TO BSC. PT MEDICATED PER EMAR FOR CONSTIPATION WITH STOOL SOFTENER
--- NOTE | 2018-11-07 17:29 | NUR ---
Initial palliative care consult: Cassy is a 77 year old with a history of COPD O2 dependent at 2l/min at home, CHF, CKD stage 3, DM, a-fib, CVA, recent non-surgical humeral fracture. Pt was readmitted for a COPD exacerbation and possible pneumonia. She lives at [facility] with her . She reports her son sets up her medications in a pill box for her. She has a caregiver at [facility] who helps her with bathing and dressing, cleaning and cooking. She is able to ambulate with a wheel chair and sometimes she uses her 's walker. She denies falls. She reports that she is SOB and is able to ambulate only from bathroom to her chair. Her SOB restricts her ability to complete ADLs. She reports a weight loss of about 80 pounds over the past year. She reports her appetite has decreased. She reports her quality of life is 6-7/10 currently. She states she has a POLST at home but there is not one on file at this time. Pt confirms her DNR status with limited interventions. New POLST form filled out and signed. Placed on the chart for Dr. Lowery to sign. Pt reports she is currently not SOB at rest. She c/o constipation, no BM x 4 days, bowel care has been ordered. She reports constant aching R hip pain that radiates down to her knee. She rates this ache at 7-8/10. She states this pain in her R hip started this past Saturday when she possibly turned or twisted wrong. No nausea reported at this time. She reports that she feels that she has the help she needs at home. Discussed with her the reasons why she doesn't want to get OOB and participate with therapy. She states that her R hip pain is causing her to not want to get out of bed. She reports that if her pain was better she would get out of bed and work with therapy and nursing staff. Discussed risks of inactivity: decreased mobility, weakness, blood clots, pneumonia. Discussed options for pain relief. She is willing to consider hot/cool therapies. She reports that the norco relieves her pain but wears off before the next dose is due. Discussed alternating tylenol with the norco as this is what she was taking at home and getting some relief. Limit use of narcotics is possible due to long standing problems with constipation. She reports she normally has one loose stool about once every 3 days at home and she uses MOM at home for bowel care. Discussed options for discharge including HH and hospice. Explained the differences between the two programs and how the goals of care for each program are different. Pt has had 4 hospital admissions and 2 ER visits in the past 6 months. Home RT visits have happened once a month for the past four months. Pt may likely qualify for hospice services based on her chart that has been reviewed. KPS score = 50. PPS score = [address] Lowery and updated him on discussion with pt. New orders rec'd for pain management and DNR. Requested that Dr. Lowery sign new POLST form which is in pt's chart marleny. Pt given information on hospice per her request. No questions at this time from pt. She will need some time to digest the information she has rec'd and to ask questions that she may come up with. PC to follow up with symptom managment, advanced care planning and processing of new POLST form once signed by MD. Nursing updated on plan.
--- NOTE | 2018-11-07 19:36 | NUR ---
SHIFT SUMMARY PT AXO, THOUGH FORGETFUL AT TIMES. PT MEDICATED FOR PAIN PER EMAR. REFUSED OOB THROUGHOUT THE DAY. BONDS AND PALLIATIVE CARE AWARE. PT COMPLAINED OF CHEST PAIN ONCE THIS SHIFT WHEN DR WAS IN ROOM. EKG COMPLETED AND TROPONINS MEASURED, NEGATIVE. PT OPTS TO "GO PEE IN DIAPER" INSTEAD OF OOB TO BSC. BED IN LOW POSITION, CALL LIGHT WITHIN REACH, BED ALARM ON. REPORT GIVEN TO SURGICAL RESIDENT NURSE WHO WILL ASSUME CARE AT THIS TIME
--- NOTE | 2018-11-08 04:37 | NUR ---
SHIFT SUMAMRY PATIENT HAD NO ACUTE CHANGES OBSERVED THIS SHIFT. AXOX 3 W/CONFUSION AND BEDFAST. PATIENT REFUSING OOB TO BSC. ATTENDS IN PLACE. CBG 138. REPORTED R LEG PAIN X TWO AND RECEIVED NORCO PER EMAR. VSS/AFEBRILE. DENIES SOB AND N/V. ON 2L O2 NC BASELINE. TAKES MEDS WHOLE IN APPLE SAUCE. CALL LIGHT IN REACH. BED IN LOWEST POSITION. WILL CONTINUE TO MONITOR UNTIL DAY SHIFT NURSE ASSUMES CARE.
[2018-11-08 04:52] LABS: BASOPHILS ABSOLUTE AUTO 0.01 K/mm3 (0.00-0.23); BASOPHILS PERCENT AUTO 0 % (0-2); EOSINOPHILS ABSOLUTE AUTO 0.04 K/mm3 (0.00-0.68); EOSINOPHILS PERCENT AUTO 0 % (0-6); Hematocrit 35.7 % (33.0-51.0); Hemoglobin 11.5 g/dL (11.5-16.0); IMMATURE GRAN ABSOLUTE AUTO 0.05 K/mm3 (0.00-0.10); IMMATURE GRAN PERCENT AUTO 1 % (0-1); LYMPHOCYTES ABSOLUTE AUTO 1.05 K/mm3 (0.84-5.20); LYMPHOCYTES PERCENT AUTO 12 % (21-46); MONOCYTES ABSOLUTE AUTO 1.03 K/mm3 (0.16-1.47); MONOCYTES PERCENT AUTO 11 % (4-13); Mean Corpuscular HGB 31.5 pg (26.0-34.0); Mean Corpuscular HGB Conc 32.2 g/dL (31.5-36.5); Mean Corpuscular Volume 98 fL (80-100); Mean Platelet Volume 10.6 fL (9.1-12.4); NEUTROPHILS ABSOLUTE AUTO 6.98 K/mm3 (1.96-9.15); NEUTROPHILS PERCENT AUTO 76 % (41-73); Platelet Count 212 K/mm3 (150-400); RDW Coefficient Variation 15.4 % (11.7-14.2); RDW Standard Deviation 55.4 fL (35.1-46.3); Red Blood Cell Count 3.65 M/mm3 (3.80-5.20); White Blood Cell Count 9.16 K/mm3 (4.00-11.30)
[2018-11-08 05:19] LABS: Albumin, Blood 2.3 g/dL (3.4-5.0); Albumin/Globulin Ratio 0.6 (0.8-1.8); Bilirubin, Total 0.4 mg/dL (0.1-1.0); Calcium, Blood 8.9 mg/dL (8.5-10.1); Creatinine, Blood 1.43 mg/dL (0.40-1.00); Potassium, Blood 4.8 mmol/L (3.5-5.5); Total Protein, Blood 6.3 g/dL (6.4-8.2)
[2018-11-08] MEDS ORDERED: Tylenol325 MG PO (14:51)
[2018-11-08] MEDS ORDERED: PRED10 PO ×3 (14:53→14:55)
[2018-11-08] MEDS ORDERED: PRED5 PO (14:56)
[2018-11-08] MEDS ORDERED: DOXY100 PO (14:58)
--- NOTE | 2018-11-08 15:11 | NUR ---
PER PRIMARY RN MARINE, PATIENT REQUESTING TO HAVE [facility] AFTER DISCHARGE
--- NOTE | 2018-11-08 15:50 | NUR ---
PATIENT D/C'D TO HOME WITH SON. D/C INSTRUCTIONS DISCUSSED WITH PATIENT AND SON AND COPY PROVIDED. RX MEDICATIONS FAXED TO [facility] IN [place]. PATIENT DENIES ANY FURTHER QUESTIONS OR CONCERNS.
[2018-11-11] MEDS ORDERED: Norco 5-325 Ta1 EACH PO (05:56)
[2018-11-11] MEDS ORDERED: ALBU3IS INH (05:57)
--- NOTE | 2018-11-16 01:25 | NUR ---
CORRECTED ISOLATION ORDER, PLACED ORDER IN UNDER CORRECT PROVIDER, INITIALLY PLACED UNDER INCORRECT PROVIDER.
== END 2018-11-08 15:52 | disposition home health service (06) | DRG 193 ==
LOC: ER 11:33 → MEDS 14:54
PROVIDERS: Family Medicine; Internal Medicine; ADMIT Student in an Organized Health Care Education/Training Program
DX: J18.1 Lobar pneumonia, unspecified organism (principal); I50.33 Acute on chronic diastolic (congestive) heart failure; I13.0 Hypertensive heart and chronic kidney disease with heart failure and stage 1 through stage 4 chronic kidney disease, or unspecified chronic kidney disease; J44.1 Chronic obstructive pulmonary disease with (acute) exacerbation; N17.9 Acute kidney failure, unspecified; J44.0 Chronic obstructive pulmonary disease with (acute) lower respiratory infection; N18.3 Chronic kidney disease, stage 3 (moderate); E11.22 Type 2 diabetes mellitus with diabetic chronic kidney disease; Z99.81 Dependence on supplemental oxygen; Z86.73 Personal history of transient ischemic attack (TIA), and cerebral infarction without residual deficits; M54.30 Sciatica, unspecified side; I48.0 Paroxysmal atrial fibrillation; K59.00 Constipation, unspecified
CPT/HCPCS: 36415; 71046; 74018; 80048; 80053; 82947; 83880; 84145; 84484; 85025; 93005; 93010; 94640; 94760; 96374; 97110; 97162; 97165; 97530; 97535; 99285-25; A9270-GY; J1650; J2930

== ENCOUNTER 2018-11-11 16:13 | Inpatient (IN) | payer MEDICARE, OTHER ==
[~2018-11-11] VITALS: Ht 170.2 cm; Wt 71.9 kg
[~2018-11-11 16:13] MED LIST changes: +DOC250 PO; +DOXY100 PO; +PRED10 PO; +PRED5 PO; +PROBIOTIC1 EACH PO; +Tylenol325 MG PO
[2018-11-11 17:02] LABS: BASOPHILS ABSOLUTE AUTO 0.06 K/mm3 (0.00-0.23); BASOPHILS PERCENT AUTO 0 % (0-2); EOSINOPHILS PERCENT AUTO 0 % (0-6); Hematocrit 38.6 % (33.0-51.0); Hemoglobin 12.4 g/dL (11.5-16.0); IMMATURE GRAN ABSOLUTE AUTO 0.44 K/mm3 (0.00-0.10); IMMATURE GRAN PERCENT AUTO 1 % (0-1); LYMPHOCYTES ABSOLUTE AUTO 0.29 K/mm3 (0.84-5.20); LYMPHOCYTES PERCENT AUTO 1 % (21-46); MONOCYTES ABSOLUTE AUTO 2.85 K/mm3 (0.16-1.47); MONOCYTES PERCENT AUTO 9 % (4-13); Mean Corpuscular HGB 30.6 pg (26.0-34.0); Mean Corpuscular HGB Conc 32.1 g/dL (31.5-36.5); NEUTROPHILS ABSOLUTE AUTO 29.42 K/mm3 (1.96-9.15); NEUTROPHILS PERCENT AUTO 89 % (41-73); Platelet Count 188 K/mm3 (150-400); RDW Coefficient Variation 15.4 % (11.7-14.2); RDW Standard Deviation 53.8 fL (35.1-46.3); Red Blood Cell Count 4.05 M/mm3 (3.80-5.20); White Blood Cell Count 33.06 K/mm3 (4.00-11.30)
[2018-11-11 17:06] LABS: Mean Corpuscular Volume 95 fL (80-100)
[2018-11-11 17:29] LABS: Albumin, Blood 2.3 g/dL (3.4-5.0); Albumin/Globulin Ratio 0.6 (0.8-1.8); Bilirubin, Total 0.6 mg/dL (0.1-1.0); Calcium, Blood 8.6 mg/dL (8.5-10.1); Creatinine, Blood 1.63 mg/dL (0.40-1.00); Globulin, Blood 4.1 g/dL (2.2-4.0); Potassium, Blood 4.8 mmol/L (3.5-5.5); Total Protein, Blood 6.4 g/dL (6.4-8.2); Troponin I 0.028 ng/mL (0.000-0.040)
[2018-11-11 19:10] LABS: Source, Urine Catheter
[2018-11-11 19:15] LABS: Appearance, Urine Hazy (Clear); Bilirubin, Urine Neg (Neg); Blood, Urine 2+ (Neg); Color, Urine Yellow (P-Yellow); Glucose Qualitative, Urine Neg (Neg); Ketones, Urine Neg (Neg); Leukocyte Esterase, Urine 3+ (Neg); Nitrite, Urine Neg (Neg); Protein, Urine 2+ (Neg); Urobilinogen, Urine NORM (Normal)
[2018-11-11 19:25] LABS: Red Blood Cells, Urine 0-2 /hpf (0-2); Squamous Epithelial Cells Few /hpf (Few); White Blood Cells, Urine TNTC /hpf (0-5)
[2018-11-11 19:26] LABS: Bacteria Few /hpf
[2018-11-11] MEDS ORDERED: Nystatin15 GM TOP (20:21)
[2018-11-12 05:11] LABS: BASOPHILS ABSOLUTE AUTO 0.04 K/mm3 (0.00-0.23); BASOPHILS PERCENT AUTO 0 % (0-2); EOSINOPHILS PERCENT AUTO 0 % (0-6); Hematocrit 35.3 % (33.0-51.0); Hemoglobin 11.2 g/dL (11.5-16.0); IMMATURE GRAN ABSOLUTE AUTO 0.21 K/mm3 (0.00-0.10); IMMATURE GRAN PERCENT AUTO 1 % (0-1); LYMPHOCYTES ABSOLUTE AUTO 0.56 K/mm3 (0.84-5.20); LYMPHOCYTES PERCENT AUTO 2 % (21-46); MONOCYTES ABSOLUTE AUTO 1.48 K/mm3 (0.16-1.47); MONOCYTES PERCENT AUTO 6 % (4-13); Mean Corpuscular HGB 30.9 pg (26.0-34.0); Mean Corpuscular HGB Conc 31.7 g/dL (31.5-36.5); Mean Platelet Volume 10.2 fL (9.1-12.4); NEUTROPHILS ABSOLUTE AUTO 24.07 K/mm3 (1.96-9.15); NEUTROPHILS PERCENT AUTO 91 % (41-73); Platelet Count 142 K/mm3 (150-400); RDW Coefficient Variation 15.7 % (11.7-14.2); RDW Standard Deviation 56.2 fL (35.1-46.3); Red Blood Cell Count 3.62 M/mm3 (3.80-5.20); White Blood Cell Count 26.36 K/mm3 (4.00-11.30)
--- NOTE | 2018-11-12 05:14 | NUR ---
SHIFT SUMMARY PT ADMITTED WITH SEVERE SEPSIS. PT ALERT AND ORIENTED, BUT IS NON-AMBULATORY. PT FROM ED WITH NOLASCO CATH PLACED. PT INCONTINENT OF STOOL. STAGE 2 PRESSURE ULCER NOTED ON COCCYX, ALSO REDDENED. MEPILEX PLACED. EXCORIATION ALSO NOTED AROUND ANUS, BARRIER CREAM APPLIED. PT RECEIVED ANOTHER BAG OF LR DUE TO LACTIC ACID INCREASING TO 2.7. PT C/O RIGHT LEG PAIN AND MEDICATED X1 DURING THE NIGHT. TELE IN PLACE SHOWS NSR WITH OCCASIONAL PVC AT 98. WILL CONTINUE TO MONITOR.
[2018-11-12 05:16] LABS: Mean Corpuscular Volume 98 fL (80-100)
[2018-11-12 06:00] LABS: Bun/Creatinine Ratio 83.4 (12.0-20.0); Calcium, Blood 8.3 mg/dL (8.5-10.1); Creatinine, Blood 1.63 mg/dL (0.40-1.00); Potassium, Blood 4.8 mmol/L (3.5-5.5)
--- NOTE | 2018-11-12 17:57 | NUR ---
PT.SITTING UP IN BED EATING DINNER, CRIES OUT OCCASSIOONALLY WITH PAIN BUT WHEN I GET TO ROOM SHE IS SLEEPING. NO NOTEABLE CHANGES THIS SHIFT.
--- NOTE | 2018-11-13 04:48 | NUR ---
Shift Summary Pt has not slept well, has been moaning and crying out in pain. Medicated as per emar as often as able to. Pt also has had 3 incontinent stools this evening, which she c/o burning due to bottom being sore. Cream applied x2 and nystatin cream applied after cleaning up last bowel movement. Has had oxygen on per nasal cannula. Telemetry intact showing NSR with 1st degree block and PVC's. No acute events noted during the night, will continue to monitor.
[2018-11-13 05:09] LABS: BASOPHILS ABSOLUTE AUTO 0.06 K/mm3 (0.00-0.23); BASOPHILS PERCENT AUTO 0 % (0-2); EOSINOPHILS PERCENT AUTO 0 % (0-6); Hematocrit 37.9 % (33.0-51.0); Hemoglobin 11.9 g/dL (11.5-16.0); IMMATURE GRAN ABSOLUTE AUTO 0.23 K/mm3 (0.00-0.10); IMMATURE GRAN PERCENT AUTO 1 % (0-1); LYMPHOCYTES ABSOLUTE AUTO 0.69 K/mm3 (0.84-5.20); LYMPHOCYTES PERCENT AUTO 2 % (21-46); MONOCYTES ABSOLUTE AUTO 1.57 K/mm3 (0.16-1.47); MONOCYTES PERCENT AUTO 5 % (4-13); Mean Corpuscular HGB 31.5 pg (26.0-34.0); Mean Corpuscular HGB Conc 31.4 g/dL (31.5-36.5); Mean Corpuscular Volume 100 fL (80-100); Mean Platelet Volume 11.4 fL (9.1-12.4); NEUTROPHILS ABSOLUTE AUTO 27.01 K/mm3 (1.96-9.15); NEUTROPHILS PERCENT AUTO 91 % (41-73); Platelet Count 142 K/mm3 (150-400); RDW Coefficient Variation 15.8 % (11.7-14.2); RDW Standard Deviation 57.5 fL (35.1-46.3); Red Blood Cell Count 3.78 M/mm3 (3.80-5.20); White Blood Cell Count 29.56 K/mm3 (4.00-11.30)
[2018-11-13 05:44] LABS: Magnesium, Blood 1.6 mg/dL (1.6-2.4)
[2018-11-13 05:53] LABS: Alanine Aminotransfer (ALT/SGP 17 U/L (12-78); Albumin, Blood 1.7 g/dL (3.4-5.0); Albumin/Globulin Ratio 0.4 (0.8-1.8); Alk Phos 89 U/L (50-136); Anion Gap 19 mmol/L (6-16); Aspartate Aminotrans (AST/SGOT 26 U/L (12-37); Bilirubin, Total 0.5 mg/dL (0.1-1.0); Blood Urea Nitrogen 104 mg/dL (8-24); Bun/Creatinine Ratio 136.7 (12.0-20.0); CO2, Blood 15 mmol/L (21-32); Chloride, Blood 109 mmol/L (98-108); Creatinine, Blood 0.76 mg/dL (0.40-1.00); Globulin, Blood 4.1 g/dL (2.2-4.0); Glomerular Filtration Rate >60 (60-); Glucose, Blood 63 mg/dL (70-99); Phosphorus, Blood 5.2 mg/dL (2.5-4.9); Potassium, Blood 4.4 mmol/L (3.5-5.5); Sodium, Blood 143 mmol/L (136-145); Total Protein, Blood 5.8 g/dL (6.4-8.2); Vancomycin, Random 5.5 ug/mL
--- NOTE | 2018-11-13 06:08 | NUR ---
PT HAS CRITIAL LOW CALCIUM OF 5.4, HOSPITALIST NOTIFIED AND ORDER RECEIVED.
[2018-11-13 06:12] LABS: Calcium, Blood 5.4 mg/dL (8.5-10.1)
[2018-11-13 12:27] LABS: BASOPHILS ABSOLUTE AUTO 0.03 K/mm3 (0.00-0.23); BASOPHILS PERCENT AUTO 0 % (0-2); EOSINOPHILS PERCENT AUTO 0 % (0-6); Hematocrit 35.1 % (33.0-51.0); Hemoglobin 11.2 g/dL (11.5-16.0); IMMATURE GRAN ABSOLUTE AUTO 0.15 K/mm3 (0.00-0.10); IMMATURE GRAN PERCENT AUTO 1 % (0-1); LYMPHOCYTES ABSOLUTE AUTO 0.56 K/mm3 (0.84-5.20); LYMPHOCYTES PERCENT AUTO 2 % (21-46); MONOCYTES ABSOLUTE AUTO 1.27 K/mm3 (0.16-1.47); MONOCYTES PERCENT AUTO 5 % (4-13); Mean Corpuscular HGB 31.3 pg (26.0-34.0); Mean Corpuscular HGB Conc 31.9 g/dL (31.5-36.5); Mean Corpuscular Volume 98 fL (80-100); Mean Platelet Volume 11.4 fL (9.1-12.4); NEUTROPHILS ABSOLUTE AUTO 23.64 K/mm3 (1.96-9.15); NEUTROPHILS PERCENT AUTO 92 % (41-73); Platelet Count 144 K/mm3 (150-400); RDW Coefficient Variation 15.5 % (11.7-14.2); RDW Standard Deviation 55.5 fL (35.1-46.3); Red Blood Cell Count 3.58 M/mm3 (3.80-5.20); White Blood Cell Count 25.65 K/mm3 (4.00-11.30)
[2018-11-13 12:39] LABS: C-REACTIVE PROTEIN, EXT RANGE 16.3 mg/dL (0.000-0.300)
[2018-11-13 12:46] LABS: Albumin, Blood 1.9 g/dL (3.4-5.0); Albumin/Globulin Ratio 0.5 (0.8-1.8); Bilirubin, Total 0.5 mg/dL (0.1-1.0); Bun/Creatinine Ratio 91.7 (12.0-20.0); Creatinine, Blood 1.33 mg/dL (0.40-1.00); Globulin, Blood 3.9 g/dL (2.2-4.0); Potassium, Blood 3.6 mmol/L (3.5-5.5); Total Protein, Blood 5.8 g/dL (6.4-8.2)
[2018-11-13 13:01] LABS: Calcium, Blood 8.5 mg/dL (8.5-10.1)
--- NOTE | 2018-11-13 19:05 | NUR ---
PT. WITHOUT CHANGE THIS SHIFT. STILL REPORTING SCIATICA PAIN. WANTS TO LAY ON HER RIGHT SIDE MOST OF THE TIME, WE ROLL HER OFF OF IT AND SHE MOVES RIGHT BACK. DR. TAPIA CONSULTED TO COME SEE PATIENT.
--- NOTE | 2018-11-14 07:31 | NUR ---
11/14/18 0620 MEDICATED FOR PAIN WITH EFFECT. REPOSITIONED Q 1-2 HOURS PER TOLERANCE. VERY WEAK AND HELPS LITTLE. VITALS STABLE.
[2018-11-14 08:37] LABS: BASOPHILS ABSOLUTE AUTO 0.02 K/mm3 (0.00-0.23); BASOPHILS PERCENT AUTO 0 % (0-2); EOSINOPHILS ABSOLUTE AUTO 0.02 K/mm3 (0.00-0.68); EOSINOPHILS PERCENT AUTO 0 % (0-6); Hematocrit 29.3 % (33.0-51.0); Hemoglobin 9.3 g/dL (11.5-16.0); IMMATURE GRAN ABSOLUTE AUTO 0.12 K/mm3 (0.00-0.10); IMMATURE GRAN PERCENT AUTO 1 % (0-1); LYMPHOCYTES ABSOLUTE AUTO 0.86 K/mm3 (0.84-5.20); LYMPHOCYTES PERCENT AUTO 4 % (21-46); MONOCYTES ABSOLUTE AUTO 1.13 K/mm3 (0.16-1.47); MONOCYTES PERCENT AUTO 6 % (4-13); Mean Corpuscular HGB 31.2 pg (26.0-34.0); Mean Corpuscular HGB Conc 31.7 g/dL (31.5-36.5); Mean Corpuscular Volume 98 fL (80-100); Mean Platelet Volume 11.8 fL (9.1-12.4); NEUTROPHILS ABSOLUTE AUTO 17.55 K/mm3 (1.96-9.15); NEUTROPHILS PERCENT AUTO 89 % (41-73); Platelet Count 139 K/mm3 (150-400); RDW Coefficient Variation 15.6 % (11.7-14.2); RDW Standard Deviation 55.8 fL (35.1-46.3); Red Blood Cell Count 2.98 M/mm3 (3.80-5.20)
[2018-11-14 08:52] LABS: Vancomycin, Trough 15.1 ug/mL (5.0-10.0)
[2018-11-14 09:01] LABS: Alanine Aminotransfer (ALT/SGP 15 U/L (12-78); Albumin, Blood 1.6 g/dL (3.4-5.0); Albumin/Globulin Ratio 0.4 (0.8-1.8); Alk Phos 71 U/L (50-136); Anion Gap 11 mmol/L (6-16); Aspartate Aminotrans (AST/SGOT 22 U/L (12-37); Bilirubin, Total 0.4 mg/dL (0.1-1.0); Blood Urea Nitrogen 100 mg/dL (8-24); Bun/Creatinine Ratio 94.3 (12.0-20.0); CO2, Blood 23 mmol/L (21-32); Calcium, Blood 7.7 mg/dL (8.5-10.1); Chloride, Blood 109 mmol/L (98-108); Creatinine, Blood 1.06 mg/dL (0.40-1.00); Globulin, Blood 3.6 g/dL (2.2-4.0); Glomerular Filtration Rate 54 (60-); Glucose, Blood 75 mg/dL (70-99); Phosphorus, Blood 4.1 mg/dL (2.5-4.9); Potassium, Blood 4.2 mmol/L (3.5-5.5); Sodium, Blood 143 mmol/L (136-145); Total Protein, Blood 5.2 g/dL (6.4-8.2)
[2018-11-14 14:07] LABS: HEPARIN INDUCED PLATELET AB 0.134 OD (0.000-0.400)
--- NOTE | 2018-11-15 04:53 | NUR ---
SHIFT SUMMARY PT HAS MOANED DURING THE NIGHT WITH C/O PAIN. HAS BEEN MEDICATED FOR PAIN, BUT DOESN'T SEEM TO PROVIDE MUCH RELIEF ACCORDING TO PT. NO ACUTE EVENTS OVER NIGHT, WILL CONTINUE TO MONITOR.
[2018-11-15 05:34] LABS: BASOPHILS ABSOLUTE AUTO 0.02 K/mm3 (0.00-0.23); BASOPHILS PERCENT AUTO 0 % (0-2); EOSINOPHILS ABSOLUTE AUTO 0.04 K/mm3 (0.00-0.68); EOSINOPHILS PERCENT AUTO 0 % (0-6); Hematocrit 29.1 % (33.0-51.0); Hemoglobin 9.1 g/dL (11.5-16.0); IMMATURE GRAN ABSOLUTE AUTO 0.14 K/mm3 (0.00-0.10); IMMATURE GRAN PERCENT AUTO 1 % (0-1); LYMPHOCYTES ABSOLUTE AUTO 0.91 K/mm3 (0.84-5.20); LYMPHOCYTES PERCENT AUTO 5 % (21-46); MONOCYTES ABSOLUTE AUTO 1.26 K/mm3 (0.16-1.47); MONOCYTES PERCENT AUTO 8 % (4-13); Mean Corpuscular HGB 30.4 pg (26.0-34.0); Mean Corpuscular HGB Conc 31.3 g/dL (31.5-36.5); Mean Corpuscular Volume 97 fL (80-100); Mean Platelet Volume 11.4 fL (9.1-12.4); NEUTROPHILS ABSOLUTE AUTO 14.35 K/mm3 (1.96-9.15); NEUTROPHILS PERCENT AUTO 86 % (41-73); Platelet Count 122 K/mm3 (150-400); RDW Coefficient Variation 15.5 % (11.7-14.2); RDW Standard Deviation 55.1 fL (35.1-46.3); Red Blood Cell Count 2.99 M/mm3 (3.80-5.20); White Blood Cell Count 16.72 K/mm3 (4.00-11.30)
[2018-11-15 06:09] LABS: Albumin, Blood 1.6 g/dL (3.4-5.0); Anion Gap 6 mmol/L (6-16); Blood Urea Nitrogen 105 mg/dL (8-24); Bun/Creatinine Ratio 92.9 (12.0-20.0); CO2, Blood 25 mmol/L (21-32); Calcium, Blood 7.9 mg/dL (8.5-10.1); Chloride, Blood 114 mmol/L (98-108); Creatinine, Blood 1.13 mg/dL (0.40-1.00); Glomerular Filtration Rate 50 (60-); Glucose, Blood 84 mg/dL (70-99); Phosphorus, Blood 3.2 mg/dL (2.5-4.9); Sodium, Blood 145 mmol/L (136-145)
[2018-11-15 15:01] LABS: Stool Occult Blood Guaiac 1 Pos (Neg)
--- NOTE | 2018-11-15 18:08 | NUR ---
SHIFT SUMMARY PT A&Ox2. PT CALM AND COOPERTIAVE WITH CARE. PT RESTING IN BED DURIGN SHIFT, APPEARS TO BE SLEEPING INTERMITTENLY. PT REPORTS PAIN IN RIGHT LEG AND GENERALZIED PAIN, MEDICATED PER EMAR. PT DENIES SOB, >92% ON 2L O2 VIA NC. PT DENIES N/V DURING SHIFT. NOLASCO IN PLACE; PATENT AND DRAINING. PT RECEIVING IV ANTIBIOTICS. ELEVATED HR NOTED THIS AM, OTHER VSS. NO OTHER ACUTE CHANGES NOTED DURING SHIFT. WILL CONTINUE TO MONITOR. UNTIL REPORT GIVEN TO ONCOMING RN
--- NOTE | 2018-11-16 05:04 | NUR ---
SHIFT SUMMARY PT HAS SLEPT WELL DURING THE NIGHT. BOTH FEET AND HEELS MASSAGED AND LOTION APPLIED LAST NIGHT BEFORE PT FALLING ASLEEP. PT HAVING C/O HEEL PAIN AT THE TIME. HAS BEEN MEDICATED X1 WITH ORAL PAIN MEDICATION FOR C/O LEFT SIDED CHEST/RIB PAIN. NO OTHER C/O'S, WILL CONTINUE TO MONITOR.
[2018-11-16 05:26] LABS: BASOPHILS ABSOLUTE AUTO 0.01 K/mm3 (0.00-0.23); BASOPHILS PERCENT AUTO 0 % (0-2); EOSINOPHILS ABSOLUTE AUTO 0.06 K/mm3 (0.00-0.68); EOSINOPHILS PERCENT AUTO 0 % (0-6); Hematocrit 27.3 % (33.0-51.0); Hemoglobin 8.5 g/dL (11.5-16.0); IMMATURE GRAN ABSOLUTE AUTO 0.14 K/mm3 (0.00-0.10); IMMATURE GRAN PERCENT AUTO 1 % (0-1); LYMPHOCYTES ABSOLUTE AUTO 0.95 K/mm3 (0.84-5.20); LYMPHOCYTES PERCENT AUTO 6 % (21-46); MONOCYTES ABSOLUTE AUTO 1.05 K/mm3 (0.16-1.47); MONOCYTES PERCENT AUTO 6 % (4-13); Mean Corpuscular HGB 30.2 pg (26.0-34.0); Mean Corpuscular HGB Conc 31.1 g/dL (31.5-36.5); Mean Corpuscular Volume 97 fL (80-100); Mean Platelet Volume 11.7 fL (9.1-12.4); NEUTROPHILS ABSOLUTE AUTO 14.16 K/mm3 (1.96-9.15); NEUTROPHILS PERCENT AUTO 86 % (41-73); Platelet Count 125 K/mm3 (150-400); RDW Coefficient Variation 15.3 % (11.7-14.2); RDW Standard Deviation 54.4 fL (35.1-46.3); Red Blood Cell Count 2.81 M/mm3 (3.80-5.20); White Blood Cell Count 16.37 K/mm3 (4.00-11.30)
[2018-11-16 05:50] LABS: Creatinine, Blood 0.98 mg/dL (0.40-1.00); Potassium, Blood 4.5 mmol/L (3.5-5.5)
--- NOTE | 2018-11-16 18:19 | NUR ---
SUMMARY PT IS A/O X3, FLAT AFFECT, STATE WEAKNESS/FATIGUE. C/O CONSTIPATION THIS AM, INTERMITTANTLY MOANING OUT FOR HELP. MIRALAX GIVEN W/O IMMEDIATE RESULT, SHE REQUEST MOM. DR BARROW NOTIFIED, PLACE ORDER. PT HAS HAD MULT SOFT STOOLS THIS AFTERNOON, NO CONSTIPATION/HARD STOOL. SHE HAD PHYTHER WITH MINIMAL PARTICIPATION, THERAPIST STATE NOT MOTIVATED. EMT STATE BETTER PARTICIPATION THIS AFTERNOON. DX UTI, WBC WNL TODAY. IV ANTIBX CONTINUE. NOLASCO CATH FARHAN CLEAR YELLOW URINE. VSS.
--- NOTE | 2018-11-17 04:38 | NUR ---
SHIFT SUMMARY PT HAS SLEPT WELL T/O NIGHT. HAS BEEN MEDICATED FOR PAIN AT BEDTIME. NO ACUTE EVENTS NOTED DURING THE NIGHT. WILL CONTINUE TO MONITOR.
[2018-11-17 09:03] LABS: BASOPHILS ABSOLUTE AUTO 0.01 K/mm3 (0.00-0.23); BASOPHILS PERCENT AUTO 0 % (0-2); EOSINOPHILS ABSOLUTE AUTO 0.14 K/mm3 (0.00-0.68); EOSINOPHILS PERCENT AUTO 1 % (0-6); Hematocrit 27.7 % (33.0-51.0); Hemoglobin 8.7 g/dL (11.5-16.0); IMMATURE GRAN ABSOLUTE AUTO 0.21 K/mm3 (0.00-0.10); IMMATURE GRAN PERCENT AUTO 1 % (0-1); LYMPHOCYTES ABSOLUTE AUTO 1.16 K/mm3 (0.84-5.20); LYMPHOCYTES PERCENT AUTO 6 % (21-46); MONOCYTES ABSOLUTE AUTO 1.65 K/mm3 (0.16-1.47); MONOCYTES PERCENT AUTO 9 % (4-13); Mean Corpuscular HGB 31.2 pg (26.0-34.0); Mean Corpuscular HGB Conc 31.4 g/dL (31.5-36.5); Mean Corpuscular Volume 99 fL (80-100); Mean Platelet Volume 12.1 fL (9.1-12.4); NEUTROPHILS PERCENT AUTO 83 % (41-73); Platelet Count 138 K/mm3 (150-400); RDW Coefficient Variation 15.4 % (11.7-14.2); RDW Standard Deviation 55.6 fL (35.1-46.3); Red Blood Cell Count 2.79 M/mm3 (3.80-5.20); White Blood Cell Count 18.97 K/mm3 (4.00-11.30)
--- NOTE | 2018-11-17 16:49 | NUR ---
1625 SUPERVISOR DAIRY SANITATION SHOWED THIS RN 2ND STOOL THAT APPEARED BLACK TARRY UNFORMED ANSD LARGE IN THE LAST TWO HOURS. BP TRENDING DOWN THIS AFTERNOON FROM BASELINE. H&H TRENDING DOWN SINCE ADMISSION. PT WITH PALE APPEARANCE. PT HAS BEEN LETHARGIC MOST OF SHIFT, PT REPORTS FEELING OF GERALIZED FATIGUE. 1640 DR[address] HAYES NOTIFIED OF THE ABOVE. RECIEVED ORDERS FOR TELEMETRY, GUAIC STOOL, GI CONSULT, STOP ASPIRIN, STOP PLAVIX, STOP ASA. CBC, CBC, INR, PTT TO BE DRAWN IN AM. 1650 DR MARTIN ANSWERING SERVICE NOTIFIED.
--- NOTE | 2018-11-17 17:11 | NUR ---
MAGAN, PARVIZ, GIVEN STATUS UPDATE, PARVIZ AGREED WITH PLAN OF CARE.
--- NOTE | 2018-11-17 17:34 | NUR ---
DISCUSSED STATUS CHANGE WITH CN, CN ADVISED THAT PROVIDER BE REQUESTED FOR STAT H&H, DR. HAYES NOTIFIED, RECIEVED ORDERS FOR STAT H&H AND RESULTS CALLED BACK, DR. HAYES ADVISED TO GIVE 1 UNIT PRBC FOR HGB LESS THAN 8.
[2018-11-17 18:05] LABS: Hematocrit 27.2 % (33.0-51.0); Hemoglobin 8.7 g/dL (11.5-16.0)
--- NOTE | 2018-11-17 18:26 | NUR ---
SHIFT SUMMARY. PT HAS HAD THIRD UNFORMED BLACK TARRY EXTRA LARGE BM IN THE PAST 3-4 HOURS, H&H RESULTS RECIEVED. DR. HAYES NOTIFIED OF THE ABOVE, RECIEVED ORDERS TO STOP CBG AND INSULIN, CHANGE DIET TO FULL LIQUID, NS IV 75ML/HR.
[2018-11-18 04:09] LABS: Stool Occult Bld Immuno 1 Positive (NEGATIVE)
[2018-11-18 05:21] LABS: BASOPHILS ABSOLUTE AUTO 0.01 K/mm3 (0.00-0.23); BASOPHILS PERCENT AUTO 0 % (0-2); EOSINOPHILS PERCENT AUTO 1 % (0-6); Hematocrit 23.4 % (33.0-51.0); Hemoglobin 7.5 g/dL (11.5-16.0); IMMATURE GRAN ABSOLUTE AUTO 0.17 K/mm3 (0.00-0.10); IMMATURE GRAN PERCENT AUTO 1 % (0-1); LYMPHOCYTES ABSOLUTE AUTO 0.84 K/mm3 (0.84-5.20); LYMPHOCYTES PERCENT AUTO 5 % (21-46); MONOCYTES ABSOLUTE AUTO 1.59 K/mm3 (0.16-1.47); MONOCYTES PERCENT AUTO 8 % (4-13); Mean Corpuscular HGB 31.4 pg (26.0-34.0); Mean Corpuscular HGB Conc 32.1 g/dL (31.5-36.5); Mean Corpuscular Volume 98 fL (80-100); Mean Platelet Volume 11.4 fL (9.1-12.4); NEUTROPHILS ABSOLUTE AUTO 16.14 K/mm3 (1.96-9.15); NEUTROPHILS PERCENT AUTO 86 % (41-73); Platelet Count 129 K/mm3 (150-400); RDW Coefficient Variation 15.5 % (11.7-14.2); RDW Standard Deviation 55.5 fL (35.1-46.3); Red Blood Cell Count 2.39 M/mm3 (3.80-5.20); White Blood Cell Count 18.85 K/mm3 (4.00-11.30)
[2018-11-18 05:34] LABS: Percent Saturation 32.5 % (15.0-50.0)
[2018-11-18 05:36] LABS: International Normalized Ratio 1.08; Prothrombin Time Results 11.4 Sec (9.7-11.5)
[2018-11-18 05:43] LABS: Alanine Aminotransfer (ALT/SGP 15 U/L (12-78); Albumin, Blood 1.5 g/dL (3.4-5.0); Albumin/Globulin Ratio 0.5 (0.8-1.8); Alk Phos 61 U/L (50-136); Anion Gap 5 mmol/L (6-16); Aspartate Aminotrans (AST/SGOT 20 U/L (12-37); Bilirubin, Total 0.5 mg/dL (0.1-1.0); Blood Urea Nitrogen 66 mg/dL (8-24); CO2, Blood 26 mmol/L (21-32); Chloride, Blood 109 mmol/L (98-108); Creatinine, Blood 0.96 mg/dL (0.40-1.00); Globulin, Blood 3.1 g/dL (2.2-4.0); Glomerular Filtration Rate >60 (60-); Glucose, Blood 99 mg/dL (70-99); Potassium, Blood 4.7 mmol/L (3.5-5.5); Sodium, Blood 140 mmol/L (136-145); Total Protein, Blood 4.6 g/dL (6.4-8.2)
[2018-11-18 07:35] LABS: Vancomycin, Random 19.1 ug/mL
--- NOTE | 2018-11-18 07:41 | NUR ---
SUMMARY PT WITH FREQ VS TONIGHT.H/H REQUIRING BLOOD TRANSFUSION PER ORDERS. PT CONT WITH MELENA AND HYPOTENSIVE.DURING BLOOD DRAW THIS AM PT C/O BRIEF FEELING SHE MIGHT FAINT. DR COLEY WAS NOTIFIED BY DIE BARBER AND ? IF NEEDED ADDITIONAL SALINE BOLUS PRIOR TO BLOOD TRANSFUSION AND WAS INSTRUCTED NO BOLUS NEEDED. BLOOD TRANSFUSION WAS STARTED. PT WITH NO S/S OF REACTION AT PRESENT.
[2018-11-18 12:31] LABS: PCO2 Arterial 32.6 mmHg (35-45); PO2 Arterial 61.4 mmHg (80-100); pH Blood Arterial 7.49 (7.35-7.45)
--- NOTE | 2018-11-18 12:47 | NUR ---
FROM THIRD FLOOR BROUGHT TO SDS BY RN FROM THIRD FLOOR VSS. PATIENT COOPERATIVE BUT LETHARGIC. BROUGHT ON BED TO UNIT.
--- NOTE | 2018-11-18 13:13 | NUR ---
11/18/18 1313 Gage Evans Bite Block Placed3-LEAD EKG REVIEWED WITH PHYSICIAN PRIOR TO START OF PROCEDURE.Patient to ENDO 1History, Chart, Medications and Allergies reviewed before start of procedure.MONITOR INTACT WITH CONTINUOUS PULSE OXIMETRY AND INTERMITTENT BP.O2 VIA N/C INTACT THROUGHOUT SEDATION/PROCEDURE.See Anesthesia record
--- NOTE | 2018-11-18 13:26 | NUR ---
PT CONTINUED TO HAVE BLACK STOOL THIS AM, ONE BLACK TARRY AT BEGINING OF SHIFT AND THE, TWO HOURS LATER PT HAD BLACK LIQUID STOOL WITH RED BLOOD. DR. HAYES NOTIFIED, RECIEVED ORDERS FOR SECOND UNIT OF PRBC, TO NOTIFY DR. MARTIN, AND TRANSFER TO PCU. ONE UNIT HAD BEEN INFUSED ALREADY THIS AM. DR. MARTIN NOTIFIED OF PT CONDITION. PT HAD BEEN NPO THROUGHOUT THE NIGHT. 2 NEW IV'S STARTED BY CN. DR. MARTIN AND DR. HAYES ROUNDED ON PT WITHIN AN HOUR OF NOTIFICATION. IV FLUIDS INCREASED TO 125 ML/HR. ONE UNIT PRBC STARTED. IV ABX INFUSING. REPORT GIVEN TO ELEMENTARY ASSISTANT PRINCIPALJAMEY SHANKS. NOTIFIED OF PLAN OF CARE AND CHANGE IN STATUS, AGREED. DR. MARTIN REPORTED THAT HE HAD SPOKEN WITH PT'S SON PARVIZ. 1230 PT TRANSFERED TO ENDOSCOPY ROOM FOR PROCEDURE. BEDSIDE REPORT GIVEN TO JAMEY SIMS. BELONGING TAKEN TO PCU 4.
--- NOTE | 2018-11-18 14:46 | NUR ---
ASSUMED CARE OF PT. VS STABLE. PT COMPLAINS OF PAIN IN RIGHT HIP. PT REPOSITIONED AND WILL MEDICATE PER EMAR. 1 UNIT OF PRBC TRANSFUSION COMPLETE AT THIS TIME. PROTONIX GTT INFUSING PER ORDERS. PT HAS COARSE LUNG SOUNDS AND PRODUCTIVE COUGH OF THICK WHITE SPUTUM. PT ALERT AND ORIENTED. PROCEDURE AND FINDINGS EXPLAINED TO PT. WILL CONTINUE TO MONITOR CLOSELY.
--- NOTE | 2018-11-18 16:53 | NUR ---
PT GAVE THIS STUDENT RN PERMISSION TO CARE FOR HER TOMORROW
[2018-11-18 18:38] LABS: Hematocrit 30.4 % (33.0-51.0); Hemoglobin 10.1 g/dL (11.5-16.0)
--- NOTE | 2018-11-18 18:41 | NUR ---
SHIFT SUMMARY PT ALERT AND ORIENTED. VS STABLE. PROTONIX AND NS INFUSING PER ORDERS. HGB HAS INCREASED TO 10.1 SEE LABS. PT HAS HAD TWO LIQUID BLACK STOOLS SINCE ARRIVAL TO UNIT. PT DENIES ANY NAUSEA. PT TOLERATING CLEAR LIQUIDS AT THIS TIME. FAMILY AT BEDSIDE UPDATED ABOUT PROCEDURE AND PT CONDITION. WILL CONTINUE TO MONITOR AND REPORT TO ONCOMING RN. CALL LIGHT IN REACH.
--- NOTE | 2018-11-19 05:07 | NUR ---
SHIFT SUMMARY PT REMAINS ON FLOOR FOR PNEUMONIA, SEPSIS, GI BLEED. PT HAD ANOTHER BLACK JELLY STOOL LAST NIGHT. SHE IS A&O AND ABLE TO FOLLOW DIRECTIONS BUT REMAINS FATIGUED, SLEEPS QUICKLY AND EASILY BETWEEN CARES. MEPILEX IN PLACE TO SACRUM FOR PRESSURE SORE, REPLACED LAST NIGHT. NOLASCO PATENT AND DRAINING, IN PLACE FOR INCONT AND WOUND HEALING. PROTONIX DRIP RAN OVERNIGHT AT 10ML/HR. PT TAKING A CLEAR LIQUID DIET PER DR. MARTIN, PT UNINTERESTED IN EATING OR DRINKING MUCH, ENC SUPPLEMENTS. MEDICATED FOR SCIATIC PAIN X1 LAST NIGHT. AWAITING CBC RESULTS THIS AM. WILL CTM UNTIL PASS TO NEXT SHIFT.
[2018-11-19 07:21] LABS: BASOPHILS ABSOLUTE AUTO 0.01 K/mm3 (0.00-0.23); BASOPHILS PERCENT AUTO 0 % (0-2); EOSINOPHILS ABSOLUTE AUTO 0.27 K/mm3 (0.00-0.68); EOSINOPHILS PERCENT AUTO 2 % (0-6); Hematocrit 28.6 % (33.0-51.0); Hemoglobin 9.4 g/dL (11.5-16.0); IMMATURE GRAN ABSOLUTE AUTO 0.13 K/mm3 (0.00-0.10); IMMATURE GRAN PERCENT AUTO 1 % (0-1); LYMPHOCYTES ABSOLUTE AUTO 0.95 K/mm3 (0.84-5.20); LYMPHOCYTES PERCENT AUTO 6 % (21-46); MONOCYTES ABSOLUTE AUTO 0.89 K/mm3 (0.16-1.47); MONOCYTES PERCENT AUTO 6 % (4-13); Mean Corpuscular HGB 30.5 pg (26.0-34.0); Mean Corpuscular HGB Conc 32.9 g/dL (31.5-36.5); Mean Platelet Volume 11.4 fL (9.1-12.4); NEUTROPHILS ABSOLUTE AUTO 14.07 K/mm3 (1.96-9.15); NEUTROPHILS PERCENT AUTO 86 % (41-73); Platelet Count 100 K/mm3 (150-400); RDW Coefficient Variation 17.3 % (11.7-14.2); RDW Standard Deviation 57.8 fL (35.1-46.3); Red Blood Cell Count 3.08 M/mm3 (3.80-5.20); White Blood Cell Count 16.32 K/mm3 (4.00-11.30)
[2018-11-19 07:22] LABS: Mean Corpuscular Volume 93 fL (80-100)
--- NOTE | 2018-11-19 11:46 | NUR ---
PT REPORTS FEELING SHORT OF BREATH. DR. HAYES IN TO SEE PT WITH NEW ORDERS TO DC NS AND GIVE ONE TIME DOSE OF IV LASIX. PT RECEIVED A BREATHING TREATMENT. PT COUGHING UP THICK WHITE SPUTUM. VS STABLE. WILL CONTINUE TO MONITOR.
--- NOTE | 2018-11-19 18:20 | NUR ---
SHIFT SUMMARY PT ALERT AND ORIENTED. VS STABLE. O2 SATS REMAIN >90% ON 3L NC. LS DIMINISHED IN THE BASES AT THIS TIME. PT TOLERATING ORAL INTAKE. PT REPOSITIONED Q2H. WILL CONTINUE TO MONITOR AND REPORT TO ONCOMING RN. CALL LIGHT IN REACH.
[2018-11-20 04:26] LABS: BASOPHILS ABSOLUTE AUTO 0.01 K/mm3 (0.00-0.23); BASOPHILS PERCENT AUTO 0 % (0-2); EOSINOPHILS ABSOLUTE AUTO 0.15 K/mm3 (0.00-0.68); EOSINOPHILS PERCENT AUTO 1 % (0-6); Hematocrit 28.6 % (33.0-51.0); Hemoglobin 9.3 g/dL (11.5-16.0); IMMATURE GRAN ABSOLUTE AUTO 0.09 K/mm3 (0.00-0.10); IMMATURE GRAN PERCENT AUTO 1 % (0-1); LYMPHOCYTES ABSOLUTE AUTO 0.65 K/mm3 (0.84-5.20); LYMPHOCYTES PERCENT AUTO 5 % (21-46); MONOCYTES ABSOLUTE AUTO 0.72 K/mm3 (0.16-1.47); MONOCYTES PERCENT AUTO 6 % (4-13); Mean Corpuscular HGB 30.2 pg (26.0-34.0); Mean Corpuscular HGB Conc 32.5 g/dL (31.5-36.5); Mean Corpuscular Volume 93 fL (80-100); Mean Platelet Volume 11.6 fL (9.1-12.4); NEUTROPHILS ABSOLUTE AUTO 10.84 K/mm3 (1.96-9.15); NEUTROPHILS PERCENT AUTO 87 % (41-73); Platelet Count 110 K/mm3 (150-400); RDW Coefficient Variation 16.9 % (11.7-14.2); RDW Standard Deviation 55.6 fL (35.1-46.3); Red Blood Cell Count 3.08 M/mm3 (3.80-5.20); White Blood Cell Count 12.46 K/mm3 (4.00-11.30)
--- NOTE | 2018-11-20 05:31 | NUR ---
SHIFT SUMMARY PT A&O X4. MONITOR SHOWS NSR/ST, HR 90-110. LUNG SOUNDS CLEAR, DIM IN BASES. O2 TITRATED FROM 3L NC TO 4L NC THIS SHIFT. PT DESAT TO 85% W/ REMOVAL OF NC ON FIRST EPISODE, AND 78% ON 2ND EPISODE. NC REAPPLIED W/ TEMPORARY INCREASE TO 6L NC FOR RECOVERY W/ RETURN TO 4L NC VIA MOUTH D/T PT MOUTH BREATHING. PT SOB & DESAT W/ REPOSITION CHANGES, REQUIRING HIGHER O2 USAGE FOR ACTIVITY. OTHERWISE VSS. NO BLOODY STOOLS. PT W/ 1 BROWN, UNFORMED, SMEAR SIZED BM THIS SHIFT. NOLASOC CATH PATENT AND DRAINING. MEPILEX DRESSING C/D/I TO SACRUM. PT REPOSITIONING T/O SHIFT. WILL CONTINUE TO MONITOR AND PROVIDE CARE UNTIL REPORT OFF TO DAY SHIFT RN.
--- NOTE | 2018-11-20 16:44 | NUR ---
SHIFT SUMMARY NO ACUTE CHANGES. PATIENT MEDICATED X 2 FOR PAIN THIS SHIFT. PATIENT'S OXYGEN SATURATION DROPS EASILY DURING ACTIVITY AND MEALTIME. CURRENTLY 4L NC TO MAINTAIN SATURATION ABOVE 90%. PATIENT WORKED WITH PT AND OT TODAY. PATIENT ABLE TO SIT ON EDGE OF BED. POOR PO INTAKE. NOLASCO PATENT AND DRAINING. CALL LIGHT IN REACH, WILL CONTINUE TO MONITOR.
--- NOTE | 2018-11-20 22:58 | NUR ---
TRANSFER NOTE PT MEDICAL W/ TELE STATUS. REPORT CALLED TO MEDICAL FLOOR JAMEY FRIEND @ THIS TIME. PT TO BED TRANSFERED BY BED W/ OXYGEN. PT A&O X4. LUNG SOUNDS CLEAR, DIM IN BASES. SPO2 > 90% ON 3-5L NC. PT SOB W/ ACTIVITY, REQUIRING OXYGEN TITRATION FOR REPOSITIONING IN BED. PT WEAK, REQUIRING 2 PERSON MODERATE ASSIST. NOLASCO CATH PATENT AND DRAINING CLEAR YELLOW URINE. PRESSURE ULCERS TO SACRUM COVERED W/ MEPILEX, DRESSING C/D/I, PHOTO IN CHART.
--- NOTE | 2018-11-21 05:06 | NUR ---
SHIFT SUMMARY PT PCU TRANSFER. ALERT AND ORIENTED. HAS OXYGEN ON AT 5L/NC. IVF'S INFUSING AT TKO. PT INCONTINENT OF STOOL THIS AM. TELEMETRY INTACT AND SHOWS NSR AND SINUS TACH AT TIMES. MO ACUTE EVENTS NOTED, WILL CONTINUE TO MONITOR.
[2018-11-21 05:58] LABS: BASOPHILS ABSOLUTE AUTO 0.01 K/mm3 (0.00-0.23); BASOPHILS PERCENT AUTO 0 % (0-2); EOSINOPHILS ABSOLUTE AUTO 0.16 K/mm3 (0.00-0.68); EOSINOPHILS PERCENT AUTO 1 % (0-6); Hematocrit 28.2 % (33.0-51.0); Hemoglobin 9.1 g/dL (11.5-16.0); IMMATURE GRAN ABSOLUTE AUTO 0.06 K/mm3 (0.00-0.10); IMMATURE GRAN PERCENT AUTO 1 % (0-1); LYMPHOCYTES PERCENT AUTO 5 % (21-46); MONOCYTES PERCENT AUTO 8 % (4-13); Mean Corpuscular HGB 31.2 pg (26.0-34.0); Mean Corpuscular HGB Conc 32.3 g/dL (31.5-36.5); Mean Platelet Volume 11.2 fL (9.1-12.4); NEUTROPHILS ABSOLUTE AUTO 10.05 K/mm3 (1.96-9.15); NEUTROPHILS PERCENT AUTO 85 % (41-73); Platelet Count 101 K/mm3 (150-400); RDW Coefficient Variation 16.6 % (11.7-14.2); RDW Standard Deviation 57.1 fL (35.1-46.3); Red Blood Cell Count 2.92 M/mm3 (3.80-5.20); White Blood Cell Count 11.78 K/mm3 (4.00-11.30)
[2018-11-21 05:59] LABS: Mean Corpuscular Volume 97 fL (80-100)
[2018-11-21 06:19] LABS: Albumin, Blood 1.5 g/dL (3.4-5.0); Anion Gap 7 mmol/L (6-16); Blood Urea Nitrogen 39 mg/dL (8-24); Bun/Creatinine Ratio 48.8 (12.0-20.0); CO2, Blood 24 mmol/L (21-32); Chloride, Blood 108 mmol/L (98-108); Glomerular Filtration Rate >60 (60-); Glucose, Blood 86 mg/dL (70-99); Magnesium, Blood 1.9 mg/dL (1.6-2.4); Phosphorus, Blood 2.2 mg/dL (2.5-4.9); Potassium, Blood 4.2 mmol/L (3.5-5.5); Sodium, Blood 139 mmol/L (136-145)
--- NOTE | 2018-11-21 08:10 | NUR ---
PT PLEASANT COOP A/O. SITTING UP IN BED. STATES RT LEG SCIATICA PAIN. FEW DAYS NOW. IS 8/10 PAIN . MED PER EMAR. H/R IRREG. HX OF AFIB. PER TELE: NSR WITH PVCS, RATE 96. LUNGS DIM UPPER, CLEAR BASES. NOW ON 5L O2. RESP EASY, UNLABORED. BT X4 STATES LAST BM YEST. ABD SOFT. LUMPY/DISTORTED. SMALL OLD SCAB LOW LEFT ABD PRESENTS PRIOR OSTOMY SITE. PT STATES OLD WOUND. VOIDS PER NOLASCO TATH. DRAINING YELLOW FLUID. COCCYX ULCER CDI COVERED WITH MEPILIX TYPE DRESSING. LEFT ARM +1 EDEMA. IV INFUSING AT 10 TKO. BED IN LOW POSITION, CALL LITE IN REACH, CALLS APPROP
--- NOTE | 2018-11-21 09:30 | NUR ---
[facility]CC THERAPY CALLED. I WAS OFF FLOOR AT TIME. STATES BEEN WORKING WITH PT. NOW IS QUITE SOB. TURNED O2 UP TO 7L. I CALLED ARTISTIC ASSOCIATE KEMI, AND RESPIRATORY TO COME SEE PT. UPON MY RETURN BACK TO ROOM, PT COMFORTABLE IN BED. BACK TO 5L O2. BREATHING TX IN PLACE. PT ABLE TO TALK FULL SENTENCES
--- NOTE | 2018-11-21 15:58 | NUR ---
L ARM MORE SWOLLEN. REVIEWED WITH SOFTWARE ENGINEER ADVISOR MARY. NOT APPEARING TO BE INFILTRATED. TKO AT 10. ORDERS LASIX, GIVEN.
--- NOTE | 2018-11-21 16:28 | NUR ---
DR HAYES IN EARLIER, ORDRES FOR 1800 FLUID DAILY.
--- NOTE | 2018-11-21 17:26 | NUR ---
PT PLEASANT TODAY. DID TAKE NAP AFTER LAST PAIN PILL ABOUT 1330. STATES PAIN BETTER. LYING ON RT SIDE AT THIS TIME. PT ON 5L O2. ADJUSTED ARM BANDS TO LOOSEN AROUND L ARM. DR LEWIS ONE TIME IV LASIX. FAMILY IN ROOM AT THIS TIME. NO OTHER CONCERNS AT THIS TIME. BED IN LOW POSITION, CALL LITE IN REACH, CALLS APPROP
[2018-11-22 04:49] LABS: Hematocrit 25.8 % (33.0-51.0); Hemoglobin 8.4 g/dL (11.5-16.0)
[2018-11-22 05:04] LABS: Albumin, Blood 1.4 g/dL (3.4-5.0); Anion Gap 6 mmol/L (6-16); Blood Urea Nitrogen 39 mg/dL (8-24); Bun/Creatinine Ratio 46.9 (12.0-20.0); CO2, Blood 29 mmol/L (21-32); Calcium, Blood 7.8 mg/dL (8.5-10.1); Chloride, Blood 105 mmol/L (98-108); Creatinine, Blood 0.83 mg/dL (0.40-1.00); Glomerular Filtration Rate >60 (60-); Glucose, Blood 95 mg/dL (70-99); Phosphorus, Blood 2.9 mg/dL (2.5-4.9); Potassium, Blood 3.9 mmol/L (3.5-5.5); Sodium, Blood 140 mmol/L (136-145)
--- NOTE | 2018-11-22 05:50 | NUR ---
SHIFT SUMMARY PT ON OXIMIZER TONIGHT. HAS SLEPT WELL, MEDICATED DURING THE NIGHT FOR PAIN. NO ACUTE CHANGES, WILL CONTINUE TO MONITOR.
--- NOTE | 2018-11-22 11:10 | NUR ---
PT'S IV IS LEAKING THIS AM, IV D/C'D, IV ABX LATE. WILL ADMINISTER ONCE IV ACCESS IS OBTAINED BY CN. PT'S O2 REQUIREMENTS HAVE INCREASED FROM 5L TO 7L TO MAINTAIN SPO2 GREATER THAN 90%. PT WHEEZY THIS AM, PRN NEB GIVEN BY RT. DR. HAYES NOTIFIED OF THE ABOVE, NEW ORDERS RECIEVED.
--- NOTE | 2018-11-22 17:59 | NUR ---
PATIENT A/O X 4 AT BASE LINE WITH MOMENTS OF CONFUSION WITH DECREASED O2 SAT. THIS AM PATIENT HAD AUDIBLE WHEEZING. PATIENT WITH INCREASED O2 DEMANDS, AT START OF SHIFT PATIENT AT 5LPM AND NEEDED 7 LPM TO MAINTAIN O2 > 90% SAT. RT MADE AWARE AND PRN BREATHING TX GIVEN. ORDERED CXR, AWAITING RESULTS. X1 IV LASIX GIVEN. NON-PITTING EDEMA OBSERVED TO EVER, EVER FLOATED ON PILLOWS. PATIENT CONTINUES ON 5 L OF O2 VIA OXIMIZER AT THIS TIME, WITH O2 SATS IN HIGH 80'S TO LOW 90'S. PATIENT ENCOURAGED TO DEEP BREATH, FAN PROVIDED ON BEDSIDE TABLE. DRESSING TO COCCYX REMAINS CDI. PATIENT POSITIONED WITH PILLOWS. NOLASCO REMOVED PER ORDER WITH NO ISSUES. PATIENT CONTINUES TO C/O PAIN EVEN WITH CURRENT PRN PAIN MEDS. NO N/V.
--- NOTE | 2018-11-22 22:46 | NUR ---
11/22/18 2240 O2 SATS STAYING AT 86% ON 5 LPM. INCREASED TO 6 LPM AND O2 SATS NOW AT 92 %. MEDICATED FOR RT HIP PAIN.
--- NOTE | 2018-11-23 07:22 | NUR ---
11/23/18 0504 RESEARCH PSYCHOLOGIST answered call light and pt c/o SOB. PULSE OX= 80 % on 6 liters. RN in another room, RT CALLED AND EVALUATED. MARGARITA RT STATES HE HAD TO PUT HER ON 15 LPM VIA NON-REBREATHER AND O2 SATS = 92 % NOW. CALLED TO INFORM HIM OF EVENTS. SEE RT ORDERS ENTERED. PT RESTING NOW.
--- NOTE | 2018-11-23 07:28 | NUR ---
11/23/18 0710 PULSE OX ALARMING AND DIRECTOR OF EVENTS CALLED RN'S AT REPORT THAT O2 SATS = 45%. PT UNRESPONSIVE WITHOUT BREATHS. CPAP MASK LAYING ON BED. RAPID RESPONSE INITIATED.
--- NOTE | 2018-11-23 07:36 | NUR ---
0710 FULFILLMENT ASSOCIATE ENTERED ROOM TO OBTAIN VS. FULFILLMENT ASSOCIATE ALERTED THIS RN THAT SPO2 45% ON CONT OXIMETRY. THIS RN AND NOC RN ENTERED RM TO FIND THE PT ON RA, CPAP ON BED NEXT TO PT, SPO2 45%, PALE, APNEIC, NONRESPONSIVE. PT WAS PREVISOUSLY PLACED ON CPAP BY NOC RT FOR HYPOXIA AFTER NOC HOSPITALIST NOTIFIED OF HYPOXIA. 07 ASSEMBLY SUPERVISOR INITIATED, PT PLACED ON NONREBREATHER 15L O2. SPO2 SLOWLY INCREASING, BREATHING SLOWLY BEGAN TO INCREASE, COLOR IMPROVED. PT BECAME RESPONSIVE ONCE SPO2 WAS GREATER THAN 80%. AFTER SPO2 GREATER THAN 90%, RT PLACED PT ON OXIMIZER 8L O2. IT WAS ASSUMED THAT PT TOOK OFF CPAP MASK IN SLEEP THAT THAT SHE MAY REMOVE NONREBREATHER WHILE SLEEPING WELL.
--- NOTE | 2018-11-23 08:05 | NUR ---
0800 DR. HAYES NOTIFIED OF HEALTH SOCIAL WORK PROFESSOR, RECIEVED ORDER FOR PULMONARY CONSULT. SPOKE WITH DR. KERR VIA HER CELL PHONE.
[2018-11-23 12:12] LABS: Automated BF RBC Count 0.038 M/mm3 (0-0); Automated BF WBC Count 0.246 K/mm3 (0-999); Body Fluid WBC Count 246 /mm3 (0-999); RBC Count, Body Fluid 38000 /mm3 (0-0)
[2018-11-23 12:43] LABS: Protein, Body Fluid 1.2 g/dL
[2018-11-23 13:10] LABS: Total Cell Count, Body Fluid 100
[2018-11-23 13:11] LABS: Appearance, Body Fluid Bloody (Clear); Color, Body Fluid Red (None-Yellow)
[2018-11-23 13:38] LABS: Glucose, Body Fluid 94 mg/dL; Lactate Dehydrogenase, Body Fl 400 U/L
[2018-11-23 14:56] LABS: Total Protein, Blood 4.9 g/dL (6.4-8.2)
--- NOTE | 2018-11-23 18:36 | NUR ---
SHIFT SUMMARY: AFTER RAPID RESPONSE AT CHANGE OF SHIFT THIS AM PATIENT CONTINUED TO HAVE O2 SATS IN THE MID TO HIGH 80'S. PATIENT CONTINUED ON O2 VIA OXIMIZER @ 12 LPM. PATIENT WAS FATIGUED AND HAD LITTLE APPETITE. THOROCENTISIS ORDERED TODAY AND IT WAS REPORTED THAT 600 ML WAS REMOVED. AFTER THOROCENTISIS PATIENT REPORTS DECREASED PRESSURE IN HER CHEST WELL IMPROVED OXYGENATION. PATIENT ON 7 LPM OF O2 VIA OXIMIZER. DRESSING TO COCCYX WAS CHANGED AND MEASUREMENTS IN WOUND ASSESSMENT. PATIENT CONTINUES WITH DEPENDENT EDEMA TO HER LUE BUT HAS IMPROVED SINCE YESTERDAY, EXTREMITY FLOATED ON 2 PILLOWS. HEAT PAD WAS APPLIED TO BLE PER PATIENT REQUEST. PAIN CONTINUES TO BE ONGOING AND PRN MEDS GIVEN ORDERED. PATIENT RE-POSITIONED FREQUENTLY.
--- NOTE | 2018-11-24 05:17 | NUR ---
11/24/18 0510 Pulse oximeter alarming and O2 sat = 59 %. O2 OXIMEIZER WAS OFF NOSE AND ON HER CHEEK. RE-APPLIED O2 AND CALLED RTMARGARITA AND BOOK ILLUSTRATORITALO TO INFORM. O2 INCREASED TO 15 LPM FOR ONE MINUTE AND THEN REDUCED TO 12 LPM. O2 SAT = 94% NOW. BEFORE THIS EVENT PT WAS SATING ABOVE 90% ON 7 LPM.
[2018-11-24 05:56] LABS: Hematocrit 27.6 % (33.0-51.0); Hemoglobin 8.9 g/dL (11.5-16.0)
[2018-11-24 06:11] LABS: Albumin, Blood 1.5 g/dL (3.4-5.0); Anion Gap 6 mmol/L (6-16); Blood Urea Nitrogen 41 mg/dL (8-24); Bun/Creatinine Ratio 49.2 (12.0-20.0); CO2, Blood 31 mmol/L (21-32); Calcium, Blood 8.3 mg/dL (8.5-10.1); Chloride, Blood 103 mmol/L (98-108); Creatinine, Blood 0.83 mg/dL (0.40-1.00); Glomerular Filtration Rate >60 (60-); Glucose, Blood 107 mg/dL (70-99); Phosphorus, Blood 2.5 mg/dL (2.5-4.9); Sodium, Blood 140 mmol/L (136-145)
--- NOTE | 2018-11-24 16:52 | NUR ---
APPROX 1615 PATIENT CALLED THIS NURSE TO HER ROOM AND STATED SHE WAS HAVING A HARD TIME CATCHING HER BREATH. PATIENT ON 12 LPM VIA OXIMIZER AND O2 SAT 78 %. LUNG SOUNDS COARSE WITH WHEEZING. RT NOTIFIED AND REQUESTED BREATHING TX. PATIENT SWITCHED OVER TO NON-REBREATHER MASK @ 15 LPM BY RN AND O2 SAT WENT UP TO 84. ATTEMPTED TO CALL DR HOYT AND LEFT MESSAGE TO CALL BACK. RT ARRIVED TO BEDSIDE AND INITIATED A BREATHING TX. PATIENT CONTINUED TO HAVE LABORED BREATHING. RT SETTING UP CPAP. RETURNED CALL TO DR HOYT AND RECEIVED A ONE TIME ORDER FOR IV LASIX. IV LASIX GIVEN AND PATIENT ON CPAP. BREATHING NO LONGER LABORED. CPAP ON 14 LPM WITH BLEED IN. SPO2 @ 92% AT THIS TIME. PAIN MED GIVEN PER PATIENT REQUEST AND FOR COMFORT.
--- NOTE | 2018-11-25 04:47 | NUR ---
INVOICE CLERK SUMMARY NO ACUTE CHANGES THIS SHIFT. PT [id number] AND PLEASANT. PT NOW ON COMFORT CARE. PT REFUSED ALL OF HER REGULAR MEDICATIONS BUT REQUESTED TO HAVE METOPROLOL. TREATED FOR GENERALIZED PAIN X1 PER EMAR. MANY FAMILY MEMBERS IN TO VISIT PT THROUGH THE NIGHT. PT REMAINS ON NON REBREATHER AT 15L. AFTER FAMILY LEFT FOR THE NIGHT THE PT HAS BEEN RESTING COMFORTABLY. WILL CONTINUE TO MONITOR.
--- NOTE | 2018-11-25 13:35 | NUR ---
Comfort Care: Discussed with Triny, nurse. She states that pt has been oriented to situation today. She just went into the room recently and pt had pulled off her rebreather canula. Triny put it back on and educated on importance of keeping it on. Dr. Hussein is headed into the room. Pt appears comfortable and content in the bed. No s/s of pain, anxiety. Review of medications. It appears she is still on medications that should be discontinued. carafate, protonix, liitor, florastor, and prednisone have all been held by nursing last night and today due to comfort care and the pt refusing them. aranesp and darbepoetin should be discontinued, it appears. lasix and metorprolol have both been given yesterday and today. Recommend discontinuing meds that do not support comfort. By doing this, pill burden is reduced for hospice pt's and can be discontinued in the hospital prior to discharge for comfort. No other concerns, will remain available.
--- NOTE | 2018-11-25 15:07 | NUR ---
Spiritual care visit conducted. Patient opened our conversation with the statement that she is not doing well. As I began to explore the meaning of this (if she meant physically, mentally or emotionally), patient's family walked in and patient switched focus. Patient agreed to prayer before I left. I provided prayer and with patient and the family. Patient thanked me. I will continue to remain available to patient and family.
--- NOTE | 2018-11-25 17:47 | NUR ---
SHIFT SUMMARY PT HAS HAD NO COMPLAINTS THIS SHIFT. PT DENIES PAIN WHEN ASKED. THIS RN HAS FOUND HER NONREBREATHER OFF MULTIPLE TIMES THIS SHIFT. PT PULLS IT OFF AND HAS DIFFICULTY BREATHING WHEN ON OFF. THIS RN ENCOURAGED PT TO LEAVE ON. NO ACUTE CHANGES THIS SHIFT. WILL CONTINUE TO MONITOR FOR COMFORT AND REPORT TO ONCOMING RN.
--- NOTE | 2018-11-26 06:13 | NUR ---
AT APPROXIMATELY 0600, PT WAS FOUND . THE CHARGE NURSE AND NURSING DEBT COUNSELOR WERE NOTIFIED AT THAT TIME. THE HOSPITALIST DR GUZMÁN WAS NOTIFIED AT 0610, AND THE PT'S CONTACT, HER SON PARVIZ ELLIS, WAS ALSO NOTIFIED. PT'S SON STATED THEY WOULD MOST LIKELY BE COMING IN TO VISIT, BUT DECLINED PASTORAL CARE AT THIS TIME. HE STATED THAT HE WOULD CALL BACK WHEN HE HAD THE CHANCE TO SPEAK TO HIS FAMILY.
== END 2018-11-26 06:03 | DRG 871 ==
LOC: ER 16:13 → MEDS 21:32 → PCU 11-18 14:00 → MEDS 11-20 23:12 → ENPENDDIS 11-26 07:11
PROVIDERS: Hospitalist; Internal Medicine; Internal Medicine Critical Care Medicine; Internal Medicine Gastroenterology; Internal Medicine Nephrology; Nurse Practitioner Acute Care; Pharmacist; Physician Assistant; Student in an Organized Health Care Education/Training Program; ADMIT Hospitalist
PROC: 30233N1 Transfusion of Nonautologous Red Blood Cells into Peripheral Vein, Percutaneous Approach (ICD-10-PCS; 2018-11-18)
PROC: 0W3P8ZZ Control Bleeding in Gastrointestinal Tract, Via Natural or Artificial Opening Endoscopic (ICD-10-PCS; principal; 2018-11-18 12:30)
DX: A41.81 Sepsis due to Enterococcus (principal); R65.20 Severe sepsis without septic shock; J96.22 Acute and chronic respiratory failure with hypercapnia; J96.21 Acute and chronic respiratory failure with hypoxia; K25.4 Chronic or unspecified gastric ulcer with hemorrhage; J18.9 Pneumonia, unspecified organism; I50.43 Acute on chronic combined systolic (congestive) and diastolic (congestive) heart failure; K26.4 Chronic or unspecified duodenal ulcer with hemorrhage; S42.309A Unspecified fracture of shaft of humerus, unspecified arm, initial encounter for closed fracture; N39.0 Urinary tract infection, site not specified; D62 Acute posthemorrhagic anemia; E44.0 Moderate protein-calorie malnutrition; I13.0 Hypertensive heart and chronic kidney disease with heart failure and stage 1 through stage 4 chronic kidney disease, or unspecified chronic kidney disease; J44.0 Chronic obstructive pulmonary disease with (acute) lower respiratory infection; J44.1 Chronic obstructive pulmonary disease with (acute) exacerbation; J44.9 Chronic obstructive pulmonary disease, unspecified; R91.8 Other nonspecific abnormal finding of lung field; I48.2 Chronic atrial fibrillation; Z79.01 Long term (current) use of anticoagulants; D50.0 Iron deficiency anemia secondary to blood loss (chronic); I25.10 Atherosclerotic heart disease of native coronary artery without angina pectoris; N18.3 Chronic kidney disease, stage 3 (moderate); K57.90 Diverticulosis of intestine, part unspecified, without perforation or abscess without bleeding; Y95 Nosocomial condition; Z51.5 Encounter for palliative care; Z87.891 Personal history of nicotine dependence; Z99.81 Dependence on supplemental oxygen; E11.22 Type 2 diabetes mellitus with diabetic chronic kidney disease; D63.1 Anemia in chronic kidney disease; Z79.82 Long term (current) use of aspirin; D69.6 Thrombocytopenia, unspecified; L89.152 Pressure ulcer of sacral region, stage 2; E11.622 Type 2 diabetes mellitus with other skin ulcer; E83.51 Hypocalcemia; M54.30 Sciatica, unspecified side; I48.0 Paroxysmal atrial fibrillation; I71.4 Abdominal aortic aneurysm, without rupture
CPT/HCPCS: 32555; 36415; 36416; 36430; 36600; 51702; 71045; 71046; 71260; 76770; 76775; 80048; 80053; 80069; 80202; 81001; 82270; 82274; 82330; 82607; 82728; 82746; 82803; 82945; 82947; 83540; 83550; 83605; 83615; 83690; 83735; 83880; 84100; 84145; 84155; 84157; 84484; 85014; 85018; 85025; 85610; 85651; 85730; 86022; 86140; 86850; 86900; 86901; 86923; 87040; 87070; 87077; 87086; 87186; 87205; 87449; 88108; 88305; 89051; 93005; 93010; 93975; 94640; 94660; 94667; 94760; 94762; 96365; 96375; 96376; 97110; 97162; 97167; 97530; 97535; 99285-25; A9270; A9270-GY; C9113; J0610; J0696; J0881; J1610; J1650; J1940; J2185; J2370; J2405; J2704; J3010; J3370; J7030; J7050; J7060; J7120; J7512; P9016; Q9967